=== PATIENT | male | born 1935 | race Caucasian/White ===

== ENCOUNTER 2020-01-28 17:50 | Inpatient (IN) | payer MEDICARE ==
[2020-01-28] MEDS ORDERED: ACETAMINOPHEN TAB 500 MG TAB PO STA (18:35)
[2020-01-28] MEDS ORDERED: DEXAMETHASONE SOD PHOSPHATE 10 MG/ML 1 ML VIAL IV STA (18:37)
[2020-01-28 18:44] LABS: Basophils % (A) 0 %; Eosinophils % (A) 0 %; HCT 48.5 % (39.0-53.0); HGB 16.2 gm/dL (13.0-17.5); Lymphocytes # (A) 0.5 k/uL (1.0-4.8); Lymphocytes % (A) 11 %; MCH 27.4 pg (25.0-35.0); MCHC 33.5 g/dL (31.0-37.0); Mean Platelet Volume 7.7; Monocytes # (A) 0.5 k/uL (0-1.0); Monocytes % (A) 10 %; Neutrophils # (A) 3.4 k/uL (1.3-7.7); Neutrophils % (A) 76 %; Platelet Count 214 k/uL (150-450); RBC 5.91 m/uL (4.30-5.90); RDW 13.5 % (11.5-15.5); WBC 4.5 k/uL (3.8-10.6)
--- NOTE | 2020-01-28 18:45 | ED ---
General Adult HPI - General Chief complaint: Shortness of Breath Stated complaint: covid symptoms Time Seen by Provider: 01/28/20 18:00 Source: patient, EMS Mode of arrival: EMS Limitations: no limitations - History of Present Illness Initial comments: Dictation was produced using [employer] dictation software. please excuse any grammatical, word or spelling errors. This patient was cared for during a federal and state declared state of emergency secondary to Covid 19 Chief Complaint: 84-year-old male with positive Covid 19 tests and increased shortness of breath History of Present Illness: 84-year-old male he is a poor historian. He has past medical history of COPD, dyslipidemia and hypertension. Patient is brought in by EMS. According to the nurse received report patient had tested positive or coronavirus 4 days ago. Him and his were both positive. What seems to be recovering well however patient has been having worsening dyspnea. Patient states he does feel short of breath especially worse with exertion. He denies any fevers however states that he does feel hot. He has no pain complaints. The ROS documented in this emergency department record has been reviewed and confirmed by me. Those systems with pertinent positive or negative responses have been documented in the HPI. All other systems are other negative and/or noncontributory. PHYSICAL EXAM: General Impression: Alert and oriented x3, not in acute distress HEENT: Normocephalic atraumatic, extra-ocular movements intact, pupils equal and reactive to light bilaterally, mucous membranes moist. Cardiovascular: Heart regular rate and rhythm Chest: Able to complete full sentences, no retractions, no tachypnea Abdomen: abdomen soft, non-tender, non-distended, no organomegaly Musculoskeletal: Pulses present and equal in all extremities, no peripheral edema Motor: no focal deficits noted Neurological: CN II-XII grossly intact, no focal motor or sensory deficits noted Skin: Intact with no visualized rashes Psych: Normal affect and mood ED course: 84-year-old male presents with Covid 19. vital signs upon arrival shows temperature 11.3, heart rate 104, 82% on room air. Patient placed on supplemental oxygen. CT angios does not show any PEs. There is extensive pulmonary infiltrates with concern of superimposed pneumonia. Patient started on azithromycin. The patient is hypoxic he is stable with supplemental oxygen. Laboratory evaluation obtained. CBC shows lymphocytopenia. Coag panel is negative. D-dimer is 2.06. Arterial blood gas shows pH is 7.46 with a previous CO2 of 32 and a pO2 54. Metabolic panel is unremarkable. LDH is a 45, CRP is 42.0. Patient be admitted. At this point patient appears to be relatively stable. No indication for ICU admission at this time. Case was discussed with Dr. Mcfadden is willing to accept patients care. Pulmonology will be on consult. EKG interpretation: Ventricular rate 103, sinus tachycardia,. Interval 154, QRS 140, QTc 482. No VA prolongation, no QTC prolongation, no ST or T-wave changes noted. No EKG for comparison. Right bundle branch block - Related Data Allergies Allergy/AdvReac Type Severity Reaction Status Date / Time No Known Allergies Allergy Verified 01/28/20 18:15 Review of Systems ROS Statement: Those systems with pertinent positive or pertinent negative responses have been documented in the HPI. ROS Other: All systems not noted in ROS Statement are negative. Past Medical History Past Medical History: COPD, Diabetes Mellitus Additional Past Medical History / Comment(s): Shingles. History of Any Multi-Drug Resistant Organisms: None Reported Past Surgical History: Hernia Repair Past Psychological History: No Psychological Hx Reported Smoking Status: Former smoker Past Alcohol Use History: Occasional Past Drug Use History: None Reported General Exam Limitations: no limitations Course Vital Signs 01/28/20 01/28/20 18:07 19:21 Temperature 101.3 F H 99.4 F Pulse Rate 104 H Respiratory 22 Rate Blood Pressure 124/68 O2 Sat by Pulse 82 L Oximetry Medical Decision Making - Lab Data Result diagrams: 01/28/20 18:40 01/28/20 18:40 Lab Results 01/28/20 01/28/20 01/28/20 Range/Units 18:40 18:40 18:40 WBC 4.5 (3.8-10.6) k/uL RBC 5.91 H (4.30-5.90) m/uL Hgb 16.2 (13.0-17.5) gm/dL Hct 48.5 (39.0-53.0) % MCV 82.0 (80.0-100.0) fL MCH 27.4 (25.0-35.0) pg MCHC 33.5 (31.0-37.0) g/dL RDW 13.5 (11.5-15.5) % Plt Count 214 (150-450) k/uL MPV 7.7 Neutrophils % 76 % Lymphocytes % 11 % Monocytes % 10 % Eosinophils % 0 % Basophils % 0 % Neutrophils # 3.4 (1.3-7.7) k/uL Lymphocytes # 0.5 L (1.0-4.8) k/uL Monocytes # 0.5 (0-1.0) k/uL Eosinophils # 0.0 (0-0.7) k/uL Basophils # 0.0 (0-0.2) k/uL PT 10.3 (9.0-12.0) sec INR 1.0 (<1.2) APTT 26.1 (22.0-30.0) sec D-Dimer 2.06 H (<0.60) mg/L FEU Sample Site ABG pH (7.35-7.45) ABG pCO2 (35-45) mmHg ABG pO2 (83-108) mmHg ABG HCO3 (21-25) mmol/L ABG Total CO2 (19-24) mmol/L ABG O2 Saturation (94-97) % ABG Base Excess mmol/L Sal Test FiO2 % Sodium 131 L (137-145) mmol/L Potassium 4.4 (3.5-5.1) mmol/L Chloride 101 (98-107) mmol/L Carbon Dioxide 22 (22-30) mmol/L Anion Gap 8 mmol/L BUN 34 H (9-20) mg/dL Creatinine 1.14 (0.66-1.25) mg/dL Est GFR (CKD-EPI)AfAm 69 (>60 ml/min/1.73 sqM) Est GFR (CKD-EPI)NonAf 60 (>60 ml/min/1.73 sqM) Glucose 111 H (74-99) mg/dL Plasma Lactic Acid Cedric (0.7-2.0) mmol/L Calcium 8.9 (8.4-10.2) mg/dL Magnesium 1.9 (1.6-2.3) mg/dL Total Bilirubin 0.8 (0.2-1.3) mg/dL AST 58 (17-59) U/L ALT 30 (4-49) U/L Alkaline Phosphatase 79 (38-126) U/L Lactate Dehydrogenase 849 H (313-618) U/L C-Reactive Protein 42.0 H (<10.0) mg/L Total Protein 6.6 (6.3-8.2) g/dL Albumin 3.4 L (3.5-5.0) g/dL 01/28/20 01/28/20 Range/Units 18:40 19:31 WBC (3.8-10.6) k/uL RBC (4.30-5.90) m/uL Hgb (13.0-17.5) gm/dL Hct (39.0-53.0) % MCV (80.0-100.0) fL MCH (25.0-35.0) pg MCHC (31.0-37.0) g/dL RDW (11.5-15.5) % Plt Count (150-450) k/uL MPV Neutrophils % % Lymphocytes % % Monocytes % % Eosinophils % % Basophils % % Neutrophils # (1.3-7.7) k/uL Lymphocytes # (1.0-4.8) k/uL Monocytes # (0-1.0) k/uL Eosinophils # (0-0.7) k/uL Basophils # (0-0.2) k/uL PT (9.0-12.0) sec INR (<1.2) APTT (22.0-30.0) sec D-Dimer (<0.60) mg/L FEU Sample Site L radial ABG pH 7.46 H (7.35-7.45) ABG pCO2 32 L (35-45) mmHg ABG pO2 54 L* (83-108) mmHg ABG HCO3 22 (21-25) mmol/L ABG Total CO2 23 (19-24) mmol/L ABG O2 Saturation 89.2 L (94-97) % ABG Base Excess -1.5 mmol/L Sal Test Yes FiO2 45 % Sodium (137-145) mmol/L Potassium (3.5-5.1) mmol/L Chloride (98-107) mmol/L Carbon Dioxide (22-30) mmol/L Anion Gap mmol/L BUN (9-20) mg/dL Creatinine (0.66-1.25) mg/dL Est GFR (CKD-EPI)AfAm (>60 ml/min/1.73 sqM) Est GFR (CKD-EPI)NonAf (>60 ml/min/1.73 sqM) Glucose (74-99) mg/dL Plasma Lactic Acid Cedric 1.6 (0.7-2.0) mmol/L Calcium (8.4-10.2) mg/dL Magnesium (1.6-2.3) mg/dL Total Bilirubin (0.2-1.3) mg/dL AST (17-59) U/L ALT (4-49) U/L Alkaline Phosphatase (38-126) U/L Lactate Dehydrogenase (313-618) U/L C-Reactive Protein (<10.0) mg/L Total Protein (6.3-8.2) g/dL Albumin (3.5-5.0) g/dL Critical Care Time Critical Care Time: Yes Total Critical Care Time: 33 Disposition Clinical Impression: COVID-19 Disposition: ADMITTED IP TO THIS [facility] Condition: Critical Referrals: Nonstaff,Physician [Primary Care Provider] - 1-2 days Decision Time: 20:23
[2020-01-28 18:56] LABS: Albumin 3.4 g/dL (3.5-5.0); Calcium 8.9 mg/dL (8.4-10.2); Magnesium 1.9 mg/dL (1.6-2.3); Potassium 4.4 mmol/L (3.5-5.1); Total Bilirubin 0.8 mg/dL (0.2-1.3); Total Protein 6.6 g/dL (6.3-8.2)
[2020-01-28 19:10] LABS: Partial Thromboplastin Time 26.1 sec (22.0-30.0); Prothrombin Time 10.3 sec (9.0-12.0)
[2020-01-28 19:28] LABS: D-Dimer 2.06 mg/L FEU (<0.60)
[2020-01-28 19:34] LABS: ABG Base Excess -1.5 mmol/L; ABG HCO3 22 mmol/L (21-25); ABG Oxygen Saturation 89.2 % (94-97); ABG PCO2 32 mmHg (35-45); ABG PH 7.46 (7.35-7.45); ABG TCO2 23 mmol/L (19-24); Allen Test Performed? Yes
--- NOTE | 2020-01-28 19:44 | XR ---
EXAMINATION TYPE: XR chest 1V portable DATE OF EXAM: 01/28/2020 COMPARISON: NONE HISTORY: Short of breath TECHNIQUE: Single view FINDINGS: There is coarse interstitial infiltrate throughout the lungs. There is some mild coalescent density at the lung bases. There is no definite heart failure. Heart size is normal. There are no hi lar masses. Thoracic aorta is atheromatous. IMPRESSION: Pulmonary interstitial fibrosis. Bilateral pulmonary interstitial infiltrates could relat e to some degree of acute pneumonia. Comparison with an old exam would be helpful. There is no eviden ce of any significant pleural fluid and no cardiomegaly to suggest heart failure.
[2020-01-28 19:48] LABS: ABG PO2 54 mmHg (83-108)
--- NOTE | 2020-01-28 20:17 | CT ---
EXAMINATION TYPE: CT angio chest DATE OF EXAM: 01/28/2020 COMPARISON: None HISTORY: Increased SOB, elevated d-dimer, + covid CT DLP: 701 mGycm Automated exposure control for dose reduction was used. CONTRAST: Performed with IV Contrast, patient injected with 100 mL of Isovue 370. There are 3-D post processed images. There is bullous emphysema. There is coarse groundglass patchy interstitial and airspace infiltrates in the mid and lower lung simon. Heart is borderline enlarged. There is no pericardial effusion. The re is no mediastinal adenopathy. There are no hilar masses. 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 There is no dissection. There is normal contrast opacification of the pulmonary arteries. There are no filling defects. There is no pleural effusion. The thoracic spine is intact. There is no compression fracture. Sternum is intact. I see no bony destructive process. IMPRESSION: No evidence of pulmonary embolism. Extensive pulmonary infiltrates consistent with pulmonary fibrosis and some superimposed mild pneumon ia and atelectasis at the posterior lung bases. There is pulmonary emphysema. Thoracic aortic aneurys m.
[2020-01-28] MEDS ORDERED: AZITHROMYCIN 500 MG in SODIUM CHLORIDE 0.9% 250 ML IVPB STA (20:22)
[2020-01-28] MEDS ORDERED: NALOXONE 0.4 MG/ML 1 ML VIAL IV PRN (20:23)
[2020-01-28] MEDS: SODIUM CHLORIDE 0.9% 1,000 ML IV SCH (21:36)
--- NOTE | 2020-01-28 22:40 | P.HPIM ---
History of Present Illness H&P Date: 01/28/20 Chief Complaint: hypoxemia 84-year-old male with COPD, not on home oxygen, hyperlipidemia, hypertension, diabetes He comes in today for hypoxemia. He reports being diagnosed with converted about 5 days ago, he's been having upper respiratory infection symptoms for about 10 days now he has seen his doctor about it for which she was given azithromycin and Medrol Dosepak. Patient reports that his has been improving however today the bottom a pulse oximeter and when he checked his oxygen level was very low down in the 80s and his was normal for which she decided to come to the hospital He reports coughing productive of yellowish sputum no hemoptysis he denies any recent traveling or hospitalization he denies any history of blood clots he denies any sore throat or body aches he denies any loss of smell or taste sensation. He admits to very mild dyspnea however he feels that overall he's been improving except for the hypoxemia that he discovered today which is making him very concerned He otherwise denies any GI bleeding he denies any nausea vomiting or diarrhea In the ED he was found to have oxygen level in the 80s improved with high flow oxygen he was febrile heartrate is elevated blood pressure was within normal limits Lactic acid was normal He had elevated LDH and CRP elevated d-dimer, CTA of the chest showed no evidence of acute PE however did show omitted fibrosis and superimposed infiltrates Review of Systems Pertinent positives as noted in HPI. All other systems were reviewed and are negative Past Medical History Past Medical History: COPD, Diabetes Mellitus Additional Past Medical History / Comment(s): Shingles. History of Any Multi-Drug Resistant Organisms: None Reported Past Surgical History: Hernia Repair Past Psychological History: No Psychological Hx Reported Smoking Status: Former smoker Past Alcohol Use History: Occasional Past Drug Use History: None Reported - Past Family History Family Family Medical History: No Reported History Medications and Allergies Allergies Allergy/AdvReac Type Severity Reaction Status Date / Time No Known Allergies Allergy Verified 01/28/20 18:15 Physical Exam Vitals: Vital Signs Temp Pulse Resp BP Pulse Ox 01/28/20 19:21 99.4 F 01/28/20 18:07 101.3 F H 104 H 22 124/68 82 L Intake and Output 01/28/20 01/28/20 01/28/20 06:59 14:59 22:59 Other: Weight 104.326 kg Constitutional: No acute distress, conversant, pleasant Eyes: Anicteric sclerae, moist conjunctiva, Pupils equal round reactive to light ENMT: NC/AT Oropharynx clear, no erythema, no exudates Neck: Supple, FROM, no masses, or JVD No carotid bruits No thyromegaly Lungs: Clear to auscultation Clear to percussion Normal respiratory effort, no accessory muscle use Cardiovascular: Heart regular in rate and rhythm, No murmurs, gallops, or rubs No peripheral edema Abdominal: Soft Nontender, no guarding, rebound or rigidity Abdomen moving with respiration Normoactive bowel sounds No hepatomegaly, No splenomegaly No palpable mass No abdominal wall hernia noted Skin: Normal temperature, tone, texture, turgor No induration No subcutaneous nodules No rash, lesions No ulcers Extremities: No digital cyanosis No clubbing Pedal pulses intact and symmetrical Radial pulses intact and symmetrical No calf tenderness Psychiatric: Alert and oriented to person, place and time Appropriate affect fair judgement Neuro Muscles Strength 5/5 in all 4 extremities Sensation to light touch grossly present throughout Cranial nerves II-XII grossly intact No focal sensory deficits Lymphatics: no palpable cervical or supraclavicular , or inguinal lymph nodes Results CBC & Chem 7: 01/28/20 18:40 01/28/20 18:40 Labs: Abnormal Lab Results - Last 24 Hours (Table) 01/28/20 01/28/20 01/28/20 Range/Units 18:40 18:40 18:40 RBC 5.91 H (4.30-5.90) m/uL Lymphocytes # 0.5 L (1.0-4.8) k/uL D-Dimer 2.06 H (<0.60) mg/L FEU Sodium 131 L (137-145) mmol/L BUN 34 H (9-20) mg/dL Glucose 111 H (74-99) mg/dL Lactate Dehydrogenase 849 H (313-618) U/L C-Reactive Protein 42.0 H (<10.0) mg/L Albumin 3.4 L (3.5-5.0) g/dL Assessment and Plan Assessment: Acute hypoxic respiratory failure with underlying Covid 19 Acute viral pneumonitis with positive Covid Plan Supportive care Supplemental oxygen Tylenol for fever Dexamethasone 6 mg by mouth daily for 10 days Ferritin, LDH, CRP, d-dimer for prognostic evaluation EKG showed sinus tachycardia with right bundle branch block Check influenza Contact and droplet precautions Chronic conditions COPD currently compensated resume home inhalers Hyperlipidemia Hypertension resume home meds Diabetes insulin sliding scale CODE STATUS: No code DVT prophylaxis: Heparin subcu 3 times a day Discussed with: Patient, ER, RN Anticipated length of stay more than [address]: Home A total of 75 minutes was spent on the care of this complex patient more than 50% of the time was spent in counseling and care coordination.
--- NOTE | 2020-01-28 22:48 | P.HPADDEND ---
H&P Addendum H&P Addendum Date: 01/28/20 Advanced Care Planning Active diagnoses: Acute hypoxic respiratory failure with cold with pneumonitis Background: The patient was admitted for treatment of Acute hypoxic respiratory failure with cold with pneumonitis Discussion: Person(s) present and participating in discussion: The patient, and myself Summary: Patient is expressing a lot of concerns regarding his low oxygen level with the COVID pneumonitis, patient is requesting that everything medically possible to be done for him he would like to pursue CPR and resuscitation if he experiences cardiopulmonary arrest he's also asking to pursue intubation and vent support if needed he understands that these complications with carry very poor outcomes but he wants everything medically possible to be trialed. He is hoping that he will recover he sees that his is doing well and he hopes that his oxygen problem will improve with the medical treatment. Patient asked questions regarding advancement in the management of Covid and he was willing to try anything available in our hospital to help him improve Time spent: Total time spent face to face in education and discussion directly related to advanced care plannin minutes
[2020-01-28] MEDS ORDERED: DOCUSATE 100 MG CAP PO PRN (22:49)
[2020-01-28] MEDS ORDERED: IPRATROPIUM-ALBUTEROL 3 ML NEB INHALATION PRN (22:50)
[2020-01-29] MEDS: HEPARIN SODIUM,PORCINE 5,000 UNIT/ML 1 ML VIAL SQ SCH ×4 (00:11→20:47)
[2020-01-29] MEDS: ATORVASTATIN 40 MG TAB PO SCH ×2 (00:11→20:46)
[2020-01-29] MEDS: carBAMazepine 200 MG TAB PO SCH ×3 (00:11→20:47)
[2020-01-29 01:15] LABS: Ferritin 1128.7 ng/mL (22.0-322.0)
[2020-01-29 06:26] LABS: Glucose,Whole Blood 113 mg/dL (75-99)
[2020-01-29] MEDS: INSULIN ASPART (NovoLOG) 100 UNIT/ML VIAL SQ SCH ×4 (06:28→23:35)
[2020-01-29 08:34] LABS: Calcium 8.6 mg/dL (8.4-10.2); Potassium 4.3 mmol/L (3.5-5.1)
[2020-01-29] MEDS: TIOTROPIUM 18 MCG/PUFF INHALER INHALATION SCH (08:46)
[2020-01-29] MEDS: SYMBICORT 160-4.5 MCG INHALER INHALATION SCH ×2 (08:46→20:10)
[2020-01-29] MEDS: ALBUTEROL HFA INHALER INHALATION PRN ×3 (08:47→20:10)
[2020-01-29] MEDS: dexAMETHasone 2 MG TAB PO SCH (09:17)
[2020-01-29] MEDS: FLUTICASONE 50MCG/SPRAY NASAL 16GM EA NOSTRIL SCH (09:17)
[2020-01-29] MEDS: ASPIRIN 81 MG PO SCH (09:18)
[2020-01-29] MEDS: ENOXAPARIN 40 MG/0.4 ML SYRINGE SQ SCH (09:18)
[2020-01-29] MEDS: LOSARTAN 50 MG TAB PO SCH (09:18)
[2020-01-29 12:08] LABS: ABG Base Excess -0.2 mmol/L; ABG HCO3 24 mmol/L (21-25); ABG Oxygen Saturation 98.2 % (94-97); ABG PCO2 38 mmHg (35-45); ABG PH 7.42 (7.35-7.45); ABG PO2 104 mmHg (83-108); ABG TCO2 26 mmol/L (19-24); Allen Test Performed? Yes
[2020-01-29 12:15] LABS: Glucose,Whole Blood 120 mg/dL (75-99)
[2020-01-29] MEDS: ZINC SULFATE 220 MG CAP PO SCH (12:53)
[2020-01-29] MEDS: ASCORBIC ACID 500 MG TAB PO SCH (12:53)
[2020-01-29] MEDS: CHOLECALCIFEROL 1,000 UNIT TAB PO SCH (12:53)
[2020-01-29] MEDS: FAMOTIDINE 20 MG TAB PO SCH (12:53)
[2020-01-29] MEDS ORDERED: REMDESIVIR 200 MG in SODIUM CHLORIDE 0.9% 250 ML IVPB ONE (17:00)
[2020-01-29 17:01] LABS: Glucose,Whole Blood 126 mg/dL (75-99)
--- NOTE | 2020-01-29 17:23 | CONS ---
CONSULTATION PULMONARY/CRITICAL CARE CONSULTATION: DATE OF SERVICE: January 29, 2020 REASON FOR CONSULTATION: Shortness of breath. HISTORY OF PRESENT ILLNESS: This is an 84-year-old male who I am asked to see. The patient comes into the emergency room via EMS. He came with complaints of shortness of breath. He is a very poor historian. Apparently, him and his recently tested positive for COVID-19. The patient states that he tested positive some 7 days ago. The ER erin mentioned 4 days ago. The patient apparently does have a history of underlying COPD, hypertension and hyperlipidemia. The patient states that he was doing okay initially at home, but over the last couple days it has just been getting worse. He complains of being fatigued and tired. He is also much more short of breath. He has chest congestion, cough and slight fever. Coughing up a bit of phlegm. Apparently his is doing better than he. Anyway, the patient was admitted with a diagnosis of possible COVID 19 pneumonia. He was seen by Dr. Bridges in the emergency department. Currently, the patient is on AIRVO. His he is using at 60 L/minutes and 80% FiO2. His saturations are 95%. ALLERGIES: Denied. HOME MEDICATIONS: Include metformin, Lipitor, Spiriva, Flonase Allergy relief, Symbicort, losartan, lisinopril/hydrochlorothiazide, Tegretol, aspirin, Colace, Medrol Dosepak, and Zithromax. Those were recently prescribed to him. He is also on albuterol inhaler and/or albuterol updrafts. PAST MEDICAL HISTORY: Includes COPD, diabetes, and shingles. He also has a history of underlying COPD, and hyperlipidemia as well as hypertension. SURGICAL HISTORY: Includes hernia repair. SOCIAL HISTORY: Positive for previous heavy tobacco use. Does not smoke currently. He does drink alcohol occasionally. Denies any illicit drug use. FAMILY HISTORY: Noncontributory. REVIEW OF SYSTEMS: CONSTITUTIONAL: Weakness, fatigue, muscle aches. NEUROLOGIC negative. HEENT negative. CARDIOVASCULAR is negative. PULMONARY: Shortness of breath, chest congestion, cough, chest tightness and phlegm production. GI negative. negative. RHEUMATOLOGIC negative. IMMUNOLOGIC negative. ENDOCRINOLOGIC negative. DERMATOLOGIC: Negative. PHYSICAL EXAMINATION: VITAL SIGNS: Current vital signs are reviewed. Temperature is 98.7, heart rate 104, respiratory rate 20, blood pressure 99/67 mean 77 and saturations are 95%, but that is on AIRVO at 60 L/minute and FiO2 of 80%. GENERAL: Appears mildly tachypneic. No wheezes. No conversational dyspnea, no use of accessory muscles. HEENT: Examination is grossly unremarkable. AIRVO cannula noted. NECK: Supple. Full range of motion. No adenopathy. Neck veins are flat. CARDIOVASCULAR: Examination reveals regular rhythm and rate. Heart rate 100 beats per minute. It is regular. Heart sounds are distant. LUNGS: Reveal a number of different things including diffuse bibasilar crackles. There is also some expiratory rhonchi and some wheezes. Breath sounds equal bilaterally but diminished throughout. ABDOMEN: Soft. Bowel sounds are heard. EXTREMITIES are intact. No edema. SKIN: Without rash. NEUROLOGIC: Examination is brief but nonfocal. LABS: Reviewed. White count 4.5, hemoglobin 16.2, hematocrit 48.5, platelet count 214,000. PT 10.3, INR 1, PTT 26.1. D-dimer 2.06. Blood gases show pO2 of 104, pCO2 of 38, and pH is 7.42. That was on 80%. On 45%, his PO2 is 54, pCO2 of 32, and pH of 7.46. Sodium 139, potassium 4.3 chloride 102, CO2 26, anion gap is 7, BUN and creatinine were 32 and 1.15. Ferritin of 1128.7, LDH 849. C-reactive protein 42. Procalcitonin 0.11. Microbiology is currently pending or negative. Chest CT reveals no evidence of pulmonary embolism. There is some interstitial fibrosis noted. In addition, there is some ground-glass opacities as well. Also, there is some changes that suggest emphysema/COPD. Current medications are reviewed. He is currently on Tylenol, albuterol inhaler, vitamin C, aspirin, Lipitor, Symbicort, Tegretol, vitamin D3, Decadron, Colace, Lovenox, Pepcid, fluticasone nasal spray, subcu heparin, losartan, melatonin, Narcan, Remdesivir which we started today, saline IV, Spiriva and zinc. ASSESSMENT: 1. Shortness of breath, likely multifactorial, in part related to underlying chronic obstructive pulmonary disease exacerbation, chronic interstitial fibrosis, and Covid 19 pneumonitis/pneumonia. 2. Previous history of heavy tobacco use. 3. History of diabetes mellitus. 4. History of shingles. 5. History of hyperlipidemia. 6. Hypertension by history. PLAN: The patient's medications are reviewed. Everything appears to be appropriate. We will continue on Symbicort, 2 puffs twice a day. Additional recommendations and suggestions are forthcoming. The patient is on vitamin C, vitamin D, and zinc. The patient is also on Decadron. The patient was started on Remdesivir today. The patient will be maintained on albuterol inhaler, Spiriva and Symbicort. Prognosis is guarded. No additional recommendations are made. MMODL / IJN: [id number] / MTDD
[2020-01-29] MEDS ORDERED: TAMSULOSIN 0.4 MG CAP.ER.24H PO STA (19:38)
--- NOTE | 2020-01-29 19:38 | P.PN ---
Subjective Progress Note Date: 01/29/20 (delayed charting seen at 1130) Principal diagnosis: shortness of breath Patient is an 84-year-old male for history of COPD not requiring oxygen therapy, diabetes, and shingles who presented to the emergency department with complaints of worsening dyspnea. He was diagnosed with coated 5 days prior to admission. He has been taking Zithromax and a Medrol Dosepak. On arrival to the ER he was febrile with a temperature of 101.3, pulse 104, O2 saturation 82% on room air. Laboratory analysis demonstrated lymphopenia, d-dimer of 2, sodium 131 on a BUN 34, creatinine 1.14, ferritin 1128, LDH 849, CRP 42, pro- calcitonin 0.11. Chest x-ray demonstrated pulmonary interstitial fibrosis with bilateral interstitial infiltrates. CT of the chest showed extensive pulmonary infiltrates consistent with pulmonary fibrosis and some superimposed pneumonia and atelectasis, no evidence of pulmonary embolism. Arrangements were made for admission for coated 19 pneumonitis. He was started on IV fluids, Lovenox, and dexamethasone. He was admitted to the selective care unit. He was requiring AirVo. Pulmonary was consulted. He was started on zinc, vitamin C, vitamin D, and melatonin. After being seen by pulmonary who was started on Remdesivir. Patient seen and examined at bedside. he is clearly confused. He states his breathing is better than yesterday, he is coughing less, no nausea, no vomiting, not feeling very hungry. General: Ill appearing, mild distress, appears at stated age Derm: warm, dry Head: atraumatic, normocephalic, symmetric Eyes: EOMI, no lid lag, anicteric sclera Mouth: no lip lesion, mucus membranes moist Cardiovascular: S1 and S2 tachycardic, no murmur, positive posterior tibial pulse bilateral, Lungs: Coarse breath sounds bilateral, 3 word conversational dyspnea, sternal retractions Abdominal: soft, nontender to palpation, no guarding, no appreciable organomegaly Ext: no gross muscle atrophy, no edema, no contractures Neuro: CN II-XI grossly intact, no focal neuro deficits Psych: Alert to being in the hospital but easily confused, appropriate affect COVID 19 pneumonitis with acute hypoxic respiratory failure -Dexamethasone, zinc, vitamin C, vitamin D, Pepcid, melatonin -Pulmonary recommendations:Remedesivir -IV fluids -Follow inflammatory markers -Follow chest x-ray -Wean O2 as able COPD without acute exacerbation -Continue with albuterol, Spiriva, and Symbicort -Pulmonary recommendations -Pulmonary hygiene Metabolic encephalopathy -Supportive care -Frequent reorientation -To check an ABG which did not reveal any signs of hypoxia or hyper A.m., glucose within normal range Diabetes mellitus type 2 -Metformin on hold -Sliding-scale insulin -Follow blood sugars -Check hemoglobin A1c Urinary retention with penile implant - consult urology Dyslipidemia -Statin therapy Hypertension -Continue with Cozaar, hold hydrochlorothiazide -Follow blood pressures Prognosis Guarded DVT prophylaxis: lovenox Discussed with: Patient, nursing Anticipated discharge: 7-[address]: A total of 35 minutes was spent on the care of this complex patient more than 50% of the time was spent in counseling and care coordination. Objective - Vital Signs Vital signs: Vital Signs Temp 98.7 F 01/29/20 16:50 Pulse 94 01/29/20 16:50 Resp 20 01/29/20 16:50 BP 102/64 01/29/20 16:50 Pulse Ox 97 01/29/20 16:50 Intake & Output 01/29/20 01/29/20 01/30/20 06:59 18:59 06:59 Intake Total 870 360 Output Total 3 350 Balance 867 10 Weight 102.5 kg Intake: Intake, IV Titration 390 Amount Azithromycin 500 mg In 250 Sodium Chloride 0.9% 250 ml @ 250 mls/hr IVPB ONCE STA Rx#:[id number] Sodium Chloride 0.9% 1, 140 000 ml @ 75 mls/hr IV . [id number] [facility] Rx#:[id number] Oral 480 360 Output: Urine 3 350 Other: Voiding Method Urinal # Voids 450 - Labs CBC & Chem 7: 01/28/20 18:40 01/29/20 06:47 Labs: Abnormal Lab Results - Last 24 Hours (Table) 01/28/20 01/28/20 01/28/20 Range/Units 18:40 18:40 18:40 D-Dimer 2.06 H (<0.60) mg/L FEU ABG pH (7.35-7.45) ABG pCO2 (35-45) mmHg ABG pO2 (83-108) mmHg ABG Total CO2 (19-24) mmol/L ABG O2 Saturation (94-97) % Sodium (137-145) mmol/L BUN (9-20) mg/dL Glucose (74-99) mg/dL POC Glucose (mg/dL) (75-99) mg/dL Ferritin 1128.7 H (22.0-322.0) ng/mL Procalcitonin 0.11 H (0.02-0.09) ng/mL 01/28/20 01/29/20 01/29/20 Range/Units 19:31 06:25 06:47 D-Dimer (<0.60) mg/L FEU ABG pH 7.46 H (7.35-7.45) ABG pCO2 32 L (35-45) mmHg ABG pO2 54 L* (83-108) mmHg ABG Total CO2 (19-24) mmol/L ABG O2 Saturation 89.2 L (94-97) % Sodium 135 L (137-145) mmol/L BUN 32 H (9-20) mg/dL Glucose 112 H (74-99) mg/dL POC Glucose (mg/dL) 113 H (75-99) mg/dL Ferritin (22.0-322.0) ng/mL Procalcitonin (0.02-0.09) ng/mL 01/29/20 01/29/20 01/29/20 Range/Units 11:53 11:55 16:54 D-Dimer (<0.60) mg/L FEU ABG pH (7.35-7.45) ABG pCO2 (35-45) mmHg ABG pO2 (83-108) mmHg ABG Total CO2 26 H (19-24) mmol/L ABG O2 Saturation 98.2 H (94-97) % Sodium (137-145) mmol/L BUN (9-20) mg/dL Glucose (74-99) mg/dL POC Glucose (mg/dL) 120 H 126 H (75-99) mg/dL Ferritin (22.0-322.0) ng/mL Procalcitonin (0.02-0.09) ng/mL
[2020-01-29] MEDS: MELATONIN 5 MG TABLET PO SCH (20:46)
[2020-01-29 21:25] LABS: Glucose,Whole Blood 107 mg/dL (75-99)
[2020-01-29] MEDS: SODIUM CHLORIDE 0.9% 1,000 ML IV SCH (23:35)
[2020-01-30 06:38] LABS: Glucose,Whole Blood 110 mg/dL (75-99)
[2020-01-30] MEDS: INSULIN ASPART (NovoLOG) 100 UNIT/ML VIAL SQ SCH ×4 (06:43→20:40)
[2020-01-30 08:01] LABS: Basophils % (A) 0 %; Eosinophils % (A) 0 %; HGB 14.9 gm/dL (13.0-17.5); Lymphocytes # (A) 0.6 k/uL (1.0-4.8); Lymphocytes % (A) 13 %; MCH 27.6 pg (25.0-35.0); MCHC 33.1 g/dL (31.0-37.0); MCV 83.3 fL (80.0-100.0); Mean Platelet Volume 7.7; Monocytes # (A) 0.4 k/uL (0-1.0); Monocytes % (A) 9 %; Neutrophils # (A) 3.5 k/uL (1.3-7.7); Neutrophils % (A) 76 %; Platelet Count 260 k/uL (150-450); RDW 13.6 % (11.5-15.5); WBC 4.6 k/uL (3.8-10.6)
[2020-01-30] MEDS: ALBUTEROL HFA INHALER INHALATION PRN ×4 (08:17→19:18)
[2020-01-30] MEDS: SYMBICORT 160-4.5 MCG INHALER INHALATION SCH ×2 (08:17→19:18)
[2020-01-30] MEDS: TIOTROPIUM 18 MCG/PUFF INHALER INHALATION SCH (08:17)
[2020-01-30 08:26] LABS: Albumin 2.8 g/dL (3.5-5.0); C Reactive Protein 34.2 mg/L (<10.0); Calcium 8.6 mg/dL (8.4-10.2); Magnesium 1.8 mg/dL (1.6-2.3); Potassium 4.4 mmol/L (3.5-5.1); Total Bilirubin 0.5 mg/dL (0.2-1.3); Total Protein 5.7 g/dL (6.3-8.2)
[2020-01-30] MEDS: ENOXAPARIN 40 MG/0.4 ML SYRINGE SQ SCH (10:16)
[2020-01-30] MEDS: HEPARIN SODIUM,PORCINE 5,000 UNIT/ML 1 ML VIAL SQ SCH ×2 (10:16→17:12)
[2020-01-30] MEDS: ZINC SULFATE 220 MG CAP PO SCH (10:17)
[2020-01-30] MEDS: TAMSULOSIN 0.4 MG CAP.ER.24H PO SCH (10:17)
[2020-01-30] MEDS: FAMOTIDINE 20 MG TAB PO SCH (10:17)
[2020-01-30] MEDS: ASPIRIN 81 MG PO SCH (10:17)
[2020-01-30] MEDS: ASCORBIC ACID 500 MG TAB PO SCH (10:17)
[2020-01-30] MEDS: CHOLECALCIFEROL 1,000 UNIT TAB PO SCH (10:18)
[2020-01-30] MEDS: FLUTICASONE 50MCG/SPRAY NASAL 16GM EA NOSTRIL SCH (10:18)
[2020-01-30] MEDS: LOSARTAN 50 MG TAB PO SCH (10:18)
[2020-01-30] MEDS: dexAMETHasone 2 MG TAB PO SCH (10:18)
--- NOTE | 2020-01-30 10:23 | P.GSCN ---
History of Present Illness Consult date: 01/30/20 Reason for Consult: Urinary Retention Requesting physician: Shelbie Meehan History of present illness: The patient is an 84-year-old white male with a history of COPD, admitted with dyspnea due to COVID-19. He has had 3 penile implants, the most recent being placed in October 2018 in [place], [place]. He takes tamsulosin for BPH. He experienced difficulty voiding yesterday, and bladder scan showed a postvoid residual of 400 mL. A subsequent bladder scan showed a postvoid residual of 200 mL, and the patient currently denies voiding difficulty. Review of Systems - Respiratory Reports dyspnea - Genitourinary Reports as per HPI Past Medical History Past Medical History: COPD, Diabetes Mellitus Additional Past Medical History / Comment(s): Shingles. History of Any Multi-Drug Resistant Organisms: None Reported Past Surgical History: Hernia Repair Past Psychological History: No Psychological Hx Reported Smoking Status: Former smoker Past Alcohol Use History: Occasional Past Drug Use History: None Reported - Past Family History Family Family Medical History: No Reported History Medications and Allergies Home Medications Medication Instructions Recorded Confirmed Type Aspirin [Adult Low Dose Aspirin EC] 81 mg PO DAILY 01/28/20 01/28/20 History Atorvastatin Calcium [Lipitor] 40 mg PO HS 01/28/20 01/28/20 History Azithromycin [Zithromax] See Taper PO DAILY 01/28/20 01/28/20 History Budesonide-Formot 160-4.5 Mcg 2 puff INHALATION RT-BID 01/28/20 01/28/20 History [Symbicort 160-4.5 Mcg Inhaler] Docusate [Colace] 100 mg PO BID PRN 01/28/20 01/28/20 History Fluticasone Propionate [Flonase 1 spray EA NOSTRIL DAILY 01/28/20 01/28/20 History Allergy Relief] Hydrochlorothiazide 12.5 mg PO DAILY 01/28/20 01/28/20 History [hydroCHLOROthiazide] Losartan Potassium [Cozaar] 50 mg PO DAILY 01/28/20 01/28/20 History Tiotropium [place] [Spiriva] 1 cap INHALATION RT-DAILY 01/28/20 01/28/20 History carBAMazepine 200 mg PO Q12H 01/28/20 01/28/20 History metFORMIN HCL 500 mg PO HS 01/28/20 01/28/20 History methylPREDNISolone Dose Pack See Taper PO DAILY 01/28/20 01/28/20 History [Medrol Dose Pack] Allergies Allergy/AdvReac Type Severity Reaction Status Date / Time No Known Allergies Allergy Verified 01/28/20 22:40 Surgical - Exam Vital Signs Temp Pulse Resp BP Pulse Ox 101.3 F H 104 H 22 124/68 82 L 01/28/20 18:07 01/28/20 18:07 01/28/20 18:07 01/28/20 18:07 01/28/20 18:07 - General well developed, well nourished, moderate distress - Psychiatric oriented to time, oriented to person, oriented to place, speech is normal, memory intact Results - Labs 01/30/20 07:27 01/30/20 07:27 Abnormal Lab Results - Last 24 Hours (Table) 01/29/20 01/29/20 01/29/20 Range/Units 06:47 11:53 11:55 ABG Total CO2 26 H (19-24) mmol/L ABG O2 Saturation 98.2 H (94-97) % Sodium 135 L (137-145) mmol/L BUN 32 H (9-20) mg/dL Glucose 112 H (74-99) mg/dL POC Glucose (mg/dL) 120 H (75-99) mg/dL 01/29/20 01/29/20 01/30/20 Range/Units 16:54 21:24 06:35 ABG Total CO2 (19-24) mmol/L ABG O2 Saturation (94-97) % Sodium (137-145) mmol/L BUN (9-20) mg/dL Glucose (74-99) mg/dL POC Glucose (mg/dL) 126 H 107 H 110 H (75-99) mg/dL Microbiology - Last 24 Hours (Table) 01/28/20 18:40 Blood Culture - Preliminary Blood No Growth after 24 hours Diabetes panel 01/29/20 Range/Units 06:47 Sodium 135 L (137-145) mmol/L Potassium 4.3 (3.5-5.1) mmol/L Chloride 102 (98-107) mmol/L Carbon Dioxide 26 (22-30) mmol/L BUN 32 H (9-20) mg/dL Creatinine 1.15 (0.66-1.25) mg/dL Glucose 112 H (74-99) mg/dL Calcium 8.6 (8.4-10.2) mg/dL Calcium panel 01/29/20 Range/Units 06:47 Calcium 8.6 (8.4-10.2) mg/dL Pituitary panel 01/29/20 Range/Units 06:47 Sodium 135 L (137-145) mmol/L Potassium 4.3 (3.5-5.1) mmol/L Chloride 102 (98-107) mmol/L Carbon Dioxide 26 (22-30) mmol/L BUN 32 H (9-20) mg/dL Creatinine 1.15 (0.66-1.25) mg/dL Glucose 112 H (74-99) mg/dL Calcium 8.6 (8.4-10.2) mg/dL Adrenal panel 01/29/20 Range/Units 06:47 Sodium 135 L (137-145) mmol/L Potassium 4.3 (3.5-5.1) mmol/L Chloride 102 (98-107) mmol/L Carbon Dioxide 26 (22-30) mmol/L BUN 32 H (9-20) mg/dL Creatinine 1.15 (0.66-1.25) mg/dL Glucose 112 H (74-99) mg/dL Calcium 8.6 (8.4-10.2) mg/dL Assessment and Plan (1) Benign prostatic hyperplasia with lower urinary tract symptoms Current Visit: Yes Status: Acute Code(s): N40.1 - BENIGN PROSTATIC HYPERPLASIA WITH LOWER URINARY TRACT SYMP SNOMED Code(s): 516403024 Plan: Continue tamsulosin. Straight cath when necessary. Please notify us if we can be of any further assistance. Time with Patient: Less than 30
[2020-01-30 11:55] LABS: Ferritin 849.5 ng/mL (22.0-322.0)
[2020-01-30 12:32] LABS: Glucose,Whole Blood 187 mg/dL (75-99)
--- NOTE | 2020-01-30 12:53 | P.PN ---
Subjective Progress Note Date: 01/30/20 Principal diagnosis: shortness of breath Patient is an 84-year-old male for history of COPD not requiring oxygen therapy, diabetes, and shingles who presented to the emergency department with complaints of worsening dyspnea. He was diagnosed with coated 5 days prior to admission. He has been taking Zithromax and a Medrol Dosepak. On arrival to the ER he was febrile with a temperature of 101.3, pulse 104, O2 saturation 82% on room air. Laboratory analysis demonstrated lymphopenia, d-dimer of 2, sodium 131 on a BUN 34, creatinine 1.14, ferritin 1128, LDH 849, CRP 42, pro- calcitonin 0.11. Chest x-ray demonstrated pulmonary interstitial fibrosis with bilateral interstitial infiltrates. CT of the chest showed extensive pulmonary infiltrates consistent with pulmonary fibrosis and some superimposed pneumonia and atelectasis, no evidence of pulmonary embolism. Arrangements were made for admission for coated 19 pneumonitis. He was started on IV fluids, Lovenox, and dexamethasone. He was admitted to the selective care unit. He was requiring AirVo. Pulmonary was consulted. He was started on zinc, vitamin C, vitamin D, and melatonin. After being seen by pulmonary who was started on Remdesivir. He continued to require AirVo through the morning of 01/29. Patient seen and examined at bedside. He is still feeling short of breath. He continues to have coughing. He has no chest pain, no nausea, still with loss of appetite. General: ill appearing, mild distress, appears at stated age Derm: warm, dry Head: atraumatic, normocephalic, symmetric Eyes: EOMI, no lid lag, anicteric sclera Mouth: no lip lesion, mucus membranes moist Cardiovascular: S1 and S2 tachycardic, no murmur, positive posterior tibial pulse bilateral, Lungs: ronchi bilateral, 3 word conversational dyspnea, no accessory muscles use Abdominal: soft, nontender to palpation, no guarding, no appreciable organomegaly Ext: no gross muscle atrophy, no edema, no contractures Neuro: CN II-XI grossly intact, no focal neuro deficits Psych: Alert and oriented X 3, still the delayed thinking. Appropriate affect COVID 19 pneumonitis with acute hypoxic respiratory failure -Dexamethasone, zinc, vitamin C, vitamin D, Pepcid, melatonin -Pulmonary recommendations:Remedesivir -IV fluids -Follow inflammatory markers -Follow chest x-ray -Wean O2 as able COPD without acute exacerbation -Continue with albuterol, Spiriva, and Symbicort -Pulmonary recommendations -Pulmonary hygiene Metabolic encephalopathy -Supportive care -Frequent reorientation Diabetes mellitus type 2 -Metformin on hold -Sliding-scale insulin -Follow blood sugars -Await hemoglobin A1c Urinary retention with penile implant - flomax - improved on repeat bladder scan - Urology recs appreciated Dyslipidemia -Statin therapy Hypertension -Continue with Cozaar, hold hydrochlorothiazide -Follow blood pressures Prognosis Guarded. updated over phone. She confirmed full code status. She states that she is only 72 years old and will be able to take care of him at home at time of discharge. DVT prophylaxis: lovenox Discussed with: Patient, nursing Anticipated discharge: 6-[address]: A total of 35 minutes was spent on the care of this complex patient more than 50% of the time was spent in counseling and care coordination. Objective - Vital Signs Vital signs: Vital Signs Temp 98.9 F 01/30/20 04:00 Pulse 90 01/30/20 04:00 Resp 20 01/30/20 04:00 BP 118/76 01/30/20 04:00 Pulse Ox 93 L 01/30/20 04:00 Intake & Output 01/29/20 01/30/20 01/30/20 18:59 06:59 18:59 Intake Total 360 375 120 Output Total 350 550 325 Balance 10 -175 -205 Weight 104 kg Intake: Intake, IV Titration 375 Amount Sodium Chloride 0.9% 1, 375 000 ml @ 75 mls/hr IV . [id number] [facility] Rx#:[id number] Oral 360 120 Output: Urine 350 550 325 Other: Voiding Method Urinal - Labs CBC & Chem 7: 01/30/20 07:27 01/30/20 07:27 Labs: Abnormal Lab Results - Last 24 Hours (Table) 01/29/20 01/29/20 01/30/20 Range/Units 16:54 21:24 06:35 Lymphocytes # (1.0-4.8) k/uL D-Dimer (<0.60) mg/L FEU Chloride (98-107) mmol/L BUN (9-20) mg/dL Glucose (74-99) mg/dL POC Glucose (mg/dL) 126 H 107 H 110 H (75-99) mg/dL Ferritin (22.0-322.0) ng/mL Lactate Dehydrogenase (313-618) U/L C-Reactive Protein (<10.0) mg/L Total Protein (6.3-8.2) g/dL Albumin (3.5-5.0) g/dL 01/30/20 01/30/20 01/30/20 Range/Units 07:27 07:27 07:27 Lymphocytes # 0.6 L (1.0-4.8) k/uL D-Dimer 1.71 H (<0.60) mg/L FEU Chloride 109 H (98-107) mmol/L BUN 24 H (9-20) mg/dL Glucose 114 H (74-99) mg/dL POC Glucose (mg/dL) (75-99) mg/dL Ferritin 849.5 H (22.0-322.0) ng/mL Lactate Dehydrogenase 732 H (313-618) U/L C-Reactive Protein 34.2 H (<10.0) mg/L Total Protein 5.7 L (6.3-8.2) g/dL Albumin 2.8 L (3.5-5.0) g/dL 01/30/20 Range/Units 12:15 Lymphocytes # (1.0-4.8) k/uL D-Dimer (<0.60) mg/L FEU Chloride (98-107) mmol/L BUN (9-20) mg/dL Glucose (74-99) mg/dL POC Glucose (mg/dL) 187 H (75-99) mg/dL Ferritin (22.0-322.0) ng/mL Lactate Dehydrogenase (313-618) U/L C-Reactive Protein (<10.0) mg/L Total Protein (6.3-8.2) g/dL Albumin (3.5-5.0) g/dL Microbiology - Last 24 Hours (Table) 01/28/20 18:40 Blood Culture - Preliminary Blood No Growth after 24 hours
[2020-01-30 13:12] LABS: Hemoglobin A1C 6.6 % (4.0-6.0)
[2020-01-30] MEDS: SODIUM CHLORIDE 0.9% 1,000 ML IV SCH (14:57)
[2020-01-30] MEDS: carBAMazepine 200 MG TAB PO SCH ×2 (14:58→20:39)
[2020-01-30 17:42] LABS: Glucose,Whole Blood 146 mg/dL (75-99)
[2020-01-30] MEDS: REMDESIVIR 100 MG in SODIUM CHLORIDE 0.9% 250 ML IVPB SCH (17:53)
--- NOTE | 2020-01-30 17:54 | P.PN ---
Subjective Progress Note Date: 01/30/20 Principal diagnosis: The patient is seen today 01/30/2020 in follow-up on the selective care unit. He was brought into the emergency room yesterday via EMS with platelets of short ness of breath cough and congestion. He is a poor historian. His states they were both recently tested positive for cocaine 19. His test was at least 7 days prior to his arrival. He does have a history of underlying COPD, hypertension, hyperlipidemia. He was quite hypoxemic on arrival. He is currently on AirVo at 60 L and 80% FiO2 to maintain O2 saturations in the 90s. CT angiogram ruled out pulmonary embolism. There is noted extensive pulmonary infiltrates consistent with pulmonary fibrosis and some superimposed mild pneumonia and atelectasis of the posterior lung bases. Pulmonary emphysema. He was initiated on Remdesivir yesterday. He is currently afebrile. White count 4.6. Hemoglobin 14.9. D-dimer 1.71. Sodium 138. Potassium 4.4. Creatinine 1.04. Ferritin 849. LDH 732. C-reactive protein 34. He remains on vitamin C, vitamin D, dexamethasone, melatonin, zinc, Lovenox. He is on bronchodilators. Objective - Vital Signs Vital signs: Vital Signs Temp 98.9 F 01/30/20 11:20 Pulse 97 01/30/20 11:20 Resp 18 01/30/20 11:20 BP 104/70 01/30/20 11:20 Pulse Ox 98 01/30/20 11:20 Intake & Output 01/29/20 01/30/20 01/30/20 18:59 06:59 18:59 Intake Total 360 375 360 Output Total 350 550 325 Balance 10 -175 35 Weight 104 kg Intake: Intake, IV Titration 375 Amount Sodium Chloride 0.9% 1, 375 000 ml @ 75 mls/hr IV . [id number] [facility] Rx#:[id number] Oral 360 360 Output: Urine 350 550 325 Other: Voiding Method Urinal - Exam GENERAL EXAM: Alert, frail 84-year-old gentleman, on AirVo at 60 L and 80% FiO2, comfortable in no apparent distress. HEAD: Normocephalic. EYES: Normal reaction of pupils, equal size. NOSE: Clear with pink turbinates. THROAT: No erythema or exudates. NECK: No masses, no JVD. CHEST: No chest wall deformity. LUNGS: Equal air entry with bilateral scattered rhonchi CVS: S1 and S2 normal with no audible murmur, regular rhythm. ABDOMEN: No hepatosplenomegaly, normal bowel sounds, no guarding or rigidity. SPINE: No scoliosis or deformity SKIN: No rashes CENTRAL NERVOUS SYSTEM: No focal deficits, tone is normal in all 4 extremities. EXTREMITIES: There is no peripheral edema. No clubbing, no cyanosis. Peripheral pulses are intact. - Labs CBC & Chem 7: 01/30/20 07:27 01/30/20 07:27 Labs: Abnormal Lab Results - Last 24 Hours (Table) 01/29/20 01/30/20 01/30/20 Range/Units 21:24 06:35 07:27 Lymphocytes # (1.0-4.8) k/uL D-Dimer (<0.60) mg/L FEU Chloride (98-107) mmol/L BUN (9-20) mg/dL Glucose (74-99) mg/dL POC Glucose (mg/dL) 107 H 110 H (75-99) mg/dL Hemoglobin A1c 6.6 H (4.0-6.0) % Ferritin (22.0-322.0) ng/mL Lactate Dehydrogenase (313-618) U/L C-Reactive Protein (<10.0) mg/L Total Protein (6.3-8.2) g/dL Albumin (3.5-5.0) g/dL 01/30/20 01/30/20 01/30/20 Range/Units 07:27 07:27 07:27 Lymphocytes # 0.6 L (1.0-4.8) k/uL D-Dimer 1.71 H (<0.60) mg/L FEU Chloride 109 H (98-107) mmol/L BUN 24 H (9-20) mg/dL Glucose 114 H (74-99) mg/dL POC Glucose (mg/dL) (75-99) mg/dL Hemoglobin A1c (4.0-6.0) % Ferritin 849.5 H (22.0-322.0) ng/mL Lactate Dehydrogenase 732 H (313-618) U/L C-Reactive Protein 34.2 H (<10.0) mg/L Total Protein 5.7 L (6.3-8.2) g/dL Albumin 2.8 L (3.5-5.0) g/dL 01/30/20 01/30/20 Range/Units 12:15 17:28 Lymphocytes # (1.0-4.8) k/uL D-Dimer (<0.60) mg/L FEU Chloride (98-107) mmol/L BUN (9-20) mg/dL Glucose (74-99) mg/dL POC Glucose (mg/dL) 187 H 146 H (75-99) mg/dL Hemoglobin A1c (4.0-6.0) % Ferritin (22.0-322.0) ng/mL Lactate Dehydrogenase (313-618) U/L C-Reactive Protein (<10.0) mg/L Total Protein (6.3-8.2) g/dL Albumin (3.5-5.0) g/dL Microbiology - Last 24 Hours (Table) 01/28/20 18:40 Blood Culture - Preliminary Blood No Growth after 24 hours Assessment and Plan Assessment: 1 Acute hypoxemic respiratory failure secondary to Coumadin 19 pneumonitis with underlying chronic interstitial fibrosis and COPD 2 Prior history of heavy tobacco dependence 3 Diabetes mellitus 4 History of shingles 5 Hyperlipidemia 6 Hypertension Plan: The patient was seen and evaluated by Dr. Hancock Continued on Remdesivir Continue the current treatment plan Titrate the FiO2 as tolerated Repeat chest x-ray in the a.m. We will continue to follow I, the cosigning physician, performed a history & physical examination of the patient. Lungs sounds scattered rhonchi Maintaining good O2 saturations in the 90s on AirVo at 60L and 80% FiO2. I discussed the assessment and plan of care with my nurse practitioner, Eliz Millan. I attest to the above note as dictated by her.
[2020-01-30 20:28] LABS: Glucose,Whole Blood 137 mg/dL (75-99)
[2020-01-30] MEDS: ATORVASTATIN 40 MG TAB PO SCH (20:38)
[2020-01-30] MEDS: MELATONIN 5 MG TABLET PO SCH (20:39)
[2020-01-31] MEDS: HEPARIN SODIUM,PORCINE 5,000 UNIT/ML 1 ML VIAL SQ SCH ×2 (03:26→08:58)
[2020-01-31] MEDS: SODIUM CHLORIDE 0.9% 1,000 ML IV SCH ×3 (03:54→14:14)
[2020-01-31 06:27] LABS: Glucose,Whole Blood 119 mg/dL (75-99)
[2020-01-31] MEDS: INSULIN ASPART (NovoLOG) 100 UNIT/ML VIAL SQ SCH ×4 (07:06→20:55)
[2020-01-31] MEDS: ALBUTEROL HFA INHALER INHALATION PRN ×3 (08:00→19:38)
[2020-01-31] MEDS: SYMBICORT 160-4.5 MCG INHALER INHALATION SCH ×2 (08:00→19:38)
[2020-01-31] MEDS: TIOTROPIUM 18 MCG/PUFF INHALER INHALATION SCH (08:00)
[2020-01-31 08:21] LABS: Basophils % (A) 0 %; Eosinophils % (A) 0 %; HCT 41.5 % (39.0-53.0); HGB 13.7 gm/dL (13.0-17.5); Lymphocytes # (A) 0.4 k/uL (1.0-4.8); Lymphocytes % (A) 8 %; MCHC 33.1 g/dL (31.0-37.0); MCV 84.5 fL (80.0-100.0); Mean Platelet Volume 7.6; Monocytes # (A) 0.4 k/uL (0-1.0); Monocytes % (A) 9 %; Neutrophils # (A) 3.4 k/uL (1.3-7.7); Neutrophils % (A) 81 %; Platelet Count 233 k/uL (150-450); RDW 13.4 % (11.5-15.5); WBC 4.2 k/uL (3.8-10.6)
[2020-01-31 08:31] LABS: ALT 26 U/L (4-49); AST 53 U/L (17-59); African American GFR (CKD) >90 (>60 ml/min/1.73 sqM); Albumin 2.4 g/dL (3.5-5.0); Alkaline Phosphatase 60 U/L (38-126); Anion Gap 3 mmol/L; Blood Urea Nitrogen 21 mg/dL (9-20); C Reactive Protein 43.5 mg/L (<10.0); Carbon Dioxide 23 mmol/L (22-30); Chloride 112 mmol/L (98-107); Glucose 115 mg/dL (74-99); LDH 697 U/L (313-618); Magnesium 1.7 mg/dL (1.6-2.3); Non-African American GFR(CKD) 85 (>60 ml/min/1.73 sqM); Sodium 138 mmol/L (137-145); Total Bilirubin 0.6 mg/dL (0.2-1.3)
[2020-01-31] MEDS: FAMOTIDINE 20 MG TAB PO SCH (08:53)
[2020-01-31] MEDS: ASCORBIC ACID 500 MG TAB PO SCH (08:54)
[2020-01-31] MEDS: TAMSULOSIN 0.4 MG CAP.ER.24H PO SCH (08:54)
[2020-01-31] MEDS: dexAMETHasone 2 MG TAB PO SCH (08:54)
[2020-01-31] MEDS: CHOLECALCIFEROL 1,000 UNIT TAB PO SCH (08:54)
[2020-01-31] MEDS: ASPIRIN 81 MG PO SCH (08:54)
[2020-01-31] MEDS: LOSARTAN 50 MG TAB PO SCH (08:54)
[2020-01-31] MEDS: ZINC SULFATE 220 MG CAP PO SCH (08:57)
[2020-01-31] MEDS: ENOXAPARIN 40 MG/0.4 ML SYRINGE SQ SCH (08:58)
[2020-01-31] MEDS: FLUTICASONE 50MCG/SPRAY NASAL 16GM EA NOSTRIL SCH (10:25)
--- NOTE | 2020-01-31 11:22 | XR ---
EXAMINATION TYPE: XR chest 1V DATE OF EXAM: 01/31/2020 COMPARISON: Prior chest x-ray and CT 01/28/2020 HISTORY: Covid pneumonia TECHNIQUE: Single frontal view of the chest is obtained. FINDINGS: Bilateral airspace disease persists. No evident pneumothorax or pleural effusion. Cardiac mediastinal silhouette is stable. Aorta is dense. Patient is rotated. IMPRESSION: Findings consistent with patient's history of pneumonia. There is underlying emphysema.
[2020-01-31] MEDS: carBAMazepine 200 MG TAB PO SCH ×2 (12:08→20:59)
[2020-01-31 12:27] LABS: Glucose,Whole Blood 201 mg/dL (75-99)
--- NOTE | 2020-01-31 14:06 | P.PN ---
Subjective Progress Note Date: 01/31/20 Patient is an 84-year-old male for history of COPD not requiring oxygen therapy, diabetes, and shingles who presented to the emergency department with complaints of worsening dyspnea. He was diagnosed with coated 5 days prior to admission. He has been taking Zithromax and a Medrol Dosepak. On arrival to the ER he was febrile with a temperature of 101.3, pulse 104, O2 saturation 82% on room air. Laboratory analysis demonstrated lymphopenia, d-dimer of 2, sodium 131 on a BUN 34, creatinine 1.14, ferritin 1128, LDH 849, CRP 42, pro- calcitonin 0.11. Chest x-ray demonstrated pulmonary interstitial fibrosis with bilateral interstitial infiltrates. CT of the chest showed extensive pulmonary infiltrates consistent with pulmonary fibrosis and some superimposed pneumonia and atelectasis, no evidence of pulmonary embolism. Arrangements were made for admission for coated 19 pneumonitis. He was started on IV fluids, Lovenox, and dexamethasone. He was admitted to the selective care unit. He was requiring AirVo. Pulmonary was consulted. He was started on zinc, vitamin C, vitamin D, a nd melatonin. After being seen by pulmonary, he was started on Remdesivir. He continued to require AirVo through the morning of 01/29. Patient was seen and evaluated at the bedside on 01/30. The patient continues to be Airvo dependent. She reports continued shortness of breath and coughing though denied any additional complaints. Denied chest pain, nausea, vomiting. General: Ill-appearing male, in no acute distress, appears stated age HEENT: NC/AT, anicteric sclerae, moist conjunctiva, no lid-lag, PERRLA Cardiovascular: S1/S2 wnl, no murmurs, rubs, or gallops Lungs: Bilateral rhonchi, with no wheezing or rales appreciated, normal respiratory effort, no accessory muscle use Abdominal: Soft, non-tender, non-distended, no guarding, rebound, or rigidity Skin: Warm, dry Extremities: No edema or contractures Psychiatric: Alert and oriented to person and place only, not oriented to time, appropriate affect Neuro: CN II-XII grossly intact, Strength 3/5 in all 4 extremities, Speech intact, Sensation to light touch grossly intact throughout COVID 19 pneumonitis with acute hypoxic respiratory failure -Dexamethasone, zinc, vitamin C, vitamin D, Pepcid, melatonin -Pulmonary recommendations appreciated:Remedesivir -IV fluids -Follow inflammatory markers -Follow chest x-ray -Wean O2 as able COPD without acute exacerbation -Continue with albuterol, Spiriva, and Symbicort -Pulmonary recommendations -Pulmonary hygiene Metabolic encephalopathy -Supportive care -Frequent reorientation Diabetes mellitus type 2 -Metformin on hold -Sliding-scale insulin -Follow blood sugars -A1C 6.6 Urinary retention with penile implant - flomax - improved on repeat bladder scan - Urology recs appreciated Dyslipidemia -Statin therapy Hypertension -Continue with Cozaar, hold hydrochlorothiazide -Follow blood pressures Prognosis Guarded. updated over phone. She confirmed full code status. She states that she is only 72 years old and will be able to take care of him at home at time of discharge. DVT prophylaxis: lovenox Discussed with: Patient, nursing Anticipated discharge: 7+ days Anticipated discharge place: Home A total of 35 minutes was spent on the care of this complex patient more than 50% of the time was spent in counseling and care coordination. Objective - Vital Signs Vital signs: Vital Signs Temp 99.1 F 01/31/20 12:00 Pulse 100 01/31/20 12:00 Resp 20 01/31/20 12:00 BP 121/61 01/31/20 12:00 Pulse Ox 92 L 01/31/20 12:00 Intake & Output 01/30/20 01/31/20 01/31/20 18:59 06:59 18:59 Intake Total 1810 240 Output Total 325 600 Balance 1485 -360 Weight 107.5 kg Intake: Intake, IV Titration 850 Amount Remdesivir (Eua) 100 mg 250 In Sodium Chloride 0.9% 250 ml @ 250 mls/hr IVPB DAILY@1700 [facility] Rx#: [id number] Sodium Chloride 0.9% 1, 600 000 ml @ 75 mls/hr IV . [id number] [facility] Rx#:[id number] Oral 960 240 Output: Urine 325 600 Other: Voiding Method Urinal # Voids 2 1 - Labs CBC & Chem 7: 01/31/20 07:37 01/31/20 07:37 Labs: Abnormal Lab Results - Last 24 Hours (Table) 01/30/20 01/30/20 01/31/20 Range/Units 17:28 20:26 06:26 Lymphocytes # (1.0-4.8) k/uL D-Dimer (<0.60) mg/L FEU Chloride (98-107) mmol/L BUN (9-20) mg/dL Glucose (74-99) mg/dL POC Glucose (mg/dL) 146 H 137 H 119 H (75-99) mg/dL Calcium (8.4-10.2) mg/dL Lactate Dehydrogenase (313-618) U/L C-Reactive Protein (<10.0) mg/L Total Protein (6.3-8.2) g/dL Albumin (3.5-5.0) g/dL 01/31/20 01/31/20 01/31/20 Range/Units 07:37 07:37 07:37 Lymphocytes # 0.4 L (1.0-4.8) k/uL D-Dimer 1.40 H (<0.60) mg/L FEU Chloride 112 H (98-107) mmol/L BUN 21 H (9-20) mg/dL Glucose 115 H (74-99) mg/dL POC Glucose (mg/dL) (75-99) mg/dL Calcium 8.0 L (8.4-10.2) mg/dL Lactate Dehydrogenase 697 H (313-618) U/L C-Reactive Protein 43.5 H (<10.0) mg/L Total Protein 5.0 L (6.3-8.2) g/dL Albumin 2.4 L (3.5-5.0) g/dL 01/31/20 Range/Units 12:25 Lymphocytes # (1.0-4.8) k/uL D-Dimer (<0.60) mg/L FEU Chloride (98-107) mmol/L BUN (9-20) mg/dL Glucose (74-99) mg/dL POC Glucose (mg/dL) 201 H (75-99) mg/dL Calcium (8.4-10.2) mg/dL Lactate Dehydrogenase (313-618) U/L C-Reactive Protein (<10.0) mg/L Total Protein (6.3-8.2) g/dL Albumin (3.5-5.0) g/dL Microbiology - Last 24 Hours (Table) 01/28/20 18:40 Blood Culture - Preliminary Blood No Growth after 48 hours
[2020-01-31 17:03] LABS: Ferritin 691.8 ng/mL (22.0-322.0)
[2020-01-31 17:13] LABS: Glucose,Whole Blood 149 mg/dL (75-99)
[2020-01-31] MEDS: REMDESIVIR 100 MG in SODIUM CHLORIDE 0.9% 250 ML IVPB SCH (17:47)
--- NOTE | 2020-01-31 18:28 | P.PN ---
Subjective Progress Note Date: 01/31/20 Principal diagnosis: Acute hypoxic respiratory failure related to COVID 19, chronic interstitial fibrosis and COPD The patient is seen today 01/30/2020 in follow-up on the selective care unit. He was brought into the emergency room yesterday via EMS with platelets of shortness of breath cough and congestion. He is a poor historian. His states they were both recently tested positive for cocaine 19. His test was at least 7 days prior to his arrival. He does have a history of underlying COPD, hypertension, hyperlipidemia. He was quite hypoxemic on arrival. He is c urrently on AirVo at 60 L and 80% FiO2 to maintain O2 saturations in the 90s. CT angiogram ruled out pulmonary embolism. There is noted extensive pulmonary infiltrates consistent with pulmonary fibrosis and some superimposed mild pneumonia and atelectasis of the posterior lung bases. Pulmonary emphysema. He was initiated on Remdesivir yesterday. He is currently afebrile. White count 4.6. Hemoglobin 14.9. D-dimer 1.71. Sodium 138. Potassium 4.4. Creatinine 1.04. Ferritin 849. LDH 732. C-reactive protein 34. He remains on vitamin C, vitamin D, dexamethasone, melatonin, zinc, Lovenox. He is on bronchodilators. On 01/31/2020 patient seen in follow-up on the selective care unit, patient was found to be positive for COVID 19, this is a day two of Remdesivir, remains on high flow oxygen,via Airvo at 60 l/min, Fio2 81%, and pulse ox is 97-98%, he is confused, but appears to be in no acute respiratory distress, at times he has a congested cough, not bringing up much sputum, blood and was seen and is infusing at 75 ML per hour. T-max is 99.3F, hemodynamically stable, denies any chest pain, today's chest x-ray showing bilateral airspace disease, with a background of emphysematous changes. CRP is relatively stable, currently at 43.5, LDH is trending down, down to 697, calcitonin 0.11, damage decreasing, at 1.4. Blood culture is negative at the 48 hour jelani. Lymphopenia continues, with the lymphocyte count is 0.4, white count is 4.2, hemoglobin is 13.7. Denies any fever or chills, no chest pain. No nausea or vomiting. Objective - Vital Signs Vital signs: Vital Signs Temp 99.3 F 01/31/20 16:00 Pulse 75 01/31/20 16:00 Resp 22 01/31/20 16:00 BP 119/64 01/31/20 16:00 Pulse Ox 92 L 01/31/20 16:00 Intake & Output 01/30/20 01/31/20 01/31/20 18:59 06:59 18:59 Intake Total 2222 649 8719 Output Total 325 600 Balance 1485 -360 1070 Weight 107.5 kg Intake: IV 600 Sodium Chloride 0.9% 1, 600 000 ml @ 75 mls/hr IV . [id number] [facility] Rx#:[id number] Intake, IV Titration 850 250 Amount Remdesivir (Eua) 100 mg 250 250 In Sodium Chloride 0.9% 250 ml @ 250 mls/hr IVPB DAILY@1700 [facility] Rx#: [id number] Sodium Chloride 0.9% 1, 600 000 ml @ 75 mls/hr IV . [id number] [facility] Rx#:[id number] Oral 960 240 220 Output: Urine 325 600 Other: Voiding Method Urinal # Voids 2 1 - Exam GENERAL EXAM: Alert, very pleasant, 84-year-old white male, on high flow oxygen per Airvo at 60 l/min, Fio2 81% of the pulse ox between 90-97% comfortable in no apparent distress. HEAD: Normocephalic/atraumatic. EYES: Normal reaction of pupils, equal size. Conjunctiva pink, sclera white. NOSE: Clear with pink turbinates. THROAT: No erythema or exudates. NECK: No masses, no JVD, no thyroid enlargement, no adenopathy. CHEST: No chest wall deformity. Symmetrical expansion. LUNGS: Equal air entry with no crackles, wheeze, rhonchi or dullness. CVS: Regular rate and rhythm, normal S1 and S2, no gallops, no murmurs, no rubs ABDOMEN: Soft, nontender. No hepatosplenomegaly, normal bowel sounds, no guarding or rigidity. EXTREMITIES: No clubbing, no edema, no cyanosis, 2+ pulses and upper and lower extremities. MUSCULOSKELETAL: Muscle strength and tone normal. SPINE: No scoliosis or deformity SKIN: No rashes CENTRAL NERVOUS SYSTEM: Alert and oriented -3. No focal deficits, tone is normal in all 4 extremities. PSYCHIATRIC: Alert and oriented -3. Appropriate affect. Intact judgment and insight. - Labs CBC & Chem 7: 01/31/20 07:37 01/31/20 07:37 Labs: Abnormal Lab Results - Last 24 Hours (Table) 01/30/20 01/31/20 01/31/20 Range/Units 20:26 06:26 07:37 Lymphocytes # 0.4 L (1.0-4.8) k/uL D-Dimer (<0.60) mg/L FEU Chloride (98-107) mmol/L BUN (9-20) mg/dL Glucose (74-99) mg/dL POC Glucose (mg/dL) 137 H 119 H (75-99) mg/dL Calcium (8.4-10.2) mg/dL Ferritin (22.0-322.0) ng/mL Lactate Dehydrogenase (313-618) U/L C-Reactive Protein (<10.0) mg/L Total Protein (6.3-8.2) g/dL Albumin (3.5-5.0) g/dL 01/31/20 01/31/20 01/31/20 Range/Units 07:37 07:37 12:25 Lymphocytes # (1.0-4.8) k/uL D-Dimer 1.40 H (<0.60) mg/L FEU Chloride 112 H (98-107) mmol/L BUN 21 H (9-20) mg/dL Glucose 115 H (74-99) mg/dL POC Glucose (mg/dL) 201 H (75-99) mg/dL Calcium 8.0 L (8.4-10.2) mg/dL Ferritin 691.8 H (22.0-322.0) ng/mL Lactate Dehydrogenase 697 H (313-618) U/L C-Reactive Protein 43.5 H (<10.0) mg/L Total Protein 5.0 L (6.3-8.2) g/dL Albumin 2.4 L (3.5-5.0) g/dL 01/31/20 Range/Units 17:11 Lymphocytes # (1.0-4.8) k/uL D-Dimer (<0.60) mg/L FEU Chloride (98-107) mmol/L BUN (9-20) mg/dL Glucose (74-99) mg/dL POC Glucose (mg/dL) 149 H (75-99) mg/dL Calcium (8.4-10.2) mg/dL Ferritin (22.0-322.0) ng/mL Lactate Dehydrogenase (313-618) U/L C-Reactive Protein (<10.0) mg/L Total Protein (6.3-8.2) g/dL Albumin (3.5-5.0) g/dL Microbiology - Last 24 Hours (Table) 01/28/20 18:40 Blood Culture - Preliminary Blood No Growth after 48 hours Assessment and Plan Plan: Assessment: 1 Acute hypoxemic respiratory failure secondary to COVID 19 pneumonitis with underlying chronic interstitial fibrosis and COPD, started on Remdesivir on 01/30/2020 2 Prior history of heavy tobacco dependence 3 Diabetes mellitus 4 History of shingles 5 Hyperlipidemia 6 Hypertension Plan: Continue weaning FiO2, continue Remdesivir, continue decadron, Pepcid, bronchodilators, vitamin C, vitamin C and zinc, we'll continue to follow inflammatory markers, his chest x-ray has been reviewed, still showing bilateral airspace disease, patient has been afebrile, still requiring high amount of oxygen, continue close monitoring. I performed a history & physical examination of the patient and discussed their management with my nurse practitioner, Dorys Palm. I reviewed the nurse practitioner's note and agree with the documented findings and plan of care. Lung sounds are positive for diminished breath sounds. The findings and the impression was discussed with the patient. I attest to the documentation by the nurse practitioner. Time with Patient: Less than 30
[2020-01-31 20:23] LABS: Glucose,Whole Blood 114 mg/dL (75-99)
[2020-01-31] MEDS: ATORVASTATIN 40 MG TAB PO SCH (20:59)
[2020-01-31] MEDS: MELATONIN 5 MG TABLET PO SCH (20:59)
[2020-02-01 06:20] LABS: Glucose,Whole Blood 111 mg/dL (75-99)
[2020-02-01] MEDS: INSULIN ASPART (NovoLOG) 100 UNIT/ML VIAL SQ SCH ×4 (06:22→22:22)
[2020-02-01] MEDS: TAMSULOSIN 0.4 MG CAP.ER.24H PO SCH (08:37)
[2020-02-01] MEDS: CHOLECALCIFEROL 1,000 UNIT TAB PO SCH (08:37)
[2020-02-01] MEDS: LOSARTAN 50 MG TAB PO SCH (08:37)
[2020-02-01] MEDS: FAMOTIDINE 20 MG TAB PO SCH (08:37)
[2020-02-01] MEDS: dexAMETHasone 2 MG TAB PO SCH (08:37)
[2020-02-01] MEDS: ASCORBIC ACID 500 MG TAB PO SCH (08:37)
[2020-02-01] MEDS: ASPIRIN 81 MG PO SCH (08:38)
[2020-02-01] MEDS: ZINC SULFATE 220 MG CAP PO SCH (08:38)
[2020-02-01] MEDS: FLUTICASONE 50MCG/SPRAY NASAL 16GM EA NOSTRIL SCH (08:38)
[2020-02-01] MEDS: ALBUTEROL HFA INHALER INHALATION PRN (08:59)
[2020-02-01] MEDS: TIOTROPIUM 18 MCG/PUFF INHALER INHALATION SCH (08:59)
[2020-02-01] MEDS: SYMBICORT 160-4.5 MCG INHALER INHALATION SCH ×2 (08:59→22:00)
[2020-02-01] MEDS ORDERED: ENOXAPARIN 40 MG/0.4 ML SYRINGE SQ SCH (09:00)
[2020-02-01 09:12] LABS: Basophils % (A) 0 %; Eosinophils % (A) 0 %; HGB 12.5 gm/dL (13.0-17.5); Lymphocytes # (A) 0.4 k/uL (1.0-4.8); Lymphocytes % (A) 7 %; MCV 84.8 fL (80.0-100.0); Mean Platelet Volume 7.8; Monocytes # (A) 0.4 k/uL (0-1.0); Monocytes % (A) 7 %; Neutrophils # (A) 4.5 k/uL (1.3-7.7); Neutrophils % (A) 84 %; Platelet Count 245 k/uL (150-450); RBC 4.48 m/uL (4.30-5.90); RDW 13.5 % (11.5-15.5); WBC 5.3 k/uL (3.8-10.6)
[2020-02-01 09:27] LABS: ALT 27 U/L (4-49); AST 54 U/L (17-59); African American GFR (CKD) >90 (>60 ml/min/1.73 sqM); Alkaline Phosphatase 47 U/L (38-126); Anion Gap 3 mmol/L; Blood Urea Nitrogen 18 mg/dL (9-20); C Reactive Protein 65.8 mg/L (<10.0); Calcium 6.8 mg/dL (8.4-10.2); Carbon Dioxide 19 mmol/L (22-30); Chloride 117 mmol/L (98-107); Glucose 92 mg/dL (74-99); LDH 746 U/L (313-618); Magnesium 1.5 mg/dL (1.6-2.3); Non-African American GFR(CKD) >90 (>60 ml/min/1.73 sqM); Potassium 3.7 mmol/L (3.5-5.1); Sodium 139 mmol/L (137-145); Total Bilirubin 0.6 mg/dL (0.2-1.3); Total Protein 4.3 g/dL (6.3-8.2)
[2020-02-01] MEDS ORDERED: ACETAMINOPHEN SUPPOSITORY 650 MG SUPP RECTAL PRN (11:42)
[2020-02-01 12:03] LABS: Glucose,Whole Blood 112 mg/dL (75-99)
[2020-02-01] MEDS: carBAMazepine 200 MG TAB PO SCH ×2 (13:09→22:31)
--- NOTE | 2020-02-01 14:31 | P.PN ---
Subjective Progress Note Date: 02/01/20 Patient is an 84-year-old male for history of COPD not requiring oxygen therapy, diabetes, and shingles who presented to the emergency department with complaints of worsening dyspnea. He was diagnosed with coated 5 days prior to admission. He has been taking Zithromax and a Medrol Dosepak. On arrival to the ER he was febrile with a temperature of 101.3, pulse 104, O2 saturation 82% on room air. Laboratory analysis demonstrated lymphopenia, d-dimer of 2, sodium 131 on a BUN 34, creatinine 1.14, ferritin 1128, LDH 849, CRP 42, pro- calcitonin 0.11. Chest x-ray demonstrated pulmonary interstitial fibrosis with bilateral interstitial infiltrates. CT of the chest showed extensive pulmonary infiltrates consistent with pulmonary fibrosis and some superimposed pneumonia and atelectasis, no evidence of pulmonary embolism. Arrangements were made for admission for coated 19 pneumonitis. He was started on IV fluids, Lovenox, and dexamethasone. He was admitted to the selective care unit. He was requiring AirVo. Pulmonary was consulted. He was started on zinc, vitamin C, vitamin D, and melatonin. After being seen by pulmonary, he was started on Remdesivir. Patient was seen and evaluated at the bedside on 01/31. The patient continues to be Airvo dependent. The patient was lethargic during the interview today. He followed basic commands but did not wish to answer many questions as he said "i am tired". General: Ill-appearing male, in no acute distress, appears stated age HEENT: NC/AT, anicteric sclerae, moist conjunctiva, no lid-lag, PERRLA Cardiovascular: S1/S2 wnl, no murmurs, rubs, or gallops Lungs: Bilateral rhonchi, with no wheezing or rales appreciated, normal r espiratory effort, no accessory muscle use Abdominal: Soft, non-tender, non-distended, no guarding, rebound, or rigidity Skin: Warm, dry Extremities: No edema or contractures Psychiatric: Lethargic male, following commands but falls asleep during the interview Neuro: CN II-XII grossly intact, no focal neuro deficits noted COVID 19 pneumonitis with acute hypoxic respiratory failure -Dexamethasone, zinc, vitamin C, vitamin D, Pepcid, melatonin -Pulmonary recommendations appreciated: Remedesivir day 3 -IV fluids -Follow inflammatory markers -Follow chest x-ray -Wean O2 as able -Attempt proning Hypomagnasemia -Replace and monitor COPD without acute exacerbation -Continue with albuterol, Spiriva, and Symbicort -Pulmonary recommendations -Pulmonary hygiene Metabolic encephalopathy -Supportive care -Frequent reorientation Diabetes mellitus type 2 -Metformin on hold -Sliding-scale insulin -Follow blood sugars -A1C 6.6 Urinary retention with penile implant - flomax - improved on repeat bladder scan - Urology recs appreciated Dyslipidemia -Statin therapy Hypertension -Continue with Cozaar, hold hydrochlorothiazide -Follow blood pressures Prognosis Guarded. Discussed the case in detail with patient's (Meri Tucker) who notes that she would like for him to be intubated if need be. She notes that this is what he would have wanted as well as he is "a fighter". DVT prophylaxis: lovenox Discussed with: Patient, nursing Anticipated discharge: 7+ days Anticipated discharge place: Home A total of 35 minutes was spent on the care of this complex patient more than 50% of the time was spent in counseling and care coordination. Objective - Vital Signs Vital signs: Vital Signs Temp 100.2 F H 02/01/20 11:21 Pulse 99 02/01/20 11:21 Resp 24 02/01/20 12:00 BP 124/76 02/01/20 11:21 Pulse Ox 93 L 02/01/20 11:21 Intake & Output 01/31/20 02/01/20 02/01/20 18:59 06:59 18:59 Intake Total 1070 Output Total 360 Balance 1070 -360 Weight 101 kg Intake: IV 600 Sodium Chloride 0.9% 1, 600 000 ml @ 75 mls/hr IV . [id number] [facility] Rx#:[id number] Intake, IV Titration 250 Amount Remdesivir (Eua) 100 mg 250 In Sodium Chloride 0.9% 250 ml @ 250 mls/hr IVPB DAILY@1700 [facility] Rx#: [id number] Oral 220 Output: Urine 360 Other: Voiding Method Urinal Urinal # Voids 1 1 # Bowel Movements 1 0 - Labs CBC & Chem 7: 02/01/20 09:00 02/01/20 07:49 Labs: Abnormal Lab Results - Last 24 Hours (Table) 01/31/20 01/31/20 01/31/20 Range/Units 07:37 17:11 20:22 Hgb (13.0-17.5) gm/dL Hct (39.0-53.0) % Lymphocytes # (1.0-4.8) k/uL D-Dimer (<0.60) mg/L FEU Chloride (98-107) mmol/L Carbon Dioxide (22-30) mmol/L POC Glucose (mg/dL) 149 H 114 H (75-99) mg/dL Calcium (8.4-10.2) mg/dL Magnesium (1.6-2.3) mg/dL Ferritin 691.8 H (22.0-322.0) ng/mL Lactate Dehydrogenase (313-618) U/L C-Reactive Protein (<10.0) mg/L Total Protein (6.3-8.2) g/dL Albumin (3.5-5.0) g/dL 02/01/20 02/01/20 02/01/20 Range/Units 06:19 07:49 07:49 Hgb (13.0-17.5) gm/dL Hct (39.0-53.0) % Lymphocytes # (1.0-4.8) k/uL D-Dimer 3.20 H (<0.60) mg/L FEU Chloride 117 H (98-107) mmol/L Carbon Dioxide 19 L (22-30) mmol/L POC Glucose (mg/dL) 111 H (75-99) mg/dL Calcium 6.8 L (8.4-10.2) mg/dL Magnesium 1.5 L (1.6-2.3) mg/dL Ferritin (22.0-322.0) ng/mL Lactate Dehydrogenase 746 H (313-618) U/L C-Reactive Protein 65.8 H (<10.0) mg/L Total Protein 4.3 L (6.3-8.2) g/dL Albumin 2.0 L (3.5-5.0) g/dL 02/01/20 02/01/20 Range/Units 09:00 11:46 Hgb 12.5 L (13.0-17.5) gm/dL Hct 38.0 L (39.0-53.0) % Lymphocytes # 0.4 L (1.0-4.8) k/uL D-Dimer (<0.60) mg/L FEU Chloride (98-107) mmol/L Carbon Dioxide (22-30) mmol/L POC Glucose (mg/dL) 112 H (75-99) mg/dL Calcium (8.4-10.2) mg/dL Magnesium (1.6-2.3) mg/dL Ferritin (22.0-322.0) ng/mL Lactate Dehydrogenase (313-618) U/L C-Reactive Protein (<10.0) mg/L Total Protein (6.3-8.2) g/dL Albumin (3.5-5.0) g/dL Microbiology - Last 24 Hours (Table) 01/28/20 18:40 Blood Culture - Preliminary Blood No Growth after 72 hours
[2020-02-01] MEDS: MAGNESIUM SULFATE-D5W PMX 1 GM in DEXTROSE/WATER 1 100ML.BAG IVPB SCH ×2 (15:21→16:52)
[2020-02-01 15:45] LABS: Ferritin 644.5 ng/mL (22.0-322.0)
--- NOTE | 2020-02-01 16:17 | P.PN ---
Subjective Progress Note Date: 02/01/20 Principal diagnosis: Acute hypoxic respiratory failure related to COVID 19, chronic interstitial fibrosis and COPD The patient is seen today 01/30/2020 in follow-up on the selective care unit. He was brought into the emergency room yesterday via EMS with platelets of shortness of breath cough and congestion. He is a poor historian. His states they were both recently tested positive for COVID 19. His test was at least 7 days prior to his arrival. He does have a history of underlying COPD, hypertension, hyperlipidemia. He was quite hypoxemic on arrival. He is cur rently on AirVo at 60 L and 80% FiO2 to maintain O2 saturations in the 90s. CT angiogram ruled out pulmonary embolism. There is noted extensive pulmonary infiltrates consistent with pulmonary fibrosis and some superimposed mild pneumonia and atelectasis of the posterior lung bases. Pulmonary emphysema. He was initiated on Remdesivir yesterday. He is currently afebrile. White count 4.6. Hemoglobin 14.9. D-dimer 1.71. Sodium 138. Potassium 4.4. Creatinine 1.04. Ferritin 849. LDH 732. C-reactive protein 34. He remains on vitamin C, vitamin D, dexamethasone, melatonin, zinc, Lovenox. He is on bronchodilators. On 01/31/2020 patient seen in follow-up on the selective care unit, patient was found to be positive for COVID 19, this is a day two of Remdesivir, remains on high flow oxygen,via Airvo at 60 l/min, Fio2 81%, and pulse ox is 97-98%, he is confused, but appears to be in no acute respiratory distress, at times he has a congested cough, not bringing up much sputum, blood and was seen and is infusing at 75 ML per hour. T-max is 99.3F, hemodynamically stable, denies any chest pain, today's chest x-ray showing bilateral airspace disease, with a background of emphysematous changes. CRP is relatively stable, currently at 43.5, LDH is trending down, down to 697, calcitonin 0.11, damage decreasing, at 1.4. Blood culture is negative at the 48 hour jelani. Lymphopenia continues, with the lymphocyte count is 0.4, white count is 4.2, hemoglobin is 13.7. Denies any fe stacia or chills, no chest pain. No nausea or vomiting. On 02/01/2020 patient seen in follow-up on the selective care unit, patient was admitted with Covid 19 related to pneumonia, he continues on Remdesivir, today is day three. Still requiring high flow oxygen at 60 l/min, Fio2 84%, pulse ox of 91-93%. Continues to be febrile, low-grade fevers, with a T-max of 100.2F. Continues on bronchodilators, he is on Lovenox prophylactically, gentle IV hydration continues with 0.9 normal saline at a rate is 75 ML per hour. he continues on oral Decadron. Today d-dimer is 3.20, is increased from 1.2. Objective - Vital Signs Vital signs: Vital Signs Temp 100.0 F H 02/01/20 15:14 Pulse 106 H 02/01/20 15:14 Resp 22 02/01/20 15:14 BP 114/65 02/01/20 15:14 Pulse Ox 91 L 02/01/20 15:14 Intake & Output 01/31/20 02/01/20 02/01/20 18:59 06:59 18:59 Intake Total 1070 Output Total 360 Balance 1070 -360 Weight 101 kg Intake: IV 600 Sodium Chloride 0.9% 1, 600 000 ml @ 75 mls/hr IV . [id number] EMI Rx#:[id number] Intake, IV Titration 250 Amount Remdesivir (Eua) 100 mg 250 In Sodium Chloride 0.9% 250 ml @ 250 mls/hr IVPB DAILY@1700 EMI Rx#: [id number] Oral 220 Output: Urine 360 Other: Voiding Method Urinal Urinal # Voids 1 1 # Bowel Movements 1 0 - Exam GENERAL EXAM: Alert, very pleasant, 84-year-old white male, on high flow oxygen per Airvo at 60 l/min, Fio2 81% of the pulse ox between 91% comfortable in no apparent distress. HEAD: Normocephalic/atraumatic. EYES: Normal reaction of pupils, equal size. Conjunctiva pink, sclera white. NOSE: Clear with pink turbinates. THROAT: No erythema or exudates. NECK: No masses, no JVD, no thyroid enlargement, no adenopathy. CHEST: No chest wall deformity. Symmetrical expansion. LUNGS: Equal air entry with no crackles, wheeze, rhonchi or dullness. CVS: Regular rate and rhythm, normal S1 and S2, no gallops, no murmurs, no rubs ABDOMEN: Soft, nontender. No hepatosplenomegaly, normal bowel sounds, no guarding or rigidity. EXTREMITIES: No clubbing, no edema, no cyanosis, 2+ pulses and upper and lower extremities. MUSCULOSKELETAL: Muscle strength and tone normal. SPINE: No scoliosis or deformity SKIN: No rashes CENTRAL NERVOUS SYSTEM: Alert and oriented -3. No focal deficits, tone is normal in all 4 extremities. PSYCHIATRIC: Alert and oriented -3. Appropriate affect. Intact judgment and insight. - Labs CBC & Chem 7: 02/01/20 09:00 02/01/20 07:49 Labs: Abnormal Lab Results - Last 24 Hours (Table) 01/31/20 01/31/20 01/31/20 Range/Units 07:37 17:11 20:22 Hgb (13.0-17.5) gm/dL Hct (39.0-53.0) % Lymphocytes # (1.0-4.8) k/uL D-Dimer (<0.60) mg/L FEU Chloride (98-107) mmol/L Carbon Dioxide (22-30) mmol/L POC Glucose (mg/dL) 149 H 114 H (75-99) mg/dL Calcium (8.4-10.2) mg/dL Magnesium (1.6-2.3) mg/dL Ferritin 691.8 H (22.0-322.0) ng/mL Lactate Dehydrogenase (313-618) U/L C-Reactive Protein (<10.0) mg/L Total Protein (6.3-8.2) g/dL Albumin (3.5-5.0) g/dL 02/01/20 02/01/20 02/01/20 Range/Units 06:19 07:49 07:49 Hgb (13.0-17.5) gm/dL Hct (39.0-53.0) % Lymphocytes # (1.0-4.8) k/uL D-Dimer 3.20 H (<0.60) mg/L FEU Chloride 117 H (98-107) mmol/L Carbon Dioxide 19 L (22-30) mmol/L POC Glucose (mg/dL) 111 H (75-99) mg/dL Calcium 6.8 L (8.4-10.2) mg/dL Magnesium 1.5 L (1.6-2.3) mg/dL Ferritin 644.5 H (22.0-322.0) ng/mL Lactate Dehydrogenase 746 H (313-618) U/L C-Reactive Protein 65.8 H (<10.0) mg/L Total Protein 4.3 L (6.3-8.2) g/dL Albumin 2.0 L (3.5-5.0) g/dL 02/01/20 02/01/20 Range/Units 09:00 11:46 Hgb 12.5 L (13.0-17.5) gm/dL Hct 38.0 L (39.0-53.0) % Lymphocytes # 0.4 L (1.0-4.8) k/uL D-Dimer (<0.60) mg/L FEU Chloride (98-107) mmol/L Carbon Dioxide (22-30) mmol/L POC Glucose (mg/dL) 112 H (75-99) mg/dL Calcium (8.4-10.2) mg/dL Magnesium (1.6-2.3) mg/dL Ferritin (22.0-322.0) ng/mL Lactate Dehydrogenase (313-618) U/L C-Reactive Protein (<10.0) mg/L Total Protein (6.3-8.2) g/dL Albumin (3.5-5.0) g/dL Microbiology - Last 24 Hours (Table) 01/28/20 18:40 Blood Culture - Preliminary Blood No Growth after 72 hours Assessment and Plan Plan: Assessment: 1 Acute hypoxemic respiratory failure secondary to COVID 19 pneumonitis with underlying chronic interstitial fibrosis and COPD, started on Remdesivir on 01/30/2020 2 Prior history of heavy tobacco dependence 3 Diabetes mellitus 4 History of shingles 5 Hyperlipidemia 6 Hypertension Plan: Patient continues to require high flow oxygen, continue current medical treatment, Remdesivir, given 1 unit of convalescent plasma, his a d-dimer has increased, we will increase his Lovenox to 50 milligrams twice daily. Overall prognosis is guarded, will continue to follow. Follow inflammatory markers. I performed a history & physical examination of the patient and discussed their management with my nurse practitioner, Dorys Palm. I reviewed the nurse practitioner's note and agree with the documented findings and plan of care. Lung sounds are positive for diminished breath sounds. The findings and the impression was discussed with the patient. I attest to the documentation by the nurse practitioner. Time with Patient: Less than 30
[2020-02-01 16:35] LABS: Glucose,Whole Blood 125 mg/dL (75-99)
[2020-02-01 16:37] LABS: ABG PCO2 33 mmHg (35-45); ABG PH 7.44 (7.35-7.45); Allen Test Performed? Yes
[2020-02-01 16:38] LABS: ABG Base Excess -1.8 mmol/L; ABG HCO3 22 mmol/L (21-25); ABG PO2 49 mmHg (83-108); ABG TCO2 23 mmol/L (19-24)
[2020-02-01] MEDS: SODIUM CHLORIDE 0.9% 1,000 ML IV SCH (16:54)
--- NOTE | 2020-02-01 17:01 | XR ---
EXAMINATION TYPE: XR chest 1V portable DATE OF EXAM: 02/01/2020 COMPARISON: 01/31/2020. HISTORY: Follow-up shortness of breath. TECHNIQUE: Single frontal view of the chest is obtained. FINDINGS: There is increased bilateral diffuse marked patchy airspace opacities, most pronounced in the mid to lower lungs. No significant pleural effusion or pneumothorax. The cardiac silhouette size is stable. The osseous structures are intact. IMPRESSION: Worsening bilateral diffuse airspace disease.
[2020-02-01] MEDS: REMDESIVIR 100 MG in SODIUM CHLORIDE 0.9% 250 ML IVPB SCH (17:57)
[2020-02-01 20:25] LABS: Glucose,Whole Blood 136 mg/dL (75-99)
[2020-02-01] MEDS: ENOXAPARIN 60 MG/0.6 ML SYRINGE SQ SCH (22:31)
[2020-02-01] MEDS: MELATONIN 5 MG TABLET PO SCH (22:31)
[2020-02-01] MEDS: ATORVASTATIN 40 MG TAB PO SCH (22:31)
[2020-02-02] MEDS: ACETAMINOPHEN TAB 325 MG TAB PO PRN ×2 (01:07→13:31)
[2020-02-02 06:24] LABS: Glucose,Whole Blood 107 mg/dL (75-99)
[2020-02-02] MEDS: SODIUM CHLORIDE 0.9% 1,000 ML IV SCH ×2 (06:51→19:11)
[2020-02-02] MEDS: SYMBICORT 160-4.5 MCG INHALER INHALATION SCH ×2 (07:04→21:37)
[2020-02-02] MEDS: TIOTROPIUM 18 MCG/PUFF INHALER INHALATION SCH (07:05)
[2020-02-02] MEDS: ALBUTEROL HFA INHALER INHALATION PRN ×2 (07:05→15:51)
[2020-02-02] MEDS: INSULIN ASPART (NovoLOG) 100 UNIT/ML VIAL SQ SCH ×3 (07:43→18:34)
[2020-02-02] MEDS: ASPIRIN 81 MG PO SCH (08:40)
[2020-02-02] MEDS: FAMOTIDINE 20 MG TAB PO SCH (08:40)
[2020-02-02] MEDS: CHOLECALCIFEROL 1,000 UNIT TAB PO SCH (08:40)
[2020-02-02] MEDS: TAMSULOSIN 0.4 MG CAP.ER.24H PO SCH (08:40)
[2020-02-02] MEDS: ZINC SULFATE 220 MG CAP PO SCH (08:40)
[2020-02-02] MEDS: LOSARTAN 50 MG TAB PO SCH (08:40)
[2020-02-02] MEDS: dexAMETHasone 2 MG TAB PO SCH (08:40)
[2020-02-02] MEDS: ASCORBIC ACID 500 MG TAB PO SCH (08:40)
[2020-02-02] MEDS: FLUTICASONE 50MCG/SPRAY NASAL 16GM EA NOSTRIL SCH (08:41)
[2020-02-02] MEDS: ENOXAPARIN 60 MG/0.6 ML SYRINGE SQ SCH (08:41)
[2020-02-02 10:27] LABS: C Reactive Protein 134.5 mg/L (<10.0)
[2020-02-02 11:14] LABS: Glucose,Whole Blood 120 mg/dL (75-99)
[2020-02-02] MEDS: carBAMazepine 200 MG TAB PO SCH (12:21)
[2020-02-02 15:32] LABS: ABG Base Excess -1.6 mmol/L; ABG HCO3 23 mmol/L (21-25); ABG PCO2 34 mmHg (35-45); ABG PH 7.43 (7.35-7.45); ABG PO2 198 mmHg (83-108); ABG TCO2 24 mmol/L (19-24); Allen Test Performed? Yes
[2020-02-02 15:43] LABS: Basophils % (A) 1 %; Eosinophils % (A) 0 %; HCT 40.4 % (39.0-53.0); HGB 13.5 gm/dL (13.0-17.5); Lymphocytes # (A) 0.1 k/uL (1.0-4.8); Lymphocytes % (A) 2 %; MCH 28.5 pg (25.0-35.0); MCHC 33.4 g/dL (31.0-37.0); MCV 85.3 fL (80.0-100.0); Mean Platelet Volume 8.1; Monocytes # (A) 0.5 k/uL (0-1.0); Monocytes % (A) 8 %; Neutrophils % (A) 87 %; Platelet Count 264 k/uL (150-450); RBC 4.74 m/uL (4.30-5.90); RDW 13.4 % (11.5-15.5); WBC 5.8 k/uL (3.8-10.6)
[2020-02-02 15:54] LABS: ALT 31 U/L (4-49); AST 47 U/L (17-59); African American GFR (CKD) >90 (>60 ml/min/1.73 sqM); Albumin 2.2 g/dL (3.5-5.0); Alkaline Phosphatase 66 U/L (38-126); Anion Gap 2 mmol/L; Blood Urea Nitrogen 23 mg/dL (9-20); Calcium 8.2 mg/dL (8.4-10.2); Carbon Dioxide 23 mmol/L (22-30); Chloride 114 mmol/L (98-107); Glucose 121 mg/dL (74-99); Non-African American GFR(CKD) 88 (>60 ml/min/1.73 sqM); Potassium 4.2 mmol/L (3.5-5.1); Sodium 139 mmol/L (137-145); Total Bilirubin 0.7 mg/dL (0.2-1.3); Total Protein 4.9 g/dL (6.3-8.2)
[2020-02-02] MEDS: REMDESIVIR 100 MG in SODIUM CHLORIDE 0.9% 250 ML IVPB SCH (16:35)
[2020-02-02 17:00] LABS: Glucose,Whole Blood 108 mg/dL (75-99)
--- NOTE | 2020-02-02 17:14 | P.PN ---
Subjective Progress Note Date: 02/02/20 Principal diagnosis: Acute hypoxic respiratory failure related to COVID 19, chronic interstitial fibrosis and COPD The patient is seen today 01/30/2020 in follow-up on the selective care unit. He was brought into the emergency room yesterday via EMS with platelets of shortness of breath cough and congestion. He is a poor historian. His states they were both recently tested positive for COVID 19. His test was at least 7 days prior to his arrival. He does have a history of underlying COPD, hypertension, hyperlipidemia. He was quite hypoxemic on arrival. He is cur rently on AirVo at 60 L and 80% FiO2 to maintain O2 saturations in the 90s. CT angiogram ruled out pulmonary embolism. There is noted extensive pulmonary infiltrates consistent with pulmonary fibrosis and some superimposed mild pneumonia and atelectasis of the posterior lung bases. Pulmonary emphysema. He was initiated on Remdesivir yesterday. He is currently afebrile. White count 4.6. Hemoglobin 14.9. D-dimer 1.71. Sodium 138. Potassium 4.4. Creatinine 1.04. Ferritin 849. LDH 732. C-reactive protein 34. He remains on vitamin C, vitamin D, dexamethasone, melatonin, zinc, Lovenox. He is on bronchodilators. On 01/31/2020 patient seen in follow-up on the selective care unit, patient was found to be positive for COVID 19, this is a day two of Remdesivir, remains on high flow oxygen,via Airvo at 60 l/min, Fio2 81%, and pulse ox is 97-98%, he is confused, but appears to be in no acute respiratory distress, at times he has a congested cough, not bringing up much sputum, blood and was seen and is infusing at 75 ML per hour. T-max is 99.3F, hemodynamically stable, denies any chest pain, today's chest x-ray showing bilateral airspace disease, with a background of emphysematous changes. CRP is relatively stable, currently at 43.5, LDH is trending down, down to 697, calcitonin 0.11, damage decreasing, at 1.4. Blood culture is negative at the 48 hour jelani. Lymphopenia continues, with the lymphocyte count is 0.4, white count is 4.2, hemoglobin is 13.7. Denies any fe stacia or chills, no chest pain. No nausea or vomiting. On 02/01/2020 patient seen in follow-up on the selective care unit, patient was admitted with Covid 19 related to pneumonia, he continues on Remdesivir, today is day three. Still requiring high flow oxygen at 60 l/min, Fio2 84%, pulse ox of 91-93%. Continues to be febrile, low-grade fevers, with a T-max of 100.2F. Continues on bronchodilators, he is on Lovenox prophylactically, gentle IV hydration continues with 0.9 normal saline at a rate is 75 ML per hour. he continues on oral Decadron. Today d-dimer is 3.20, is increased from 1.2. On 02/02/2020 patient seen in follow-up on selective care unit, patient is Covid positive pneumonia, remains on high flow oxygen per Airvo at 81%, 60 L/m, in addition to 100% nonrebreather, with a pulse ox of 96%, patient has been febrile. Patient is very confused, his lethargic, he does arouse and respond, no unilateral weakness, patient is moving all 4 extremities, no facial asymmetry, no unilateral weakness. Patient has been self proning, he is very weak, continues on Remdesivir, he status post 1 unit of convalescent plasma, he is on oral Decadron, which we will switch to IV as the patient's mental status is more altered today. He is on Lovenox at 50 mg twice daily, his last d-dimer was yesterday with a value of 3.84. Remains lymphopenic, his lymphocyte count is down to 0.1, his CRP has actually went up to 134.5, LDH of 833. Patient is febrile, blood pressure is 114/65, status post labs were sent, blood cultures, urinalysis, urine culture, lactic acid, in view of patient's worsening status we will transfer the patient to the intensive care unit Objective - Vital Signs Vital signs: Vital Signs Temp 99.7 F H 02/02/20 15:21 Pulse 102 H 02/02/20 16:00 Resp 22 02/02/20 16:00 BP 114/65 02/02/20 15:21 Pulse Ox 93 L 02/02/20 15:53 Intake & Output 02/01/20 02/02/20 02/02/20 18:59 06:59 18:59 Intake Total 0 227 50 Output Total 1 Balance 0 227 49 Weight 105.5 kg Intake: Oral 0 50 Blood Product 227 Ffp Pher Conval Covid19 227 Acda 2 Unit [id number] Output: Urine 1 Other: Voiding Method Urinal Urinal Urinal Diaper Diaper # Voids 0 1 1 # Bowel Movements 0 0 - Exam GENERAL EXAM: Drowsy, confused, febrile 84-year-old white male, on high flow oxygen per Airvo at 60 l/min, in addition to 100% nonrebreather Fio2 81% of the pulse ox between 91%, does not appear to be in respiratory distress, however mentation is altered, patient is more drowsy and more confused on today's exam then yesterday HEAD: Normocephalic/atraumatic. EYES: Normal reaction of pupils, equal size. Conjunctiva pink, sclera white. NOSE: Clear with pink turbinates. THROAT: No erythema or exudates. NECK: No masses, no JVD, no thyroid enlargement, no adenopathy. CHEST: No chest wall deformity. Symmetrical expansion. LUNGS: Equal air entry with no crackles, wheeze, rhonchi or dullness. CVS: Regular rate and rhythm, normal S1 and S2, no gallops, no murmurs, no rubs ABDOMEN: Soft, nontender. No hepatosplenomegaly, normal bowel sounds, no guarding or rigidity. EXTREMITIES: No clubbing, no edema, no cyanosis, 2+ pulses and upper and lower extremities. MUSCULOSKELETAL: Muscle strength and tone normal. SPINE: No scoliosis or deformity SKIN: No rashes CENTRAL NERVOUS SYSTEM: Drowsy, confused No focal deficits, tone is normal in all 4 extremities. - Labs CBC & Chem 7: 02/02/20 15:21 02/02/20 15:21 Labs: Abnormal Lab Results - Last 24 Hours (Table) 02/01/20 02/01/20 02/02/20 Range/Units 16:32 20:24 06:22 Lymphocytes # (1.0-4.8) k/uL D-Dimer 3.84 H (<0.60) mg/L FEU ABG pCO2 (35-45) mmHg ABG pO2 (83-108) mmHg ABG O2 Saturation (94-97) % Chloride (98-107) mmol/L BUN (9-20) mg/dL Glucose (74-99) mg/dL POC Glucose (mg/dL) 136 H 107 H (75-99) mg/dL Calcium (8.4-10.2) mg/dL Lactate Dehydrogenase (313-618) U/L C-Reactive Protein (<10.0) mg/L Total Protein (6.3-8.2) g/dL Albumin (3.5-5.0) g/dL 02/02/20 02/02/20 02/02/20 Range/Units 07:41 11:09 15:17 Lymphocytes # (1.0-4.8) k/uL D-Dimer (<0.60) mg/L FEU ABG pCO2 34 L (35-45) mmHg ABG pO2 198 H (83-108) mmHg ABG O2 Saturation 100.0 H (94-97) % Chloride (98-107) mmol/L BUN (9-20) mg/dL Glucose (74-99) mg/dL POC Glucose (mg/dL) 120 H (75-99) mg/dL Calcium (8.4-10.2) mg/dL Lactate Dehydrogenase 833 H (313-618) U/L C-Reactive Protein 134.5 H (<10.0) mg/L Total Protein (6.3-8.2) g/dL Albumin (3.5-5.0) g/dL 02/02/20 02/02/20 Range/Units 15:21 15:21 Lymphocytes # 0.1 L (1.0-4.8) k/uL D-Dimer (<0.60) mg/L FEU ABG pCO2 (35-45) mmHg ABG pO2 (83-108) mmHg ABG O2 Saturation (94-97) % Chloride 114 H (98-107) mmol/L BUN 23 H (9-20) mg/dL Glucose 121 H (74-99) mg/dL POC Glucose (mg/dL) (75-99) mg/dL Calcium 8.2 L (8.4-10.2) mg/dL Lactate Dehydrogenase (313-618) U/L C-Reactive Protein (<10.0) mg/L Total Protein 4.9 L (6.3-8.2) g/dL Albumin 2.2 L (3.5-5.0) g/dL Microbiology - Last 24 Hours (Table) 01/28/20 18:40 Blood Culture - Preliminary Blood No Growth after 96 hours Assessment and Plan Plan: Assessment: #1. Acute hypoxemic respiratory failure secondary to COVID 19 pneumonitis with underlying chronic interstitial fibrosis and COPD, started on Remdesivir on 01/30/2020, status post transfusion with 1 unit of convalescent plasma on 02/01/2020 #2. Altered mental status, likely related to metabolic encephalopathy, related to severe hypoxemia, fever, related to acute Covid 19 pneumonia #3. Elevated inflammatory markers, increased d-dimer related to acute Covid 19 related infection, that have actually trended up during his admission #4. Prior history of heavy tobacco dependence #5. Diabetes mellitus #6. History of shingles #7. Hyperlipidemia #8. Hypertension Plan: Blood gases have been reviewed, oxygenation seems to have improved according to the blood gas, but this was done on 100% FiO2, overall clinically he seems to be doing worse, his mentation is worse, he is very confused, drowsy, he is afebrile, his inflammatory markers have actually increased. Continue with Remdesivir, he status post transfusion with 1 unit of convalescent plasma, we'll switch his Decadron from oral to IV. Continue IV fluids, procalcitonin, blood cultures, urinalysis, urine culture was sent have been sent. Transfer to the ICU is pending, prognosis is very guarded. I performed a history & physical examination of the patient and discussed their management with my nurse practitioner, Dorys Palm. I reviewed the nurse practitioner's note and agree with the documented findings and plan of care. Lung sounds are positive for diminished breath sounds. The findings and the impression was discussed with the patient. I attest to the documentation by the nurse practitioner. Time with Patient: Less than 30
[2020-02-02 17:24] LABS: Glucose,Whole Blood 111 mg/dL (75-99)
[2020-02-02 18:42] LABS: Appearance,Urine Clear (Clear); Bilirubin,Urine Negative (Negative); Blood,Urine Small (Negative); Color,Urine Yellow; Glucose,Urine (UA) Negative (Negative); Ketones,Urine Trace (Negative); Leukocyte Esterase,Urine Negative (Negative); Mucus,Urine Occasional /hpf; Nitrite,Urine Negative (Negative); Protein,Urine 1+ (Negative); RBC,Urine 31 /hpf (0-5); Specific Gravity,Urine 1.029 (1.001-1.035); Urobilinogen,Urine <2.0 mg/dL (<2.0); WBC,Urine 1 /hpf (0-5)
--- NOTE | 2020-02-02 18:55 | P.PN ---
Subjective Progress Note Date: 02/02/20 (delayed charting seen at 0945) Principal diagnosis: shortness of breath Patient is an 84-year-old male for history of COPD not requiring oxygen therapy, diabetes, and shingles who presented to the emergency department with complaints of worsening dyspnea. He was diagnosed with coated 5 days prior to admission. He has been taking Zithromax and a Medrol Dosepak. On arrival to the ER he was febrile with a temperature of 101.3, pulse 104, O2 saturation 82% on room air. Laboratory analysis demonstrated lymphopenia, d-dimer of 2, sodium 131 on a BUN 34, creatinine 1.14, ferritin 1128, LDH 849, CRP 42, pro- calcitonin 0.11. Chest x-ray demonstrated pulmonary interstitial fibrosis with bilateral interstitial infiltrates. CT of the chest showed extensive pulmonary infiltrates consistent with pulmonary fibrosis and some superimposed pneumonia and atelectasis, no evidence of pulmonary embolism. Arrangements were made for admission for coated 19 pneumonitis. He was started on IV fluids, Lovenox, and dexamethasone. He was admitted to the selective care unit. He was requiring AirVo. Pulmonary was consulted. He was started on zinc, vitamin C, vitamin D, and melatonin. After being seen by pulmonary who was started on Remdesivir. He continued to require AirVo through the morning of 01/29. His breathing worsened and he required a non -rebreather on top of a AirVO. He was seen by pulmonary and transferred to ICU on 02/01. He became very rigid. Patient seen and examined at bedside. Very confused. Denying shortness of breath. General: ill appearing, moderate distress, appears at stated age Derm: warm, dry Head: atraumatic, normocephalic, symmetric Eyes: EOMI, no lid lag, anicteric sclera Mouth: no lip lesion, mucus membranes moist Cardiovascular: S1 and S2 tachycardic, no murmur, positive posterior tibial pulse bilateral, Lungs: ronchi bilateral, 3 word conversational dyspnea, + sternal retractions Abdominal: soft, nontender to palpation, no guarding, no appreciable organomegaly Ext: no gross muscle atrophy, no edema, no contractures Neuro: CN II-XI grossly intact, no focal neuro deficits Psych: Alert to self, still the delayed thinking. Appropriate affect COVID 19 pneumonitis with acute hypoxic respiratory failure -Dexamethasone, zinc, vitamin C, vitamin D, Pepcid, melatonin -Pulmonary recommendations:Remedesivir, s/p convalesent plasma 01/31 -IV fluids -Follow COVID markers -Follow chest x-ray -Wean O2 as able Rigidity - Check CPK - Hold tegretol (on for bipolar depression per ). - neuro consult - Hold off on imaging at this time with COVID. COPD without acute exacerbation -Continue with albuterol, Spiriva, and Symbicort -Pulmonary recommendations -Pulmonary hygiene Metabolic encephalopathy -Supportive care -Frequent reorientation Diabetes mellitus type 2 -Metformin on hold -Sliding-scale insulin -Follow blood sugars -Hemoglobin A1c 6.6 Urinary retention with penile implant - flomax - improved on repeat bladder scan - Urology recs appreciated Dyslipidemia -Statin therapy Hypertension -Continue with Cozaar, hold hydrochlorothiazide -Follow blood pressures Not awake enough to eat. No meds per now Prognosis Guarded. Worsening. Updated Meri over the phone. DVT prophylaxis: lovenox Discussed with: Patient, nursing Anticipated discharge: 6-[address]: A total of 35 minutes was spent on the care of this complex patient more than 50% of the time was spent in counseling and care coordination. Objective - Vital Signs Vital signs: Vital Signs Temp 99.7 F H 02/02/20 15:21 Pulse 102 H 02/02/20 16:00 Resp 22 02/02/20 16:00 BP 114/65 02/02/20 15:21 Pulse Ox 93 L 02/02/20 15:53 Intake & Output 02/01/20 02/02/20 02/02/20 18:59 06:59 18:59 Intake Total 0 227 50 Output Total 1 Balance 0 227 49 Weight 105.5 kg Intake: Oral 0 50 Blood Product 227 Ffp Pher Conval Covid19 227 Acda 2 Unit [id number] Output: Urine 1 Other: Voiding Method Urinal Urinal Urinal Diaper Diaper # Voids 0 1 1 # Bowel Movements 0 0 - Labs CBC & Chem 7: 02/02/20 15:21 02/02/20 15:21 Labs: Abnormal Lab Results - Last 24 Hours (Table) 02/01/20 02/02/20 02/02/20 Range/Units 20:24 06:22 07:41 Lymphocytes # (1.0-4.8) k/uL ABG pCO2 (35-45) mmHg ABG pO2 (83-108) mmHg ABG O2 Saturation (94-97) % Chloride (98-107) mmol/L BUN (9-20) mg/dL Glucose (74-99) mg/dL POC Glucose (mg/dL) 136 H 107 H (75-99) mg/dL Calcium (8.4-10.2) mg/dL Lactate Dehydrogenase 833 H (313-618) U/L C-Reactive Protein 134.5 H (<10.0) mg/L Total Protein (6.3-8.2) g/dL Albumin (3.5-5.0) g/dL 02/02/20 02/02/20 02/02/20 Range/Units 11:09 15:17 15:21 Lymphocytes # (1.0-4.8) k/uL ABG pCO2 34 L (35-45) mmHg ABG pO2 198 H (83-108) mmHg ABG O2 Saturation 100.0 H (94-97) % Chloride 114 H (98-107) mmol/L BUN 23 H (9-20) mg/dL Glucose 121 H (74-99) mg/dL POC Glucose (mg/dL) 120 H (75-99) mg/dL Calcium 8.2 L (8.4-10.2) mg/dL Lactate Dehydrogenase (313-618) U/L C-Reactive Protein (<10.0) mg/L Total Protein 4.9 L (6.3-8.2) g/dL Albumin 2.2 L (3.5-5.0) g/dL 02/02/20 02/02/20 02/02/20 Range/Units 15:21 16:54 17:22 Lymphocytes # 0.1 L (1.0-4.8) k/uL ABG pCO2 (35-45) mmHg ABG pO2 (83-108) mmHg ABG O2 Saturation (94-97) % Chloride (98-107) mmol/L BUN (9-20) mg/dL Glucose (74-99) mg/dL POC Glucose (mg/dL) 108 H 111 H (75-99) mg/dL Calcium (8.4-10.2) mg/dL Lactate Dehydrogenase (313-618) U/L C-Reactive Protein (<10.0) mg/L Total Protein (6.3-8.2) g/dL Albumin (3.5-5.0) g/dL Microbiology - Last 24 Hours (Table) 01/28/20 18:40 Blood Culture - Preliminary Blood No Growth after 96 hours
--- NOTE | 2020-02-02 19:01 | P.PN ---
Progress Note - Text Progress Note Date: 02/02/20 Advance Care Planning: DX: COVID 19 Discussed with: Meri over the phone Discussion: Lived a good and long life. If he has no hope of meaningful recovery she would not want him to keep going. She would like to give him the chance to recover on the Vent. However, if his heart were to stop we will let him go in peace and respect his amazing life. We will do everything up to the point. Should things worsen she will reconsider intubation. A total of 20 minutes was spent discussing with his Meri over the phone.
[2020-02-02 20:10] LABS: Carbamazepine (Tegretol) 4.5 ug/mL
[2020-02-02] MEDS: DILTIAZEM 125 MG in SODIUM CHLORIDE 0.9% 100 ML IV SCH (21:52)
[2020-02-02] MEDS: ATORVASTATIN 40 MG TAB PO SCH (22:10)
[2020-02-02] MEDS: MELATONIN 5 MG TABLET PO SCH (22:10)
[2020-02-02] MEDS: FAMOTIDINE 20 MG/2 ML VIAL IV SCH (22:11)
[2020-02-02] MEDS: DEXAMETHASONE SOD PHOSPHATE 10 MG/ML 1 ML VIAL IV SCH (22:11)
[2020-02-02 22:30] LABS: Glucose,Whole Blood 86 mg/dL (75-99)
[2020-02-02 23:53] LABS: Glucose,Whole Blood 102 mg/dL (75-99)
[2020-02-03] MEDS: ENOXAPARIN 60 MG/0.6 ML SYRINGE SQ SCH ×2 (00:15→13:29)
[2020-02-03 00:26] LABS: Glucose,Whole Blood 104 mg/dL (75-99)
[2020-02-03] MEDS: INSULIN ASPART (NovoLOG) 100 UNIT/ML VIAL SQ SCH ×4 (01:36→18:32)
[2020-02-03 04:52] LABS: Basophils % (A) 0 %; Eosinophils % (A) 0 %; HCT 42.2 % (39.0-53.0); HGB 14.1 gm/dL (13.0-17.5); Lymphocytes # (A) 0.2 k/uL (1.0-4.8); Lymphocytes % (A) 3 %; MCH 28.5 pg (25.0-35.0); MCHC 33.4 g/dL (31.0-37.0); MCV 85.4 fL (80.0-100.0); Mean Platelet Volume 7.6; Monocytes # (A) 0.5 k/uL (0-1.0); Monocytes % (A) 6 %; Neutrophils # (A) 6.4 k/uL (1.3-7.7); Neutrophils % (A) 90 %; Platelet Count 297 k/uL (150-450); RBC 4.94 m/uL (4.30-5.90); RDW 13.4 % (11.5-15.5); WBC 7.1 k/uL (3.8-10.6)
[2020-02-03 05:13] LABS: ALT 31 U/L (4-49); AST 43 U/L (17-59); African American GFR (CKD) >90 (>60 ml/min/1.73 sqM); Albumin 2.3 g/dL (3.5-5.0); Alkaline Phosphatase 75 U/L (38-126); Anion Gap 5 mmol/L; Blood Urea Nitrogen 22 mg/dL (9-20); Calcium 8.5 mg/dL (8.4-10.2); Carbon Dioxide 21 mmol/L (22-30); Chloride 114 mmol/L (98-107); Glucose 113 mg/dL (74-99); Non-African American GFR(CKD) 87 (>60 ml/min/1.73 sqM); Potassium 4.5 mmol/L (3.5-5.1); Sodium 140 mmol/L (137-145); Total Bilirubin 0.8 mg/dL (0.2-1.3); Total Protein 5.2 g/dL (6.3-8.2)
[2020-02-03 05:32] LABS: C Reactive Protein 161.8 mg/L (<10.0)
[2020-02-03 06:08] LABS: Glucose,Whole Blood 99 mg/dL (75-99)
--- NOTE | 2020-02-03 07:21 | XR ---
EXAMINATION TYPE: XR chest 1V portable DATE OF EXAM: 02/03/2020 COMPARISON: Prior chest x-ray 02/01/2020 HISTORY: Pneumonia TECHNIQUE: Single frontal view of the chest is obtained. FINDINGS: Bilateral airspace disease is present. No evident pneumothorax. Heart is likely stable. No sizable effusion evident. The aorta is dense. IMPRESSION: Findings consistent with bilateral pneumonia.
[2020-02-03] MEDS: TIOTROPIUM 18 MCG/PUFF INHALER INHALATION SCH (08:04)
[2020-02-03] MEDS: SYMBICORT 160-4.5 MCG INHALER INHALATION SCH ×2 (08:04→19:28)
[2020-02-03] MEDS: TAMSULOSIN 0.4 MG CAP.ER.24H PO SCH (08:32)
[2020-02-03] MEDS: ASPIRIN 81 MG PO SCH (08:32)
[2020-02-03] MEDS: ASCORBIC ACID 500 MG TAB PO SCH (08:32)
[2020-02-03] MEDS: CHOLECALCIFEROL 1,000 UNIT TAB PO SCH (08:32)
[2020-02-03] MEDS: LOSARTAN 50 MG TAB PO SCH (08:33)
[2020-02-03] MEDS: ZINC SULFATE 220 MG CAP PO SCH (08:33)
[2020-02-03] MEDS ORDERED: SODIUM CHLORIDE 0.9% 1,000 ML IV ONE (08:49)
[2020-02-03] MEDS: DEXAMETHASONE SOD PHOSPHATE 10 MG/ML 1 ML VIAL IV SCH (09:28)
[2020-02-03] MEDS: FAMOTIDINE 20 MG/2 ML VIAL IV SCH ×2 (09:28→19:47)
[2020-02-03] MEDS: FLUTICASONE 50MCG/SPRAY NASAL 16GM EA NOSTRIL SCH (09:28)
[2020-02-03] MEDS: SODIUM CHLORIDE 0.9% 1,000 ML IV SCH (09:28)
[2020-02-03] MEDS: DILTIAZEM 125 MG in SODIUM CHLORIDE 0.9% 100 ML IV SCH ×2 (09:29→20:18)
[2020-02-03 09:38] LABS: Ferritin 703.5 ng/mL (22.0-322.0)
[2020-02-03] MEDS ORDERED: HALOPERIDOL LACTATE 5 MG/ML 1 ML VIAL ONE (10:33)
--- NOTE | 2020-02-03 11:10 | XR ---
EXAMINATION TYPE: XR chest 1V confirm line [facility] DATE OF EXAM: 02/03/2020 COMPARISON: Chest x-ray 02/03/2020 at earlier time HISTORY: Status post central venous catheter placement TECHNIQUE: Single frontal view of the chest is obtained. FINDINGS: There is been interval placement of a left jugular central venous catheter, distal tip is overlying the superior vena cava. No evident pneumothorax, no other interval change. IMPRESSION: No evident complication status post central venous catheter placement
[2020-02-03 11:12] VITALS: BMI 29.2
[2020-02-03 11:13] LABS: Glucose,Whole Blood 102 mg/dL (75-99)
--- NOTE | 2020-02-03 13:08 | P.PN ---
Subjective Progress Note Date: 02/03/20 Principal diagnosis: SOB Patient is an 84-year-old male for history of COPD not requiring oxygen therapy, diabetes, and shingles who presented to the emergency department with complaints of worsening dyspnea. He was diagnosed with coated 5 days prior to admission. He has been taking Zithromax and a Medrol Dosepak. On arrival to the ER he was febrile with a temperature of 101.3, pulse 104, O2 saturation 82% on room air. Laboratory analysis demonstrated lymphopenia, d-dimer of 2, sodium 131 on a BUN 34, creatinine 1.14, ferritin 1128, LDH 849, CRP 42, pro-jessee citonin 0.11. Chest x-ray demonstrated pulmonary interstitial fibrosis with bilateral interstitial infiltrates. CT of the chest showed extensive pulmonary infiltrates consistent with pulmonary fibrosis and some superimposed pneumonia and atelectasis, no evidence of pulmonary embolism. Arrangements were made for admission for coated 19 pneumonitis. He was started on IV fluids, Lovenox, and dexamethasone. He was admitted to the selective care unit. He was requiring AirVo. Pulmonary was consulted. He was started on zinc, vitamin C, vitamin D, and melatonin. After being seen by pulmonary who was started on Remdesivir. His breathing worsened and he required a non -rebreather on top of a AirVO. He was seen by pulmonary and transferred to ICU on 02/01. Nursing reported stiffness and some shaking movements prior to the transfer. Also on the day of the transfer he was found in a-fib with RVR with HR in the 130s-140s. He was started on cardizem gtt. 02/02: Still confused, unable to answer questions coherently. On Airvo @60L and 81% Fi02, satting 93%. HR improved. Objective - Vital Signs Vital signs: Vital Signs Temp 98.5 F 02/03/20 04:00 Pulse 73 02/03/20 07:00 Resp 15 02/03/20 07:00 BP 103/63 02/03/20 07:00 Pulse Ox 90 L 02/03/20 11:22 Intake & Output 02/02/20 02/03/20 02/03/20 18:59 06:59 18:59 Intake Total 200 825 191.167 Output Total 251 795 60 Balance -51 30 131.167 Weight 109.1 kg 109.1 kg Intake: IV 150 825 75 Sodium Chloride 0.9% 1, 150 825 75 000 ml @ 75 mls/hr IV . [id number] [facility] Rx#:[id number] Intake, IV Titration 116.167 Amount Diltiazem 125 mg In 116.167 Sodium Chloride 0.9% 100 ml @ 10 MG/HR 10 mls/hr IV .[id number] [facility] Rx#: [id number] Oral 50 Output: Urine 251 795 60 Other: Voiding Method Urinal Indwelling Catheter Diaper # Voids 1 # Bowel Movements 0 - Exam General: ill appearing, moderate distress, appears at stated age Derm: warm, dry Head: atraumatic, normocephalic, symmetric Eyes: EOMI, no lid lag, anicteric sclera Mouth: no lip lesion, mucus membranes moist Cardiovascular: S1 and S2 tachycardic, no murmur, positive posterior tibial pulse bilateral, Lungs: ronchi bilateral Abdominal: soft, nontender to palpation, no guarding, no appreciable organomegaly Ext: no gross muscle atrophy, no edema, no contractures Neuro: CN II-XI grossly intact, no focal neuro deficits Psych: Alert to self, confused. - Labs CBC & Chem 7: 02/03/20 04:12 02/03/20 04:12 Labs: Abnormal Lab Results - Last 24 Hours (Table) 02/02/20 02/02/20 02/02/20 Range/Units 15:17 15:21 15:21 Lymphocytes # 0.1 L (1.0-4.8) k/uL D-Dimer (<0.60) mg/L FEU ABG pCO2 34 L (35-45) mmHg ABG pO2 198 H (83-108) mmHg ABG O2 Saturation 100.0 H (94-97) % Chloride 114 H (98-107) mmol/L Carbon Dioxide (22-30) mmol/L BUN 23 H (9-20) mg/dL Glucose 121 H (74-99) mg/dL POC Glucose (mg/dL) (75-99) mg/dL Calcium 8.2 L (8.4-10.2) mg/dL Ferritin (22.0-322.0) ng/mL C-Reactive Protein (<10.0) mg/L Total Protein 4.9 L (6.3-8.2) g/dL Albumin 2.2 L (3.5-5.0) g/dL Procalcitonin (0.02-0.09) ng/mL Urine Protein (Negative) Urine Ketones (Negative) Urine Blood (Negative) Urine RBC (0-5) /hpf Urine Mucus (None) /hpf 02/02/20 02/02/20 02/02/20 Range/Units 15:21 16:54 17:22 Lymphocytes # (1.0-4.8) k/uL D-Dimer (<0.60) mg/L FEU ABG pCO2 (35-45) mmHg ABG pO2 (83-108) mmHg ABG O2 Saturation (94-97) % Chloride (98-107) mmol/L Carbon Dioxide (22-30) mmol/L BUN (9-20) mg/dL Glucose (74-99) mg/dL POC Glucose (mg/dL) 108 H 111 H (75-99) mg/dL Calcium (8.4-10.2) mg/dL Ferritin (22.0-322.0) ng/mL C-Reactive Protein (<10.0) mg/L Total Protein (6.3-8.2) g/dL Albumin (3.5-5.0) g/dL Procalcitonin 0.11 H (0.02-0.09) ng/mL Urine Protein (Negative) Urine Ketones (Negative) Urine Blood (Negative) Urine RBC (0-5) /hpf Urine Mucus (None) /hpf 02/02/20 02/02/20 02/03/20 Range/Units 18:31 23:52 00:24 Lymphocytes # (1.0-4.8) k/uL D-Dimer (<0.60) mg/L FEU ABG pCO2 (35-45) mmHg ABG pO2 (83-108) mmHg ABG O2 Saturation (94-97) % Chloride (98-107) mmol/L Carbon Dioxide (22-30) mmol/L BUN (9-20) mg/dL Glucose (74-99) mg/dL POC Glucose (mg/dL) 102 H 104 H (75-99) mg/dL Calcium (8.4-10.2) mg/dL Ferritin (22.0-322.0) ng/mL C-Reactive Protein (<10.0) mg/L Total Protein (6.3-8.2) g/dL Albumin (3.5-5.0) g/dL Procalcitonin (0.02-0.09) ng/mL Urine Protein 1+ H (Negative) Urine Ketones Trace H (Negative) Urine Blood Small H (Negative) Urine RBC 31 H (0-5) /hpf Urine Mucus Occasional H (None) /hpf 02/03/20 02/03/20 02/03/20 Range/Units 04:12 04:12 04:12 Lymphocytes # 0.2 L (1.0-4.8) k/uL D-Dimer 7.19 H (<0.60) mg/L FEU ABG pCO2 (35-45) mmHg ABG pO2 (83-108) mmHg ABG O2 Saturation (94-97) % Chloride 114 H (98-107) mmol/L Carbon Dioxide 21 L (22-30) mmol/L BUN 22 H (9-20) mg/dL Glucose 113 H (74-99) mg/dL POC Glucose (mg/dL) (75-99) mg/dL Calcium (8.4-10.2) mg/dL Ferritin 703.5 H (22.0-322.0) ng/mL C-Reactive Protein 161.8 H (<10.0) mg/L Total Protein 5.2 L (6.3-8.2) g/dL Albumin 2.3 L (3.5-5.0) g/dL Procalcitonin (0.02-0.09) ng/mL Urine Protein (Negative) Urine Ketones (Negative) Urine Blood (Negative) Urine RBC (0-5) /hpf Urine Mucus (None) /hpf 02/03/20 Range/Units 11:12 Lymphocytes # (1.0-4.8) k/uL D-Dimer (<0.60) mg/L FEU ABG pCO2 (35-45) mmHg ABG pO2 (83-108) mmHg ABG O2 Saturation (94-97) % Chloride (98-107) mmol/L Carbon Dioxide (22-30) mmol/L BUN (9-20) mg/dL Glucose (74-99) mg/dL POC Glucose (mg/dL) 102 H (75-99) mg/dL Calcium (8.4-10.2) mg/dL Ferritin (22.0-322.0) ng/mL C-Reactive Protein (<10.0) mg/L Total Protein (6.3-8.2) g/dL Albumin (3.5-5.0) g/dL Procalcitonin (0.02-0.09) ng/mL Urine Protein (Negative) Urine Ketones (Negative) Urine Blood (Negative) Urine RBC (0-5) /hpf Urine Mucus (None) /hpf Microbiology - Last 24 Hours (Table) 01/28/20 18:40 Blood Culture - Preliminary Blood No Growth after 120 hours Assessment and Plan Plan: COVID 19 pneumonitis with acute hypoxic respiratory failure -Dexamethasone, zinc, vitamin C, vitamin D, Pepcid, melatonin -Pulmonary recommendations: Remedesivir, s/p convalesent plasma 01/31 -IV fluids -Follow COVID markers -Follow chest x-ray -Wean O2 as able Rigidity - Resolved - CPK ok - Hold tegretol (on for bipolar depression per ). - neuro consult COPD without acute exacerbation -Continue with albuterol, Spiriva, and Symbicort -Pulmonary recommendations -Pulmonary hygiene Metabolic encephalopathy -Supportive care -Frequent reorientation Diabetes mellitus type 2 -Metformin on hold -Sliding-scale insulin -Follow blood sugars -Hemoglobin A1c 6.6 Urinary retention with penile implant -Flomax Dyslipidemia -Statin therapy Hypertension -Continue with Cozaar, hold hydrochlorothiazide -Follow blood pressures Prognosis Guarded. DVT prophylaxis: lovenox bid Discussed with: Patient, nursing Anticipated discharge: 6-[address]: Too early to tell A total of 35 minutes was spent on the care of this complex patient more than 50% of the time was spent in counseling and care coordination.
--- NOTE | 2020-02-03 15:30 | P.PN ---
Subjective Progress Note Date: 02/03/20 The patient is seen today 01/30/2020 in follow-up on the selective care unit. He was brought into the emergency room yesterday via EMS with platelets of shortness of breath cough and congestion. He is a poor historian. His states they were both recently tested positive for COVID 19. His test was at least 7 days prior to his arrival. He does have a history of underlying COPD, hypertension, hyperlipidemia. He was quite hypoxemic on arrival. He is currently on AirVo at 60 L and 80% FiO2 to maintain O2 saturations in the 90s. CT angiogram ruled out pulmonary embolism. There is noted extensive pulmonary infiltrates consistent with pulmonary fibrosis and some superimposed mild pneumonia and atelectasis of the posterior lung bases. Pulmonary emphysema. He was initiated on Remdesivir yesterday. He is currently afebrile. White count 4.6. Hemoglobin 14.9. D-dimer 1.71. Sodium 138. Potassium 4.4. Creatinine 1.04. Ferritin 849. LDH 732. C-reactive protein 34. He remains on vitamin C, vitamin D, dexamethasone, melatonin, zinc, Lovenox. He is on bronchodilators. On 01/31/2020 patient seen in follow-up on the selective care unit, patient was found to be positive for COVID 19, this is a day two of Remdesivir, remains on high flow oxygen,via Airvo at 60 l/min, Fio2 81%, and pulse ox is 97-98%, he is confused, but appears to be in no acute respiratory distress, at times he has a congested cough, not bringing up much sputum, blood and was seen and is infusing at 75 ML per hour. T-max is 99.3F, hemodynamically stable, denies any chest pain, today's chest x-ray showing bilateral airspace disease, with a background of emphysematous changes. CRP is relatively stable, currently at 43.5, LDH is trending down, down to 697, calcitonin 0.11, damage decreasing, at 1.4. Blood culture is negative at the 48 hour jelani. Lymphopenia continues, with the lymphocyte count is 0.4, white count is 4.2, hemoglobin is 13.7. Denies any fever or chills, no chest pain. No nausea or vomiting. On 02/01/2020 patient seen in follow-up on the selective care unit, patient was admitted with Covid 19 related to pneumonia, he continues on Remdesivir, today is day three. Still requiring high flow oxygen at 60 l/min, Fio2 84%, pulse ox of 91-93%. Continues to be febrile, low-grade fevers, with a T-max of 100.2F. Continues on bronchodilators, he is on Lovenox prophylactically, gentle IV hydration continues with 0.9 normal saline at a rate is 75 ML per hour. he continues on oral Decadron. Today d-dimer is 3.20, is increased from 1.2. On 02/02/2020 patient seen in follow-up on selective care unit, patient is Covid positive pneumonia, remains on high flow oxygen per Airvo at 81%, 60 L/m, in addition to 100% nonrebreather, with a pulse ox of 96%, patient has been febrile . Patient is very confused, his lethargic, he does arouse and respond, no unilateral weakness, patient is moving all 4 extremities, no facial asymmetry, no unilateral weakness. Patient has been self proning, he is very weak, continues on Remdesivir, he status post 1 unit of convalescent plasma, he is on oral Decadron, which we will switch to IV as the patient's mental status is more altered today. He is on Lovenox at 50 mg twice daily, his last d-dimer was yesterday with a value of 3.84. Remains lymphopenic, his lymphocyte count is down to 0.1, his CRP has actually went up to 134.5, LDH of 833. Patient is febrile, blood pressure is 114/65, status post labs were sent, blood cultures, urinalysis, urine culture, lactic acid, in view of patient's worsening status we will transfer the patient to the intensive care unit On 02/03/2020, the patient is currently in the intensive care unit. The patient is currently struggling from coronavirus Covid 19 related pneumonia. He remains quite confused and lethargic. At times agitated. At times he moans. He is able to sometimes say his name. However, not following any commands and he is unable to hold a conversation at this point in time. The patient is currently on 100% nonrebreather facemask and the patient is also on high flow oxygen 60 L per minute with an FiO2 of 80% with a pulse ox of 92%. Chest x-ray shows dense bilateral pulmonary infiltrates most on the left. The triple-lumen catheter was essentially his left IJ today. IV fluids are running at 75 mL an hour. He remains in atrial fibrillation. Cardizem drip is running at 10 mg an hour. He is afebrile. I was quite concerned about his altered mentation. Exact reason for that is not clear. Could be viral induced. I have consulted neurology in this regard. Unable to do the CAT scan as the patient is quite unstable and restless to be taken to a CAT scan machine for further investigation. Would like to get a neurology input at this point in time. His blood work shows a white cell count 7.1. His d-dimer is at 7.1. His ferritin level is at 7 was 3. CRP is at 161. The rest of the electrodes are all within normal limits. For now, the patient is still being treated with a combination of Decadron and he received a unit of convalescent plasma and he completed his course of Remdesivir yesterday. His Tegretol level is at 4.5. He is also on Lovenox at a dose of 50 mg subcu every 12 hours. I'm going to increase in creatinine therapy dose of Levaquin especially with his underlying atrial fibrillation. Objective - Vital Signs Vital signs: Vital Signs Temp 99.0 F 02/03/20 12:00 Pulse 91 02/03/20 12:00 Resp 28 H 02/03/20 12:00 BP 142/86 02/03/20 12:00 Pulse Ox 92 L 02/03/20 12:00 Intake & Output 02/02/20 02/03/20 02/03/20 18:59 06:59 18:59 Intake Total 632 984 3042.167 Output Total 251 795 340 Balance -51 30 1301.167 Weight 109.1 kg 109.1 kg Intake: IV 237 786 0203 Sodium Chloride 0.9% 1, 150 825 525 000 ml @ 75 mls/hr IV . [id number] [facility] Rx#:[id number] Sodium Chloride 0.9% 1, 1000 000 ml @ 999 mls/hr IV . Q1H1M ONE Rx#:[id number] Intake, IV Titration 116.167 Amount Diltiazem 125 mg In 116.167 Sodium Chloride 0.9% 100 ml @ 10 MG/HR 10 mls/hr IV .[id number] [facility] Rx#: [id number] Oral 50 Output: Urine 251 795 340 Other: Voiding Method Urinal Indwelling Catheter Diaper # Voids 1 # Bowel Movements 0 - Exam GENERAL EXAM: Drowsy, confused, febrile 84-year-old white male, on high flow oxygen per Airvo at 60 l/min, in addition to 100% nonrebreather Fio2 81% of the pulse ox between 91%, does not appear to be in respiratory distress, however mentation is altered, patient is more drowsy and more confused on today's exam then yesterday HEAD: Normocephalic/atraumatic. EYES: Normal reaction of pupils, equal size. Conjunctiva pink, sclera white. NOSE: Clear with pink turbinates. THROAT: No erythema or exudates. NECK: No masses, no JVD, no thyroid enlargement, no adenopathy. CHEST: No chest wall deformity. Symmetrical expansion. LUNGS: Equal air entry with no crackles, wheeze, rhonchi or dullness. CVS: Regular rate and rhythm, normal S1 and S2, no gallops, no murmurs, no rubs ABDOMEN: Soft, nontender. No hepatosplenomegaly, normal bowel sounds, no guarding or rigidity. EXTREMITIES: No clubbing, no edema, no cyanosis, 2+ pulses and upper and lower extremities. MUSCULOSKELETAL: Muscle strength and tone normal. SPINE: No scoliosis or deformity SKIN: No rashes CENTRAL NERVOUS SYSTEM: Drowsy, confused No focal deficits, tone is normal in all 4 extremities. The patient's speech is garbled. Is encephalopathic. He is unable to follow any commands. He senses painful stimulation and he withdraws and he gets agitated quite easily and he moans. No seizure activity has been noted. His neck is not stiff. - Labs CBC & Chem 7: 02/03/20 04:12 02/03/20 04:12 Labs: Abnormal Lab Results - Last 24 Hours (Table) 02/02/20 02/02/20 02/02/20 Range/Units 15:17 15:21 15:21 Lymphocytes # 0.1 L (1.0-4.8) k/uL D-Dimer (<0.60) mg/L FEU ABG pCO2 34 L (35-45) mmHg ABG pO2 198 H (83-108) mmHg ABG O2 Saturation 100.0 H (94-97) % Chloride 114 H (98-107) mmol/L Carbon Dioxide (22-30) mmol/L BUN 23 H (9-20) mg/dL Glucose 121 H (74-99) mg/dL POC Glucose (mg/dL) (75-99) mg/dL Calcium 8.2 L (8.4-10.2) mg/dL Ferritin (22.0-322.0) ng/mL C-Reactive Protein (<10.0) mg/L Total Protein 4.9 L (6.3-8.2) g/dL Albumin 2.2 L (3.5-5.0) g/dL Procalcitonin (0.02-0.09) ng/mL Urine Protein (Negative) Urine Ketones (Negative) Urine Blood (Negative) Urine RBC (0-5) /hpf Urine Mucus (None) /hpf 02/02/20 02/02/20 02/02/20 Range/Units 15:21 16:54 17:22 Lymphocytes # (1.0-4.8) k/uL D-Dimer (<0.60) mg/L FEU ABG pCO2 (35-45) mmHg ABG pO2 (83-108) mmHg ABG O2 Saturation (94-97) % Chloride (98-107) mmol/L Carbon Dioxide (22-30) mmol/L BUN (9-20) mg/dL Glucose (74-99) mg/dL POC Glucose (mg/dL) 108 H 111 H (75-99) mg/dL Calcium (8.4-10.2) mg/dL Ferritin (22.0-322.0) ng/mL C-Reactive Protein (<10.0) mg/L Total Protein (6.3-8.2) g/dL Albumin (3.5-5.0) g/dL Procalcitonin 0.11 H (0.02-0.09) ng/mL Urine Protein (Negative) Urine Ketones (Negative) Urine Blood (Negative) Urine RBC (0-5) /hpf Urine Mucus (None) /hpf 02/02/20 02/02/20 02/03/20 Range/Units 18:31 23:52 00:24 Lymphocytes # (1.0-4.8) k/uL D-Dimer (<0.60) mg/L FEU ABG pCO2 (35-45) mmHg ABG pO2 (83-108) mmHg ABG O2 Saturation (94-97) % Chloride (98-107) mmol/L Carbon Dioxide (22-30) mmol/L BUN (9-20) mg/dL Glucose (74-99) mg/dL POC Glucose (mg/dL) 102 H 104 H (75-99) mg/dL Calcium (8.4-10.2) mg/dL Ferritin (22.0-322.0) ng/mL C-Reactive Protein (<10.0) mg/L Total Protein (6.3-8.2) g/dL Albumin (3.5-5.0) g/dL Procalcitonin (0.02-0.09) ng/mL Urine Protein 1+ H (Negative) Urine Ketones Trace H (Negative) Urine Blood Small H (Negative) Urine RBC 31 H (0-5) /hpf Urine Mucus Occasional H (None) /hpf 02/03/20 02/03/20 02/03/20 Range/Units 04:12 04:12 04:12 Lymphocytes # 0.2 L (1.0-4.8) k/uL D-Dimer 7.19 H (<0.60) mg/L FEU ABG pCO2 (35-45) mmHg ABG pO2 (83-108) mmHg ABG O2 Saturation (94-97) % Chloride 114 H (98-107) mmol/L Carbon Dioxide 21 L (22-30) mmol/L BUN 22 H (9-20) mg/dL Glucose 113 H (74-99) mg/dL POC Glucose (mg/dL) (75-99) mg/dL Calcium (8.4-10.2) mg/dL Ferritin 703.5 H (22.0-322.0) ng/mL C-Reactive Protein 161.8 H (<10.0) mg/L Total Protein 5.2 L (6.3-8.2) g/dL Albumin 2.3 L (3.5-5.0) g/dL Procalcitonin (0.02-0.09) ng/mL Urine Protein (Negative) Urine Ketones (Negative) Urine Blood (Negative) Urine RBC (0-5) /hpf Urine Mucus (None) /hpf 02/03/20 Range/Units 11:12 Lymphocytes # (1.0-4.8) k/uL D-Dimer (<0.60) mg/L FEU ABG pCO2 (35-45) mmHg ABG pO2 (83-108) mmHg ABG O2 Saturation (94-97) % Chloride (98-107) mmol/L Carbon Dioxide (22-30) mmol/L BUN (9-20) mg/dL Glucose (74-99) mg/dL POC Glucose (mg/dL) 102 H (75-99) mg/dL Calcium (8.4-10.2) mg/dL Ferritin (22.0-322.0) ng/mL C-Reactive Protein (<10.0) mg/L Total Protein (6.3-8.2) g/dL Albumin (3.5-5.0) g/dL Procalcitonin (0.02-0.09) ng/mL Urine Protein (Negative) Urine Ketones (Negative) Urine Blood (Negative) Urine RBC (0-5) /hpf Urine Mucus (None) /hpf Microbiology - Last 24 Hours (Table) 01/28/20 18:40 Blood Culture - Preliminary Blood No Growth after 120 hours Assessment and Plan Plan: #1. Acute hypoxemic respiratory failure secondary to COVID 19 pneumonitis with underlying chronic interstitial fibrosis and COPD, started on Remdesivir on 01/30/2020 and completed the course of treatment yesterday., status post transfusion with 1 unit of convalescent plasma on 02/01/2020, the patient is a lso on Decadron 6 mg IV on a daily basis. Chest x-ray still showing a dense bilateral pulmonary infiltrates and the patient continues to be in hypoxic respiratory failure requiring high flow oxygen. He is also on significant degree of respiratory distress. #2. Altered mental status, likely related to metabolic encephalopathy, related to severe hypoxemia, fever, related to acute Covid 19 pneumonia, consider the possibility of an embolic phenomena probably induced by his atrial fibrillation in addition to hypercoagulability induced by Covid 19 infection. A neurologic consultation will be obtained. Unable to do a CAT scan of the brain because of his been extremely borderline pulmonary status. He is also quite restless and he may not tolerate CAT scan imaging at this point in time. #3. Elevated inflammatory markers, increased d-dimer related to acute Covid 19 related infection, that have actually trended up during his admission #4. Prior history of heavy tobacco dependence #5. Diabetes mellitus #6. History of shingles #7. Hyperlipidemia #8. Hypertension #9 atrial fibrillation, rate is controlled at this point in time the patient is on a Cardizem drip at 10 mg an hour. Plan Keep the patient in intensive care unit Continue IV Decadron 6 mg on a daily basis The patient will be kept on high flow oxygen in addition to 100% nonrebreather facemask Continue Cardizem drip at 10 mg an hour Changes a Lovenox dose on the milligrams subcu every 12 hours Obtain neurology consultation Consider a lumbar puncture or even a CAT scan of the brain once the patient is more stable CODE STATUS is no CPR or defibrillation. The family still open for intubation Condition is critical. We'll continue to follow.
--- NOTE | 2020-02-03 15:32 | P.PCN ---
Date of Procedure: 02/03/20 Preoperative Diagnosis: Acute hypoxic respiratory failure/pneumonia Postoperative Diagnosis: Same Procedure(s) Performed: Insertion of a central line Anesthesia: local Surgeon: Kamala Conde Estimated Blood Loss (ml): 0 Pathology: none sent Condition: critical Disposition: ICU Operative Findings: Indication: Hemodynamic monitoring/Intravenous access. A time-out was completed verifying correct patient, procedure, site, positioning, and implant(s) or special equipment if applicable. The patient was placed in a dependent position appropriate for central line placement based on the vein to be cannulated. The patients left neck [or right/left] groin was prepped and draped in sterile fashion. 1% Lidocaine was used to anesthetize the surrounding skin area. A triple lumen 9F Cordis catheter was introduced into the internal jugular vein using [employer] ue. The catheter was threaded smoothly over the guide wire and appropriate blood return was obtained. Each lumen of the catheter was evacuated of air and flushed with sterile saline. The catheter was then sutured in place to the skin and a sterile dressing applied. Perfusion to the extremity distal to the point of catheter insertion was checked and found to be adequate. The patient tolerated the procedure well and there were no complications.
[2020-02-03] MEDS ORDERED: ENOXAPARIN 60 MG/0.6 ML SYRINGE SQ ONE (15:45)
--- NOTE | 2020-02-03 15:45 | P.CNNES ---
History of Present Illness Consult date: 02/03/20 Requesting physician: Shelbie Meehan Reason for Consult: Rigidity, COVID History of Present Illness: Patient is a 84-year-old male came to the hospital on 01/28/2020 for shortness of breath. Patient was recently tested positive for COVID-19 5 days prior to arrival. Patient was only taking Zithromax and Medrol Dosepak prior to arrival. Patient was febrile with temperature 101.3 pulse 104 and oxygen saturation 82% on room air. [place] evaluation revealed lymphopenia d-dimer of 2. Chest x-ray demonstrated pulmonary interstitial fibrosis with bilateral interstitial infiltrates. Patient has been started on Redemesvir. Patient was also found to have new onset atrial fibrillation with rapid ventricular rate with a heart rate in 130s to 140s. He was started on Cardizem drip. Patient has underlying COPD, diabetes, hypertension and hyperlipidemia. Patient has been confused. Sometimes he is more lucid, but still oriented 1, whereas other times he is shaky, very confused, not able to answer questions. P atient's pupils sometimes are small pinpoint and sometimes are normal size, round and reacting. Patient was also noted to be significantly rigid in his arms and legs which prompted this neurology consultation. Per nurse report, it started yesterday at 6:30 PM when he became very rigid in his arms more than the legs. Patient appears to be encephalopathic, very rigid as per examination below. Patient able to answer some questions appropriately as below. No seizure-like activity or focal symptoms have been noted. Chest x-ray from today is consistent with bilateral pneumonia. Patient's CBC is normal, d-dimer is 7.19. Chem-7 is normal, hepatic panel normal. CRP is 161. Carbamazepine level is 4.5, CPK normal 147, hemoglobin A1c 6.6 on 01/30/2020. I spoke to patient's on the phone. She mentions as patient is mentally very sharp, no signs of dementia. Even up to 01/25/2020 he was paying the bills. He was able to drive, get groceries does not use any assistive device. He was seen in urgent care on 01/17/2020 diagnosed with cold. On 01/24/2020 he was diagnosed with Covid, but got worse on 01/28/2020 when he required hospitalization. Patient's further mention that he takes carbamazepine 200 mg twice a day for bipolar disorder, which he has been taking since last 15-20 years since he was diagnosed with bipolar disorder in 1980. Tegretol has been held since yesterday. Patient received 2 doses of Tegretol on 01/31/2020, only one night dose on 02/01/2020, and none yesterday or today. He also takes metformin, Lipitor 40 mg. Patient has smoked 1 pack per day from age [age] when he quit 23 years ago. Review of Systems ROS unobtainable: due to mental status Past Medical History Past Medical History: COPD, Diabetes Mellitus Additional Past Medical History / Comment(s): Shingles. History of Any Multi-Drug Resistant Organisms: None Reported Past Surgical History: Hernia Repair Past Psychological History: No Psychological Hx Reported Smoking Status: Former smoker Past Alcohol Use History: Occasional Past Drug Use History: None Reported - Past Family History Family Family Medical History: No Reported History Medications and Allergies Home Medications Medication Instructions Recorded Confirmed Type Aspirin [Adult Low Dose Aspirin EC] 81 mg PO DAILY 01/28/20 01/28/20 History Atorvastatin Calcium [Lipitor] 40 mg PO HS 01/28/20 01/28/20 History Azithromycin [Zithromax] See Taper PO DAILY 01/28/20 01/28/20 History Budesonide-Formot 160-4.5 Mcg 2 puff INHALATION RT-BID 01/28/20 01/28/20 History [Symbicort 160-4.5 Mcg Inhaler] Docusate [Colace] 100 mg PO BID PRN 01/28/20 01/28/20 History Fluticasone Propionate [Flonase 1 spray EA NOSTRIL DAILY 01/28/20 01/28/20 History Allergy Relief] Hydrochlorothiazide 12.5 mg PO DAILY 01/28/20 01/28/20 History [hydroCHLOROthiazide] Losartan Potassium [Cozaar] 50 mg PO DAILY 01/28/20 01/28/20 History Tiotropium [place] [Spiriva] 1 cap INHALATION RT-DAILY 01/28/20 01/28/20 History carBAMazepine 200 mg PO Q12H 01/28/20 01/28/20 History metFORMIN HCL 500 mg PO HS 01/28/20 01/28/20 History methylPREDNISolone Dose Pack See Taper PO DAILY 01/28/20 01/28/20 History [Medrol Dose Pack] Allergies Allergy/AdvReac Type Severity Reaction Status Date / Time No Known Allergies Allergy Verified 01/28/20 22:40 Physical Examination - Vital Signs Vital Signs: Vital Signs Temp Pulse Pulse Pulse Resp BP BP 02/03/20 07:59 02/03/20 07:00 73 15 103/63 02/03/20 06:00 79 20 122/89 02/03/20 05:00 35 H 135/90 02/03/20 04:30 77 15 02/03/20 04:11 02/03/20 04:00 98.5 F 99 24 136/92 02/03/20 03:30 101 H 25 H 133/79 02/03/20 03:00 113 H 30 H 132/81 02/03/20 02:30 99 20 135/90 02/03/20 02:00 111 H 12 144/87 02/03/20 01:30 111 H 24 143/80 02/03/20 01:00 108 H 15 144/92 02/03/20 00:58 02/03/20 00:30 112 H 14 147/86 02/03/20 00:00 99.1 F 112 H 20 125/83 02/02/20 23:30 110 H 33 H 154/89 02/02/20 23:00 117 H 22 140/80 02/02/20 22:30 111 H 16 139/79 02/02/20 22:00 141 H 14 134/118 02/02/20 21:30 116 H 32 H 112/93 02/02/20 21:00 138 H 7 L 146/110 02/02/20 20:30 156 H 31 H 154/86 02/02/20 20:00 98.4 F 24 140/98 02/02/20 19:30 122 H 35 H 122/89 02/02/20 19:00 133 H 23 150/102 02/02/20 18:30 128 H 40 H 137/124 02/02/20 18:00 133 H 40 H 152/122 02/02/20 17:30 99.5 F 142 H 39 H 132/112 02/02/20 16:00 102 H 22 02/02/20 15:53 02/02/20 15:21 99.7 F H 102 H 22 114/65 02/02/20 12:00 112 H 24 02/02/20 11:27 99.3 F 112 H 24 152/67 02/02/20 11:25 120 H Pulse Ox Pulse Ox 02/03/20 07:59 92 L 02/03/20 07:00 95 02/03/20 06:00 95 02/03/20 05:00 92 L 02/03/20 04:30 94 L 02/03/20 04:11 91 L 02/03/20 04:00 91 L 02/03/20 03:30 91 L 02/03/20 03:00 92 L 02/03/20 02:30 96 02/03/20 02:00 95 02/03/20 01:30 94 L 02/03/20 01:00 95 02/03/20 00:58 95 02/03/20 00:30 94 L 02/03/20 00:00 94 L 02/02/20 23:30 96 02/02/20 23:00 94 L 02/02/20 22:30 93 L 02/02/20 22:00 94 L 02/02/20 21:30 91 L 02/02/20 21:00 94 L 02/02/20 20:30 94 L 02/02/20 20:00 95 02/02/20 19:30 96 02/02/20 19:00 88 L 02/02/20 18:30 91 L 02/02/20 18:00 94 L 02/02/20 17:30 93 L 02/02/20 16:00 02/02/20 15:53 93 L 02/02/20 15:21 95 02/02/20 12:00 02/02/20 11:27 96 02/02/20 11:25 95 Intake and Output 02/02/20 02/03/20 02/03/20 22:59 06:59 14:59 Intake Total 375 600 191.167 Output Total 461 585 60 Balance -86 15 131.167 Intake: IV 375 600 75 Sodium Chloride 0.9% 1, 375 600 75 000 ml @ 75 mls/hr IV . [id number] [facility] Rx#:[id number] Intake, IV Titration 116.167 Amount Diltiazem 125 mg In 116.167 Sodium Chloride 0.9% 100 ml @ 10 MG/HR 10 mls/hr IV .[id number] [facility] Rx#: [id number] Output: Urine 461 585 60 Other: Voiding Method Indwelling Catheter Indwelling Catheter Weight 109.1 kg On examination patient is laying in the bed, appears to be in respiratory distress. Patient keeps his eyes closed forcefully. Patient however did respond to his name, and also said he is 84 years of age. Speech was fairly audible. Patient speaks with nasal tone. Patient has high flow oxygen per Airvo. Patient is frequently coughing. Patient's face is symmetric. Patient is extremely rigid in bilateral upper extremities, with rental coordinator very tight. His legs is also very rigid. Reflexes are symmetric. Plantars are acute local. Patient response to painful stimuli equally. Detailed examination could not be performed. Results - Laboratory Findings CBC and BMP: 02/03/20 04:12 02/03/20 04:12 Abnormal Lab Findings: Abnormal Labs 01/28/20 01/28/20 01/28/20 18:40 18:40 18:40 RBC 5.91 H Hgb Hct Lymphocytes # 0.5 L D-Dimer 2.06 H ABG pH ABG pCO2 ABG pO2 ABG Total CO2 ABG O2 Saturation Sodium 131 L Chloride Carbon Dioxide BUN 34 H Glucose 111 H POC Glucose (mg/dL) Hemoglobin A1c Calcium Magnesium Ferritin 1128.7 H Lactate Dehydrogenase 849 H C-Reactive Protein 42.0 H Total Protein Albumin 3.4 L Procalcitonin Urine Protein Urine Ketones Urine Blood Urine RBC Urine Mucus 01/28/20 01/28/20 01/29/20 18:40 19:31 06:25 RBC Hgb Hct Lymphocytes # D-Dimer ABG pH 7.46 H ABG pCO2 32 L ABG pO2 54 L* ABG Total CO2 ABG O2 Saturation 89.2 L Sodium Chloride Carbon Dioxide BUN Glucose POC Glucose (mg/dL) 113 H Hemoglobin A1c Calcium Magnesium Ferritin Lactate Dehydrogenase C-Reactive Protein Total Protein Albumin Procalcitonin 0.11 H Urine Protein Urine Ketones Urine Blood Urine RBC Urine Mucus 01/29/20 01/29/20 01/29/20 06:47 11:53 11:55 RBC Hgb Hct Lymphocytes # D-Dimer ABG pH ABG pCO2 ABG pO2 ABG Total CO2 26 H ABG O2 Saturation 98.2 H Sodium 135 L Chloride Carbon Dioxide BUN 32 H Glucose 112 H POC Glucose (mg/dL) 120 H Hemoglobin A1c Calcium Magnesium Ferritin Lactate Dehydrogenase C-Reactive Protein Total Protein Albumin Procalcitonin Urine Protein Urine Ketones Urine Blood Urine RBC Urine Mucus 01/29/20 01/29/20 01/30/20 16:54 21:24 06:35 RBC Hgb Hct Lymphocytes # D-Dimer ABG pH ABG pCO2 ABG pO2 ABG Total CO2 ABG O2 Saturation Sodium Chloride Carbon Dioxide BUN Glucose POC Glucose (mg/dL) 126 H 107 H 110 H Hemoglobin A1c Calcium Magnesium Ferritin Lactate Dehydrogenase C-Reactive Protein Total Protein Albumin Procalcitonin Urine Protein Urine Ketones Urine Blood Urine RBC Urine Mucus 01/30/20 01/30/20 01/30/20 07:27 07:27 07:27 RBC Hgb Hct Lymphocytes # 0.6 L D-Dimer 1.71 H ABG pH ABG pCO2 ABG pO2 ABG Total CO2 ABG O2 Saturation Sodium Chloride Carbon Dioxide BUN Glucose POC Glucose (mg/dL) Hemoglobin A1c 6.6 H Calcium Magnesium Ferritin Lactate Dehydrogenase C-Reactive Protein Total Protein Albumin Procalcitonin Urine Protein Urine Ketones Urine Blood Urine RBC Urine Mucus 01/30/20 01/30/20 01/30/20 07:27 12:15 17:28 RBC Hgb Hct Lymphocytes # D-Dimer ABG pH ABG pCO2 ABG pO2 ABG Total CO2 ABG O2 Saturation Sodium Chloride 109 H Carbon Dioxide BUN 24 H Glucose 114 H POC Glucose (mg/dL) 187 H 146 H Hemoglobin A1c Calcium Magnesium Ferritin 849.5 H Lactate Dehydrogenase 732 H C-Reactive Protein 34.2 H Total Protein 5.7 L Albumin 2.8 L Procalcitonin Urine Protein Urine Ketones Urine Blood Urine RBC Urine Mucus 01/30/20 01/31/20 01/31/20 20:26 06:26 07:37 RBC Hgb Hct Lymphocytes # 0.4 L D-Dimer ABG pH ABG pCO2 ABG pO2 ABG Total CO2 ABG O2 Saturation Sodium Chloride Carbon Dioxide BUN Glucose POC Glucose (mg/dL) 137 H 119 H Hemoglobin A1c Calcium Magnesium Ferritin Lactate Dehydrogenase C-Reactive Protein Total Protein Albumin Procalcitonin Urine Protein Urine Ketones Urine Blood Urine RBC Urine Mucus 01/31/20 01/31/20 01/31/20 07:37 07:37 12:25 RBC Hgb Hct Lymphocytes # D-Dimer 1.40 H ABG pH ABG pCO2 ABG pO2 ABG Total CO2 ABG O2 Saturation Sodium Chloride 112 H Carbon Dioxide BUN 21 H Glucose 115 H POC Glucose (mg/dL) 201 H Hemoglobin A1c Calcium 8.0 L Magnesium Ferritin 691.8 H Lactate Dehydrogenase 697 H C-Reactive Protein 43.5 H Total Protein 5.0 L Albumin 2.4 L Procalcitonin Urine Protein Urine Ketones Urine Blood Urine RBC Urine Mucus 01/31/20 01/31/20 02/01/20 17:11 20:22 06:19 RBC Hgb Hct Lymphocytes # D-Dimer ABG pH ABG pCO2 ABG pO2 ABG Total CO2 ABG O2 Saturation Sodium Chloride Carbon Dioxide BUN Glucose POC Glucose (mg/dL) 149 H 114 H 111 H Hemoglobin A1c Calcium Magnesium Ferritin Lactate Dehydrogenase C-Reactive Protein Total Protein Albumin Procalcitonin Urine Protein Urine Ketones Urine Blood Urine RBC Urine Mucus 02/01/20 02/01/20 02/01/20 07:49 07:49 09:00 RBC Hgb 12.5 L Hct 38.0 L Lymphocytes # 0.4 L D-Dimer 3.20 H ABG pH ABG pCO2 ABG pO2 ABG Total CO2 ABG O2 Saturation Sodium Chloride 117 H Carbon Dioxide 19 L BUN Glucose POC Glucose (mg/dL) Hemoglobin A1c Calcium 6.8 L Magnesium 1.5 L Ferritin 644.5 H Lactate Dehydrogenase 746 H C-Reactive Protein 65.8 H Total Protein 4.3 L Albumin 2.0 L Procalcitonin Urine Protein Urine Ketones Urine Blood Urine RBC Urine Mucus 02/01/20 02/01/20 02/01/20 11:46 16:23 16:31 RBC Hgb Hct Lymphocytes # D-Dimer ABG pH ABG pCO2 33 L ABG pO2 49 L* ABG Total CO2 ABG O2 Saturation 87.0 L Sodium Chloride Carbon Dioxide BUN Glucose POC Glucose (mg/dL) 112 H 125 H Hemoglobin A1c Calcium Magnesium Ferritin Lactate Dehydrogenase C-Reactive Protein Total Protein Albumin Procalcitonin Urine Protein Urine Ketones Urine Blood Urine RBC Urine Mucus 02/01/20 02/01/20 02/02/20 16:32 20:24 06:22 RBC Hgb Hct Lymphocytes # D-Dimer 3.84 H ABG pH ABG pCO2 ABG pO2 ABG Total CO2 ABG O2 Saturation Sodium Chloride Carbon Dioxide BUN Glucose POC Glucose (mg/dL) 136 H 107 H Hemoglobin A1c Calcium Magnesium Ferritin Lactate Dehydrogenase C-Reactive Protein Total Protein Albumin Procalcitonin Urine Protein Urine Ketones Urine Blood Urine RBC Urine Mucus 02/02/20 02/02/20 02/02/20 07:41 11:09 15:17 RBC Hgb Hct Lymphocytes # D-Dimer ABG pH ABG pCO2 34 L ABG pO2 198 H ABG Total CO2 ABG O2 Saturation 100.0 H Sodium Chloride Carbon Dioxide BUN Glucose POC Glucose (mg/dL) 120 H Hemoglobin A1c Calcium Magnesium Ferritin Lactate Dehydrogenase 833 H C-Reactive Protein 134.5 H Total Protein Albumin Procalcitonin Urine Protein Urine Ketones Urine Blood Urine RBC Urine Mucus 02/02/20 02/02/20 02/02/20 15:21 15:21 15:21 RBC Hgb Hct Lymphocytes # 0.1 L D-Dimer ABG pH ABG pCO2 ABG pO2 ABG Total CO2 ABG O2 Saturation Sodium Chloride 114 H Carbon Dioxide BUN 23 H Glucose 121 H POC Glucose (mg/dL) Hemoglobin A1c Calcium 8.2 L Magnesium Ferritin Lactate Dehydrogenase C-Reactive Protein Total Protein 4.9 L Albumin 2.2 L Procalcitonin 0.11 H Urine Protein Urine Ketones Urine Blood Urine RBC Urine Mucus 02/02/20 02/02/20 02/02/20 16:54 17:22 18:31 RBC Hgb Hct Lymphocytes # D-Dimer ABG pH ABG pCO2 ABG pO2 ABG Total CO2 ABG O2 Saturation Sodium Chloride Carbon Dioxide BUN Glucose POC Glucose (mg/dL) 108 H 111 H Hemoglobin A1c Calcium Magnesium Ferritin Lactate Dehydrogenase C-Reactive Protein Total Protein Albumin Procalcitonin Urine Protein 1+ H Urine Ketones Trace H Urine Blood Small H Urine RBC 31 H Urine Mucus Occasional H 02/02/20 02/03/20 02/03/20 23:52 00:24 04:12 RBC Hgb Hct Lymphocytes # 0.2 L D-Dimer ABG pH ABG pCO2 ABG pO2 ABG Total CO2 ABG O2 Saturation Sodium Chloride Carbon Dioxide BUN Glucose POC Glucose (mg/dL) 102 H 104 H Hemoglobin A1c Calcium Magnesium Ferritin Lactate Dehydrogenase C-Reactive Protein Total Protein Albumin Procalcitonin Urine Protein Urine Ketones Urine Blood Urine RBC Urine Mucus 02/03/20 02/03/20 04:12 04:12 RBC Hgb Hct Lymphocytes # D-Dimer 7.19 H ABG pH ABG pCO2 ABG pO2 ABG Total CO2 ABG O2 Saturation Sodium Chloride 114 H Carbon Dioxide 21 L BUN 22 H Glucose 113 H POC Glucose (mg/dL) Hemoglobin A1c Calcium Magnesium Ferritin 703.5 H Lactate Dehydrogenase C-Reactive Protein 161.8 H Total Protein 5.2 L Albumin 2.3 L Procalcitonin Urine Protein Urine Ketones Urine Blood Urine RBC Urine Mucus Assessment and Plan Assessment: * Altered mental status, likely due to toxic metabolic encephalopathy. * Extreme rigidity with intermittent tremors of bilateral upper extremities with normal CPK, probably due to delirium. Rule out drug withdrawal. Patient has been on Tegretol 200 mg twice a day for bipolar disorder since 1980. His symptoms started after he was not able to take oral medications, therefore withdrawal from Tegretol is a possibility. Differential diagnosis also includes diencephalic storm, although patient is not profusely sweating that occurs with it. * Bilateral pneumonia due to COVID-19 * Hypertension * Hyperlipidemia * History of shingles * Diabetes * New onset atrial fibrillation, on anticoagulation with Lovenox. * History of bipolar disorder * History of tobacco use Plan: * Patient is extremely rigid in his arms > legs. Patient has not been receiving his Tegretol. Suspect rigidity from withdrawal from Tegretol. Patient cannot take anything by mouth at this time. We will empirically try Keppra 500 mg twice a day. * If no improvement by tomorrow, may consider lumbar puncture to rule out intracranial infection. Consider ID consult as well. * CT head when possible to rule out CVA, given recent history of atrial fibrillation and COVID-19 * Discussed with Dr. Conde in detail.
[2020-02-03 17:30] LABS: Glucose,Whole Blood 123 mg/dL (75-99)
[2020-02-03] MEDS: HALOPERIDOL LACTATE 5 MG/ML 1 ML VIAL IVP PRN ×3 (17:30→23:16)
[2020-02-03] MEDS: ATORVASTATIN 40 MG TAB PO SCH (19:43)
[2020-02-03] MEDS: MELATONIN 5 MG TABLET PO SCH (19:43)
[2020-02-03] MEDS: ENOXAPARIN 100 MG/ML SYRINGE SQ SCH (19:48)
[2020-02-03] MEDS: levETIRAcetam IV 500 MG in SODIUM CHLORIDE 0.9% 100 ML IVPB SCH (20:18)
[2020-02-04] MEDS: INSULIN ASPART (NovoLOG) 100 UNIT/ML VIAL SQ SCH ×4 (02:40→18:05)
[2020-02-04 02:49] LABS: Glucose,Whole Blood 105 mg/dL (75-99)
[2020-02-04 04:28] LABS: Basophils % (A) 0 %; Eosinophils % (A) 0 %; HCT 41.6 % (39.0-53.0); HGB 13.7 gm/dL (13.0-17.5); Lymphocytes # (A) 0.3 k/uL (1.0-4.8); Lymphocytes % (A) 4 %; MCH 28.1 pg (25.0-35.0); MCHC 32.8 g/dL (31.0-37.0); MCV 85.5 fL (80.0-100.0); Mean Platelet Volume 7.4; Monocytes # (A) 0.7 k/uL (0-1.0); Monocytes % (A) 9 %; Neutrophils # (A) 6.5 k/uL (1.3-7.7); Neutrophils % (A) 85 %; Platelet Count 306 k/uL (150-450); RBC 4.87 m/uL (4.30-5.90); RDW 13.5 % (11.5-15.5); WBC 7.7 k/uL (3.8-10.6)
[2020-02-04 04:39] LABS: ALT 29 U/L (4-49); AST 36 U/L (17-59); African American GFR (CKD) >90 (>60 ml/min/1.73 sqM); Albumin 2.4 g/dL (3.5-5.0); Alkaline Phosphatase 71 U/L (38-126); Anion Gap 4 mmol/L; Blood Urea Nitrogen 27 mg/dL (9-20); C Reactive Protein 77.1 mg/L (<10.0); Calcium 8.8 mg/dL (8.4-10.2); Carbon Dioxide 24 mmol/L (22-30); Chloride 115 mmol/L (98-107); Glucose 110 mg/dL (74-99); Non-African American GFR(CKD) 82 (>60 ml/min/1.73 sqM); Potassium 4.5 mmol/L (3.5-5.1); Sodium 143 mmol/L (137-145); Total Bilirubin 0.8 mg/dL (0.2-1.3); Total Protein 5.2 g/dL (6.3-8.2)
[2020-02-04] MEDS: HALOPERIDOL LACTATE 5 MG/ML 1 ML VIAL IVP PRN ×2 (05:15→08:15)
[2020-02-04] MEDS: SODIUM CHLORIDE 0.9% 1,000 ML IV SCH ×2 (05:44→08:15)
[2020-02-04 06:14] LABS: Glucose,Whole Blood 122 mg/dL (75-99)
--- NOTE | 2020-02-04 07:31 | XR ---
EXAMINATION TYPE: XR chest 1V portable DATE OF EXAM: 02/04/2020 COMPARISON: 02/03/2020 INDICATION: Pneumonia TECHNIQUE: Single frontal view of the chest is obtained. FINDINGS: The heart size is normal. The pulmonary vasculature is indistinct. Diffuse patchy consolidations bilaterally. This is worsening from comparison. Left central venous catheter tip is within the superior vena cava region. IMPRESSION: 1. Worsening bilateral lung consolidations.
[2020-02-04] MEDS: SYMBICORT 160-4.5 MCG INHALER INHALATION SCH (07:56)
[2020-02-04] MEDS: ALBUTEROL HFA INHALER INHALATION PRN (07:56)
[2020-02-04] MEDS: TIOTROPIUM 18 MCG/PUFF INHALER INHALATION SCH (07:56)
[2020-02-04] MEDS: DILTIAZEM 125 MG in SODIUM CHLORIDE 0.9% 100 ML IV SCH (08:02)
[2020-02-04] MEDS: TAMSULOSIN 0.4 MG CAP.ER.24H PO SCH (08:08)
[2020-02-04] MEDS: ASCORBIC ACID 500 MG TAB PO SCH (08:08)
[2020-02-04] MEDS: FLUTICASONE 50MCG/SPRAY NASAL 16GM EA NOSTRIL SCH (08:08)
[2020-02-04] MEDS: ASPIRIN 81 MG PO SCH (08:08)
[2020-02-04] MEDS: CHOLECALCIFEROL 1,000 UNIT TAB PO SCH (08:08)
[2020-02-04] MEDS: LOSARTAN 50 MG TAB PO SCH (08:10)
[2020-02-04] MEDS: ZINC SULFATE 220 MG CAP PO SCH (08:10)
[2020-02-04] MEDS: levETIRAcetam IV 500 MG in SODIUM CHLORIDE 0.9% 100 ML IVPB SCH (08:12)
[2020-02-04] MEDS: FAMOTIDINE 20 MG/2 ML VIAL IV SCH ×2 (08:12→20:53)
[2020-02-04] MEDS: DEXAMETHASONE SOD PHOSPHATE 10 MG/ML 1 ML VIAL IV SCH (08:12)
[2020-02-04] MEDS: ENOXAPARIN 100 MG/ML SYRINGE SQ SCH ×2 (08:13→20:52)
[2020-02-04] MEDS: DEXMEDETOMIDINE/0.9% NACL(PMX) 400 MCG in EMPTY BAG 1 BAG IV SCH (09:15)
[2020-02-04 09:45] LABS: Ferritin 752.9 ng/mL (22.0-322.0)
--- NOTE | 2020-02-04 11:26 | P.PN ---
Subjective Progress Note Date: 02/04/20 Principal diagnosis: SOB Patient is not doing well, he is talking in a senseless manner. He continues to be tachypneic and very short of breath. Continues to be hypoxic as well on Airvo at 60 l/min, in addition to 100% nonrebreather Fio2 81%, but his heart rate has improved on Cardizem drip. No fevers reported overnight. Objective - Vital Signs Vital signs: Vital Signs Temp 98.1 F 02/04/20 09:00 Pulse 102 H 02/04/20 10:00 Resp 42 H 02/04/20 10:00 BP 114/61 02/04/20 10:00 Pulse Ox 87 L 02/04/20 10:00 Intake & Output 02/03/20 02/04/20 02/04/20 18:59 06:59 18:59 Intake Total 2016.167 1108.167 473.833 Output Total 610 875 325 Balance 1406.167 233.167 148.833 Weight 109.1 kg 107.3 kg Intake: IV 1900 900 330 Sodium Chloride 0.9% 1, 900 900 300 000 ml @ 75 mls/hr IV . [id number] [facility] Rx#:[id number] Sodium Chloride 0.9% 1, 1000 000 ml @ 999 mls/hr IV . Q1H1M [facility] Rx#:[id number] cardizem 30 Intake, IV Titration 116.167 208.167 143.833 Amount Diltiazem 125 mg In 116.167 108.167 143.833 Sodium Chloride 0.9% 100 ml @ 10 MG/HR 10 mls/hr IV .[id number] [facility] Rx#: [id number] levETIRAcetam IV 500 mg 100 In Sodium Chloride 0.9% 100 ml @ 400 mls/hr IVPB Q12HR [facility] Rx#:[id number] Output: Urine 610 875 325 Other: Voiding Method Indwelling Catheter Indwelling Catheter - Exam General: ill appearing, moderate distress, appears at stated age Derm: warm, dry Head: atraumatic, normocephalic, symmetric Eyes: EOMI, no lid lag, anicteric sclera Mouth: no lip lesion, mucus membranes moist Cardiovascular: S1 and S2 tachycardic, no murmur, positive posterior tibial pulse bilateral, Lungs: ronchi bilateral Abdominal: soft, nontender to palpation, no guarding, no appreciable organomegaly Ext: no gross muscle atrophy, no edema, no contractures Neuro: Gen. weakness, agitated at times. no focal neuro deficits Psych: confused. - Labs CBC & Chem 7: 02/04/20 03:50 02/04/20 03:50 Labs: Abnormal Lab Results - Last 24 Hours (Table) 02/03/20 02/04/20 02/04/20 Range/Units 17:23 02:48 03:50 Lymphocytes # 0.3 L (1.0-4.8) k/uL Chloride (98-107) mmol/L BUN (9-20) mg/dL Glucose (74-99) mg/dL POC Glucose (mg/dL) 123 H 105 H (75-99) mg/dL Ferritin (22.0-322.0) ng/mL CK-MB (CK-2) (0.0-2.4) ng/mL C-Reactive Protein (<10.0) mg/L Total Protein (6.3-8.2) g/dL Albumin (3.5-5.0) g/dL 02/04/20 02/04/20 02/04/20 Range/Units 03:50 03:50 06:12 Lymphocytes # (1.0-4.8) k/uL Chloride 115 H (98-107) mmol/L BUN 27 H (9-20) mg/dL Glucose 110 H (74-99) mg/dL POC Glucose (mg/dL) 122 H (75-99) mg/dL Ferritin 752.9 H (22.0-322.0) ng/mL CK-MB (CK-2) 6.9 H (0.0-2.4) ng/mL C-Reactive Protein 77.1 H (<10.0) mg/L Total Protein 5.2 L (6.3-8.2) g/dL Albumin 2.4 L (3.5-5.0) g/dL Microbiology - Last 24 Hours (Table) 01/28/20 18:40 Blood Culture - Final Blood No Growth after 144 hours 02/02/20 15:21 Blood Culture - Preliminary Blood No Growth after 24 hours Assessment and Plan Plan: COVID 19 pneumonitis with acute hypoxic respiratory failure -Dexamethasone, zinc, vitamin C, vitamin D, Pepcid, melatonin -Pulmonary recommendations: Remedesivir course finished 02/01, s/p convalesent plasma 01/31 -Follow COVID markers -Follow chest x-ray -Wean O2 as able -Might need to be intubated today. Rigidity - Resolved - CPK ok - Hold tegretol (on for bipolar depression per ). - neuro consulted COPD without acute exacerbation -Continue with albuterol, Spiriva, and Symbicort -Pulmonary recommendations -Pulmonary hygiene Metabolic encephalopathy -Supportive care -Frequent reorientation Diabetes mellitus type 2 -Metformin on hold -Sliding-scale insulin -Blood sugars controlled -Hemoglobin A1c 6.6 Urinary retention with penile implant -Flomax Dyslipidemia -Statin therapy Hypertension -Continue with Cozaar, hold hydrochlorothiazide -Follow blood pressures Prognosis Guarded. DVT prophylaxis: lovenox bid Discussed with: Patient, nursing Anticipated discharge: Too early to tell Anticipated discharge place: Too early to tell A total of 35 minutes was spent on the care of this complex patient more than 50% of the time was spent in counseling and care coordination.
[2020-02-04 12:20] LABS: Glucose,Whole Blood 116 mg/dL (75-99)
--- NOTE | 2020-02-04 13:23 | P.PN ---
Subjective Progress Note Date: 02/04/20 Patient was seen for a follow-up. Patient continues to be in severe respiratory distress, on Airvo. Patient coughing. Patient not able to answer any questions, mumbling. Appears very confused. Patient has been started on Precedex, currently on 0.3 mcg/kg/h. Patient has calmed down with it, with less tachycardia. His oxygen saturation is improved as per nurse report. Objective - Vital Signs Vital signs: Vital Signs Temp 98.1 F 02/04/20 09:00 Pulse 96 02/04/20 12:00 Resp 31 H 02/04/20 12:00 BP 121/72 02/04/20 12:00 Pulse Ox 92 L 02/04/20 12:00 Intake & Output 02/03/20 02/04/20 02/04/20 18:59 06:59 18:59 Intake Total 2016.167 1108.167 643.833 Output Total 610 875 650 Balance 1406.167 233.167 -6.167 Weight 109.1 kg 107.3 kg Intake: IV 1900 900 500 Sodium Chloride 0.9% 1, 900 900 450 000 ml @ 75 mls/hr IV . [id number] [facility] Rx#:[id number] Sodium Chloride 0.9% 1, 1000 000 ml @ 999 mls/hr IV . Q1H1M [facility] Rx#:[id number] cardizem 50 Intake, IV Titration 116.167 208.167 143.833 Amount Diltiazem 125 mg In 116.167 108.167 143.833 Sodium Chloride 0.9% 100 ml @ 10 MG/HR 10 mls/hr IV .[id number] [facility] Rx#: [id number] levETIRAcetam IV 500 mg 100 In Sodium Chloride 0.9% 100 ml @ 400 mls/hr IVPB Q12HR [facility] Rx#:[id number] Output: Urine 610 875 650 Other: Voiding Method Indwelling Catheter Indwelling Catheter - Exam Patient is obviously encephalopathic, keeps his eyes closed, moaning, coughing. Patient speaks but not very clear. Sometimes can make out certain words. Unintelligible moaning mumbling. Patient's pupils are round and reacting, visual simon could not be tested. Extraocular muscles appear is intact. No gaze deviation. Face appears symmetric. Tone is equal, improved since started on Precedex. Patient moves upper and lower extremities equally. No seizures reported. Reflexes are symmetric. Plantars are withdrawal. - Labs CBC & Chem 7: 02/04/20 03:50 02/04/20 03:50 Labs: Abnormal Lab Results - Last 24 Hours (Table) 02/03/20 02/04/20 02/04/20 Range/Units 17:23 02:48 03:50 Lymphocytes # 0.3 L (1.0-4.8) k/uL Chloride (98-107) mmol/L BUN (9-20) mg/dL Glucose (74-99) mg/dL POC Glucose (mg/dL) 123 H 105 H (75-99) mg/dL Ferritin (22.0-322.0) ng/mL CK-MB (CK-2) (0.0-2.4) ng/mL C-Reactive Protein (<10.0) mg/L Total Protein (6.3-8.2) g/dL Albumin (3.5-5.0) g/dL 02/04/20 02/04/20 02/04/20 Range/Units 03:50 03:50 06:12 Lymphocytes # (1.0-4.8) k/uL Chloride 115 H (98-107) mmol/L BUN 27 H (9-20) mg/dL Glucose 110 H (74-99) mg/dL POC Glucose (mg/dL) 122 H (75-99) mg/dL Ferritin 752.9 H (22.0-322.0) ng/mL CK-MB (CK-2) 6.9 H (0.0-2.4) ng/mL C-Reactive Protein 77.1 H (<10.0) mg/L Total Protein 5.2 L (6.3-8.2) g/dL Albumin 2.4 L (3.5-5.0) g/dL 02/04/20 Range/Units 12:09 Lymphocytes # (1.0-4.8) k/uL Chloride (98-107) mmol/L BUN (9-20) mg/dL Glucose (74-99) mg/dL POC Glucose (mg/dL) 116 H (75-99) mg/dL Ferritin (22.0-322.0) ng/mL CK-MB (CK-2) (0.0-2.4) ng/mL C-Reactive Protein (<10.0) mg/L Total Protein (6.3-8.2) g/dL Albumin (3.5-5.0) g/dL Microbiology - Last 24 Hours (Table) 01/28/20 18:40 Blood Culture - Final Blood No Growth after 144 hours 02/02/20 15:21 Blood Culture - Preliminary Blood No Growth after 24 hours Assessment and Plan Assessment: * Altered mental status, likely due to toxic metabolic encephalopathy. * Extreme rigidity with intermittent tremors of bilateral upper extremities with normal CPK, probably due to delirium/metabolic encephalopathy. Rule out drug withdrawal. Patient has been on Tegretol 200 mg twice a day for bipolar disorder since 1980. His symptoms started after he was not able to take oral medications, therefore withdrawal from Tegretol is a possibility. Dif ferential diagnosis also includes diencephalic storm (less likely). Rigidity improved since started Precedex. Also started on Keppra. * Bilateral pneumonia due to COVID-19, chest x-ray from today showing worsening bilateral lung consolidation * Hypertension * Hyperlipidemia * History of shingles * Diabetes, hemoglobin A1c 6.6 * New onset atrial fibrillation, on anticoagulation with Lovenox. * History of bipolar disorder * History of tobacco use Plan: * Patient's rigidity has improved since started on Precedex and Keppra. We will decrease dose of Keppra to 500 mg IV PB daily. * Chest x-ray showing worsening bilateral lung consolidation. Patient is on dexamethasone, zinc, vitamin C, vitamin D, completed course of Remedesvir 02/01, status post convalescent plasma 01/31. * CT head when possible to rule out CVA, given recent history of atrial fibrillation and COVID-19. At present limited examination is nonfocal. Patient already on full anticoagulation dose of Lovenox. * Neurology coverage not available on the weekend. Dr. Hancock will resume neurology service from 02/07/2020.
--- NOTE | 2020-02-04 15:44 | P.PN ---
Subjective Progress Note Date: 02/04/20 The patient is seen today 01/30/2020 in follow-up on the selective care unit. He was brought into the emergency room yesterday via EMS with platelets of shortness of breath cough and congestion. He is a poor historian. His states they were both recently tested positive for COVID 19. His test was at least 7 days prior to his arrival. He does have a history of underlying COPD, hypertension, hyperlipidemia. He was quite hypoxemic on arrival. He is currently on AirVo at 60 L and 80% FiO2 to maintain O2 saturations in the 90s. CT angiogram ruled out pulmonary embolism. There is noted extensive pulmonary infiltrates consistent with pulmonary fibrosis and some superimposed mild pneumonia and atelectasis of the posterior lung bases. Pulmonary emphysema. He was initiated on Remdesivir yesterday. He is currently afebrile. White count 4.6. Hemoglobin 14.9. D-dimer 1.71. Sodium 138. Potassium 4.4. Creatinine 1.04. Ferritin 849. LDH 732. C-reactive protein 34. He remains on vitamin C, vitamin D, dexamethasone, melatonin, zinc, Lovenox. He is on bronchodilators. On 01/31/2020 patient seen in follow-up on the selective care unit, patient was found to be positive for COVID 19, this is a day two of Remdesivir, remains on high flow oxygen,via Airvo at 60 l/min, Fio2 81%, and pulse ox is 97-98%, he is confused, but appears to be in no acute respiratory distress, at times he has a congested cough, not bringing up much sputum, blood and was seen and is infusing at 75 ML per hour. T-max is 99.3F, hemodynamically stable, denies any chest pain, today's chest x-ray showing bilateral airspace disease, with a background of emphysematous changes. CRP is relatively stable, currently at 43.5, LDH is trending down, down to 697, calcitonin 0.11, damage decreasing, at 1.4. Blood culture is negative at the 48 hour jelani. Lymphopenia continues, with the lymphocyte count is 0.4, white count is 4.2, hemoglobin is 13.7. Denies any fever or chills, no chest pain. No nausea or vomiting. On 02/01/2020 patient seen in follow-up on the selective care unit, patient was admitted with Covid 19 related to pneumonia, he continues on Remdesivir, today is day three. Still requiring high flow oxygen at 60 l/min, Fio2 84%, pulse ox of 91-93%. Continues to be febrile, low-grade fevers, with a T-max of 100.2F. Continues on bronchodilators, he is on Lovenox prophylactically, gentle IV hydration continues with 0.9 normal saline at a rate is 75 ML per hour. he continues on oral Decadron. Today d-dimer is 3.20, is increased from 1.2. On 02/02/2020 patient seen in follow-up on selective care unit, patient is Covid positive pneumonia, remains on high flow oxygen per Airvo at 81%, 60 L/m, in addition to 100% nonrebreather, with a pulse ox of 96%, patient has been febrile . Patient is very confused, his lethargic, he does arouse and respond, no unilateral weakness, patient is moving all 4 extremities, no facial asymmetry, no unilateral weakness. Patient has been self proning, he is very weak, continues on Remdesivir, he status post 1 unit of convalescent plasma, he is on oral Decadron, which we will switch to IV as the patient's mental status is more altered today. He is on Lovenox at 50 mg twice daily, his last d-dimer was yesterday with a value of 3.84. Remains lymphopenic, his lymphocyte count is down to 0.1, his CRP has actually went up to 134.5, LDH of 833. Patient is febrile, blood pressure is 114/65, status post labs were sent, blood cultures, urinalysis, urine culture, lactic acid, in view of patient's worsening status we will transfer the patient to the intensive care unit On 02/03/2020, the patient is currently in the intensive care unit. The patient is currently struggling from coronavirus Covid 19 related pneumonia. He remains quite confused and lethargic. At times agitated. At times he moans. He is able to sometimes say his name. However, not following any commands and he is unable to hold a conversation at this point in time. The patient is currently on 100% nonrebreather facemask and the patient is also on high flow oxygen 60 L per minute with an FiO2 of 80% with a pulse ox of 92%. Chest x-ray shows dense bilateral pulmonary infiltrates most on the left. The triple-lumen catheter was essentially his left IJ today. IV fluids are running at 75 mL an hour. He remains in atrial fibrillation. Cardizem drip is running at 10 mg an hour. He is afebrile. I was quite concerned about his altered mentation. Exact reason for that is not clear. Could be viral induced. I have consulted neurology in this regard. Unable to do the CAT scan as the patient is quite unstable and restless to be taken to a CAT scan machine for further investigation. Would like to get a neurology input at this point in time. His blood work shows a white cell count 7.1. His d-dimer is at 7.1. His ferritin level is at 7 was 3. CRP is at 161. The rest of the electrodes are all within normal limits. For now, the patient is still being treated with a combination of Decadron and he received a unit of convalescent plasma and he completed his course of Remdesivir yesterday. His Tegretol level is at 4.5. He is also on Lovenox at a dose of 50 mg subcu every 12 hours. I'm going to increase in creatinine therapy dose of Levaquin especially with his underlying atrial fibrillation. On 02/04/2020, the patient is still in the intensive care unit. The patient is being seen for a follow-up today. The patient remains confused and encephalopathic. He has required several doses of Haldol and I made recommendations to start Precedex drip to control the agitation as the patient's agitation becomes an ongoing issue. I think he was started on Precedex at a dose of 0.25 mg/kg/m. The patient is currently suffering from a Covid 19 related pneumonia with acute hypoxic respiratory failure and diffuse but the pulmonary infiltrates secondary to pneumonia. The patient currently is on high flow oxygen at 60 L with an FiO2 of 80% and he is also utilizing 100% nonrebreather facemask. Pulse ox is in the low 90s. IV fluid is running at 75 mL an hour. The patient remains in atrial fibrillation. Cardizem drip is running a timely grams an hour. The patient is on a combination of Decadron Remdesivir and the patient also received a unit of convalescent plasma. The patient remains on Lovenox in lieu of the 100 mg subcu every 12 hours. The patient was seen by neurology. There was a concern of Tegretol withdrawal syndromes and the patient was started on Keppra per neurology recommendations. White cell count of 7.7. In terms of inflammatory markers, CRP is at 77, the patient's LFTs are within normal limits, ferritin is at 752. Renal function is stable. Objective - Vital Signs Vital signs: Vital Signs Temp 98.1 F 02/04/20 09:00 Pulse 62 02/04/20 15:00 Resp 13 02/04/20 15:00 BP 117/69 02/04/20 15:00 Pulse Ox 98 02/04/20 15:00 Intake & Output 02/03/20 02/04/20 02/04/20 18:59 06:59 18:59 Intake Total 2016.167 1108.167 898.833 Output Total 742 617 5649 Balance 1406.167 233.167 -101.167 Weight 109.1 kg 107.3 kg Intake: IV 1900 900 755 Sodium Chloride 0.9% 1, 900 900 675 000 ml @ 75 mls/hr IV . [id number] [facility] Rx#:[id number] Sodium Chloride 0.9% 1, 1000 000 ml @ 999 mls/hr IV . Q1H1M [facility] Rx#:[id number] cardizem 80 Intake, IV Titration 116.167 208.167 143.833 Amount Diltiazem 125 mg In 116.167 108.167 143.833 Sodium Chloride 0.9% 100 ml @ 10 MG/HR 10 mls/hr IV .[id number] [facility] Rx#: [id number] levETIRAcetam IV 500 mg 100 In Sodium Chloride 0.9% 100 ml @ 400 mls/hr IVPB Q12HR [facility] Rx#:[id number] Output: Urine 622 429 2303 Other: Voiding Method Indwelling Catheter Indwelling Catheter - Exam GENERAL EXAM: Drowsy, confused, febrile 84-year-old white male, on high flow oxygen per Airvo at 60 l/min, in addition to 100% nonrebreather Fio2 81% of the pulse ox between 91%, does not appear to be in respiratory distress, however mentation is altered, patient is more drowsy and more confused on today's exam then yesterday HEAD: Normocephalic/atraumatic. EYES: Normal reaction of pupils, equal size. Conjunctiva pink, sclera white. NOSE: Clear with pink turbinates. THROAT: No erythema or exudates. NECK: No masses, no JVD, no thyroid enlargement, no adenopathy. CHEST: No chest wall deformity. Symmetrical expansion. LUNGS: Equal air entry with no crackles, wheeze, rhonchi or dullness. CVS: Regular rate and rhythm, normal S1 and S2, no gallops, no murmurs, no rubs ABDOMEN: Soft, nontender. No hepatosplenomegaly, normal bowel sounds, no guarding or rigidity. EXTREMITIES: No clubbing, no edema, no cyanosis, 2+ pulses and upper and lower extremities. MUSCULOSKELETAL: Muscle strength and tone normal. SPINE: No scoliosis or deformity SKIN: No rashes CENTRAL NERVOUS SYSTEM: Drowsy, confused No focal deficits, tone is normal in all 4 extremities. The patient's speech is garbled. Is encephalopathic. He is unable to follow any commands. He senses painful stimulation and he withdraws and he gets agitated quite easily and he moans. No seizure activity has been noted. His neck is not stiff. The patient's agitation is improved while the patient is on Precedex. Neurologist on the case. - Labs CBC & Chem 7: 02/04/20 03:50 02/04/20 03:50 Labs: Abnormal Lab Results - Last 24 Hours (Table) 02/03/20 02/04/20 02/04/20 Range/Units 17:23 02:48 03:50 Lymphocytes # 0.3 L (1.0-4.8) k/uL Chloride (98-107) mmol/L BUN (9-20) mg/dL Glucose (74-99) mg/dL POC Glucose (mg/dL) 123 H 105 H (75-99) mg/dL Ferritin (22.0-322.0) ng/mL CK-MB (CK-2) (0.0-2.4) ng/mL C-Reactive Protein (<10.0) mg/L Total Protein (6.3-8.2) g/dL Albumin (3.5-5.0) g/dL 02/04/20 02/04/20 02/04/20 Range/Units 03:50 03:50 06:12 Lymphocytes # (1.0-4.8) k/uL Chloride 115 H (98-107) mmol/L BUN 27 H (9-20) mg/dL Glucose 110 H (74-99) mg/dL POC Glucose (mg/dL) 122 H (75-99) mg/dL Ferritin 752.9 H (22.0-322.0) ng/mL CK-MB (CK-2) 6.9 H (0.0-2.4) ng/mL C-Reactive Protein 77.1 H (<10.0) mg/L Total Protein 5.2 L (6.3-8.2) g/dL Albumin 2.4 L (3.5-5.0) g/dL 02/04/20 Range/Units 12:09 Lymphocytes # (1.0-4.8) k/uL Chloride (98-107) mmol/L BUN (9-20) mg/dL Glucose (74-99) mg/dL POC Glucose (mg/dL) 116 H (75-99) mg/dL Ferritin (22.0-322.0) ng/mL CK-MB (CK-2) (0.0-2.4) ng/mL C-Reactive Protein (<10.0) mg/L Total Protein (6.3-8.2) g/dL Albumin (3.5-5.0) g/dL Microbiology - Last 24 Hours (Table) 01/28/20 18:40 Blood Culture - Final Blood No Growth after 144 hours 02/02/20 15:21 Blood Culture - Preliminary Blood No Growth after 24 hours Assessment and Plan Plan: #1. Acute hypoxemic respiratory failure secondary to COVID 19 pneumonitis with underlying chronic interstitial fibrosis and COPD, currently on Decadron and the patient completed the course of Remdesivir and receives transfusion with 1 unit of convalescent plasma on 02/01/2020 #2. Altered mental status, likely related to metabolic encephalopathy, related to severe hypoxemia, fever, related to acute Covid 19 pneumonia, consider the possibility of an embolic phenomena probably induced by his atrial fibrillation in addition to hypercoagulability induced by Covid 19 infection. A neurologic consultation will be obtained. Unable to do a CAT scan of the brain because of his been extremely borderline pulmonary status. The patient was started on Precedex to control her agitation the patient's overall agitation is improved while being on Precedex. No focal neurological deficits. #3. Elevated inflammatory markers, increased d-dimer related to acute Covid 19 related infection, that have actually trended up during his admission #4. Prior history of heavy tobacco dependence #5. Diabetes mellitus #6. History of shingles #7. Hyperlipidemia #8. Hypertension #9 atrial fibrillation, rate is controlled at this point in time the patient is on a Cardizem drip at 10 mg an hour. The patient is also on Lovenox therapeutic doses. Plan Keep the patient in intensive care unit Continue IV Decadron 6 mg on a daily basis and the patient completed the course of Remdesivir and the patient received a unit of convalescent plasma The patient will be kept on high flow oxygen in addition to 100% nonrebreather facemask Continue Cardizem drip at 10 mg an hour Changes a Lovenox dose of 100 milligrams subcu every 12 hours Neurologic consultation was obtained and the patient was started on Keppra CODE STATUS is no CPR or defibrillation. DO NOT INTUBATE CODE STATUS was also requested by family Condition is critical. We'll continue to follow. Condition is critical we'll continue to follow. This evaluation was done and more than 30 minutes. Time with Patient: Greater than 30
[2020-02-04 18:04] LABS: Glucose,Whole Blood 130 mg/dL (75-99)
[2020-02-04] MEDS: MELATONIN 5 MG TABLET PO SCH (20:24)
[2020-02-04] MEDS: ATORVASTATIN 40 MG TAB PO SCH (20:24)
[2020-02-04 23:53] LABS: Glucose,Whole Blood 109 mg/dL (75-99)
[2020-02-05 00:41] LABS: Glucose,Whole Blood 96 mg/dL (75-99)
[2020-02-05] MEDS: INSULIN ASPART (NovoLOG) 100 UNIT/ML VIAL SQ SCH ×5 (02:19→23:50)
[2020-02-05] MEDS: SODIUM CHLORIDE 0.9% 1,000 ML IV SCH ×2 (02:19→14:50)
[2020-02-05] MEDS: DEXMEDETOMIDINE/0.9% NACL(PMX) 400 MCG in EMPTY BAG 1 BAG IV SCH ×5 (02:32→23:28)
[2020-02-05] MEDS: DILTIAZEM 125 MG in SODIUM CHLORIDE 0.9% 100 ML IV SCH ×3 (02:48→22:42)
[2020-02-05 04:49] LABS: Basophils % (A) 0 %; Eosinophils % (A) 0 %; HCT 42.6 % (39.0-53.0); HGB 14.1 gm/dL (13.0-17.5); Lymphocytes # (A) 0.3 k/uL (1.0-4.8); Lymphocytes % (A) 3 %; MCV 84.9 fL (80.0-100.0); Mean Platelet Volume 7.5; Monocytes # (A) 0.8 k/uL (0-1.0); Monocytes % (A) 9 %; Neutrophils # (A) 7.7 k/uL (1.3-7.7); Neutrophils % (A) 86 %; Platelet Count 332 k/uL (150-450); RBC 5.02 m/uL (4.30-5.90); RDW 13.4 % (11.5-15.5)
[2020-02-05 05:11] LABS: ALT 27 U/L (4-49); AST 31 U/L (17-59); African American GFR (CKD) >90 (>60 ml/min/1.73 sqM); Albumin 2.3 g/dL (3.5-5.0); Alkaline Phosphatase 75 U/L (38-126); Anion Gap 4 mmol/L; Blood Urea Nitrogen 27 mg/dL (9-20); C Reactive Protein 45.9 mg/L (<10.0); Calcium 8.7 mg/dL (8.4-10.2); Carbon Dioxide 24 mmol/L (22-30); Chloride 115 mmol/L (98-107); Glucose 103 mg/dL (74-99); Magnesium 2.1 mg/dL (1.6-2.3); Non-African American GFR(CKD) 85 (>60 ml/min/1.73 sqM); Potassium 4.6 mmol/L (3.5-5.1); Sodium 143 mmol/L (137-145); Total Bilirubin 0.8 mg/dL (0.2-1.3); Total Protein 5.2 g/dL (6.3-8.2)
[2020-02-05 07:12] LABS: Glucose,Whole Blood 93 mg/dL (75-99)
--- NOTE | 2020-02-05 07:41 | XR ---
EXAMINATION TYPE: XR chest 1V portable DATE OF EXAM: 02/05/2020 HISTORY: Shortness of breath. COMPARISON: 02/04/2020 TECHNIQUE: Single view of the chest is submitted. FINDINGS: Demonstrated are scattered senescent parenchymal change. Diffuse bilateral infiltrates persist without significant change. The heart is stable. Hilar and mediastinal structures are within normal limits. Degenerative changes are seen of the dorsal spine. IMPRESSION: 1. Diffuse bilateral infiltrates persist without significant change.
[2020-02-05] MEDS: ALBUTEROL HFA INHALER INHALATION PRN (08:17)
[2020-02-05] MEDS: ENOXAPARIN 100 MG/ML SYRINGE SQ SCH ×2 (08:46→20:08)
[2020-02-05] MEDS: levETIRAcetam IV 500 MG in SODIUM CHLORIDE 0.9% 100 ML IVPB SCH (08:46)
[2020-02-05] MEDS: FAMOTIDINE 20 MG/2 ML VIAL IV SCH ×2 (08:46→20:08)
[2020-02-05] MEDS: DEXAMETHASONE SOD PHOSPHATE 10 MG/ML 1 ML VIAL IV SCH (08:46)
[2020-02-05] MEDS: TAMSULOSIN 0.4 MG CAP.ER.24H PO SCH (08:47)
[2020-02-05] MEDS: ASCORBIC ACID 500 MG TAB PO SCH (08:47)
[2020-02-05] MEDS: FLUTICASONE 50MCG/SPRAY NASAL 16GM EA NOSTRIL SCH (08:47)
[2020-02-05] MEDS: LOSARTAN 50 MG TAB PO SCH (08:47)
[2020-02-05] MEDS: ZINC SULFATE 220 MG CAP PO SCH (08:47)
[2020-02-05] MEDS: CHOLECALCIFEROL 1,000 UNIT TAB PO SCH (08:47)
[2020-02-05] MEDS: ASPIRIN 81 MG PO SCH (08:47)
[2020-02-05 09:40] LABS: Ferritin 965.5 ng/mL (22.0-322.0)
--- NOTE | 2020-02-05 11:41 | P.PN ---
Subjective Progress Note Date: 02/05/20 No acute events overnight reported by nursing staff. Patient is very confused and encephalopathic. He is maintained on Precedex. He still requiring nonrebreather with 100% FiO2. Objective - Vital Signs Vital signs: Vital Signs Temp 98.6 F 02/05/20 08:00 Pulse 111 H 02/05/20 11:00 Resp 31 H 02/05/20 11:00 BP 139/79 02/05/20 11:00 Pulse Ox 89 L 02/05/20 11:32 Intake & Output 02/04/20 02/05/20 02/05/20 18:59 06:59 18:59 Intake Total 1283.768 963.565 595.939 Output Total 1200 850 375 Balance 83.768 113.565 220.939 Weight 109.3 kg Intake: IV 1000 905 375 Sodium Chloride 0.9% 1, 900 900 375 000 ml @ 75 mls/hr IV . [id number] [facility] Rx#:[id number] cardizem 100 5 Intake, IV Titration 283.768 58.565 220.939 Amount Dexmedetomidine/0.9% NaCl 78.352 21.648 90.314 (Pmx) 400 mcg In Empty Bag 1 bag @ Titrate IV . Q0M [facility] Rx#:[id number] Diltiazem 125 mg In 205.416 36.917 30.625 Sodium Chloride 0.9% 100 ml @ 10 MG/HR 10 mls/hr IV .[id number] [facility] Rx#: [id number] levETIRAcetam IV 500 mg 100 In Sodium Chloride 0.9% 100 ml @ 400 mls/hr IVPB DAILY [facility] Rx#:[id number] Output: Urine 1200 850 375 Other: Voiding Method Indwelling Catheter Indwelling Catheter Indwelling Catheter # Bowel Movements 0 0 - Exam General: The patient is confused and encephalopathic Eye: there is normal conjunctiva bilaterally. Neck: The neck is supple, there is no JVD. Cardiovascular: Normal S1-S2, no S3-S4, no murmurs. Respiratory: Lungs with diffuse rhonchi to anterior chest auscultation Gastrointestinal: Abdomen is soft, nontender Musculoskeletal: There is no pedal edema. Skin: Skin is warm and dry - Labs CBC & Chem 7: 02/05/20 04:09 02/05/20 04:09 Labs: Abnormal Lab Results - Last 24 Hours (Table) 02/04/20 02/04/20 02/04/20 Range/Units 03:50 12:09 17:56 Lymphocytes # (1.0-4.8) k/uL D-Dimer (<0.60) mg/L FEU Chloride (98-107) mmol/L BUN (9-20) mg/dL Glucose (74-99) mg/dL POC Glucose (mg/dL) 116 H 130 H (75-99) mg/dL Ferritin (22.0-322.0) ng/mL CK-MB (CK-2) (0.0-2.4) ng/mL C-Reactive Protein (<10.0) mg/L Total Protein (6.3-8.2) g/dL Albumin (3.5-5.0) g/dL Procalcitonin 0.10 H (0.02-0.09) ng/mL 02/04/20 02/05/20 02/05/20 Range/Units 23:51 04:09 04:09 Lymphocytes # 0.3 L (1.0-4.8) k/uL D-Dimer (<0.60) mg/L FEU Chloride 115 H (98-107) mmol/L BUN 27 H (9-20) mg/dL Glucose 103 H (74-99) mg/dL POC Glucose (mg/dL) 109 H (75-99) mg/dL Ferritin 965.5 H (22.0-322.0) ng/mL CK-MB (CK-2) (0.0-2.4) ng/mL C-Reactive Protein 45.9 H (<10.0) mg/L Total Protein 5.2 L (6.3-8.2) g/dL Albumin 2.3 L (3.5-5.0) g/dL Procalcitonin (0.02-0.09) ng/mL 02/05/20 02/05/20 Range/Units 04:09 04:09 Lymphocytes # (1.0-4.8) k/uL D-Dimer 5.03 H (<0.60) mg/L FEU Chloride (98-107) mmol/L BUN (9-20) mg/dL Glucose (74-99) mg/dL POC Glucose (mg/dL) (75-99) mg/dL Ferritin (22.0-322.0) ng/mL CK-MB (CK-2) 4.3 H (0.0-2.4) ng/mL C-Reactive Protein (<10.0) mg/L Total Protein (6.3-8.2) g/dL Albumin (3.5-5.0) g/dL Procalcitonin (0.02-0.09) ng/mL Microbiology - Last 24 Hours (Table) 02/02/20 15:21 Blood Culture - Preliminary Blood No Growth after 48 hours Assessment and Plan Assessment: COVID 19 pneumonitis with acute hypoxic respiratory failure -Dexamethasone, zinc, vitamin C, vitamin D, Pepcid, melatonin -Pulmonary recommendations: Remedesivir course finished 02/01, s/p convalesent plasma 01/31 -Follow COVID markers -Follow chest x-ray -Wean O2 as able Rigidity - Resolved - CPK ok - Hold tegretol (on for bipolar depression per ). - neuro consulted, appreciate recommendation COPD without acute exacerbation -Continue with albuterol, Spiriva, and Symbicort -Pulmonary recommendations -Pulmonary hygiene Metabolic encephalopathy -Supportive care -Frequent reorientation Diabetes mellitus type 2 -Metformin on hold -Sliding-scale insulin -Blood sugars controlled -Hemoglobin A1c 6.6 Urinary retention with penile implant -Flomax Dyslipidemia -Statin therapy Hypertension -Continue with Cozaar, hold hydrochlorothiazide -Follow blood pressures Prognosis Guarded. Family considering comfort care. Discussed with [employer] plan to continue supportive care for another day and possibly comfort care tomorrow DVT prophylaxis: lovenox bid Discussed with: nursing Anticipated discharge: Too early to tell Anticipated discharge place: Too early to tell A total of 35 minutes was spent on the care of this complex patient more than 50% of the time was spent in counseling and care coordination.
[2020-02-05 12:45] LABS: Glucose,Whole Blood 105 mg/dL (75-99)
--- NOTE | 2020-02-05 16:17 | P.PN ---
Subjective Progress Note Date: 02/05/20 The patient is seen today 01/30/2020 in follow-up on the selective care unit. He was brought into the emergency room yesterday via EMS with platelets of shortness of breath cough and congestion. He is a poor historian. His states they were both recently tested positive for COVID 19. His test was at least 7 days prior to his arrival. He does have a history of underlying COPD, hypertension, hyperlipidemia. He was quite hypoxemic on arrival. He is currently on AirVo at 60 L and 80% FiO2 to maintain O2 saturations in the 90s. CT angiogram ruled out pulmonary embolism. There is noted extensive pulmonary infiltrates consistent with pulmonary fibrosis and some superimposed mild pneumonia and atelectasis of the posterior lung bases. Pulmonary emphysema. He was initiated on Remdesivir yesterday. He is currently afebrile. White count 4.6. Hemoglobin 14.9. D-dimer 1.71. Sodium 138. Potassium 4.4. Creatinine 1.04. Ferritin 849. LDH 732. C-reactive protein 34. He remains on vitamin C, vitamin D, dexamethasone, melatonin, zinc, Lovenox. He is on bronchodilators. On 01/31/2020 patient seen in follow-up on the selective care unit, patient was found to be positive for COVID 19, this is a day two of Remdesivir, remains on high flow oxygen,via Airvo at 60 l/min, Fio2 81%, and pulse ox is 97-98%, he is confused, but appears to be in no acute respiratory distress, at times he has a congested cough, not bringing up much sputum, blood and was seen and is infusing at 75 ML per hour. T-max is 99.3F, hemodynamically stable, denies any chest pain, today's chest x-ray showing bilateral airspace disease, with a background of emphysematous changes. CRP is relatively stable, currently at 43.5, LDH is trending down, down to 697, calcitonin 0.11, damage decreasing, at 1.4. Blood culture is negative at the 48 hour jelani. Lymphopenia continues, with the lymphocyte count is 0.4, white count is 4.2, hemoglobin is 13.7. Denies any fever or chills, no chest pain. No nausea or vomiting. On 02/01/2020 patient seen in follow-up on the selective care unit, patient was admitted with Covid 19 related to pneumonia, he continues on Remdesivir, today is day three. Still requiring high flow oxygen at 60 l/min, Fio2 84%, pulse ox of 91-93%. Continues to be febrile, low-grade fevers, with a T-max of 100.2F. Continues on bronchodilators, he is on Lovenox prophylactically, gentle IV hydration continues with 0.9 normal saline at a rate is 75 ML per hour. he continues on oral Decadron. Today d-dimer is 3.20, is increased from 1.2. On 02/02/2020 patient seen in follow-up on selective care unit, patient is Covid positive pneumonia, remains on high flow oxygen per Airvo at 81%, 60 L/m, in addition to 100% nonrebreather, with a pulse ox of 96%, patient has been febrile . Patient is very confused, his lethargic, he does arouse and respond, no unilateral weakness, patient is moving all 4 extremities, no facial asymmetry, no unilateral weakness. Patient has been self proning, he is very weak, continues on Remdesivir, he status post 1 unit of convalescent plasma, he is on oral Decadron, which we will switch to IV as the patient's mental status is more altered today. He is on Lovenox at 50 mg twice daily, his last d-dimer was yesterday with a value of 3.84. Remains lymphopenic, his lymphocyte count is down to 0.1, his CRP has actually went up to 134.5, LDH of 833. Patient is febrile, blood pressure is 114/65, status post labs were sent, blood cultures, urinalysis, urine culture, lactic acid, in view of patient's worsening status we will transfer the patient to the intensive care unit On 02/03/2020, the patient is currently in the intensive care unit. The patient is currently struggling from coronavirus Covid 19 related pneumonia. He remains quite confused and lethargic. At times agitated. At times he moans. He is able to sometimes say his name. However, not following any commands and he is unable to hold a conversation at this point in time. The patient is currently on 100% nonrebreather facemask and the patient is also on high flow oxygen 60 L per minute with an FiO2 of 80% with a pulse ox of 92%. Chest x-ray shows dense bilateral pulmonary infiltrates most on the left. The triple-lumen catheter was essentially his left IJ today. IV fluids are running at 75 mL an hour. He remains in atrial fibrillation. Cardizem drip is running at 10 mg an hour. He is afebrile. I was quite concerned about his altered mentation. Exact reason for that is not clear. Could be viral induced. I have consulted neurology in this regard. Unable to do the CAT scan as the patient is quite unstable and restless to be taken to a CAT scan machine for further investigation. Would like to get a neurology input at this point in time. His blood work shows a white cell count 7.1. His d-dimer is at 7.1. His ferritin level is at 7 was 3. CRP is at 161. The rest of the electrodes are all within normal limits. For now, the patient is still being treated with a combination of Decadron and he received a unit of convalescent plasma and he completed his course of Remdesivir yesterday. His Tegretol level is at 4.5. He is also on Lovenox at a dose of 50 mg subcu every 12 hours. I'm going to increase in creatinine therapy dose of Levaquin especially with his underlying atrial fibrillation. On 02/04/2020, the patient is still in the intensive care unit. The patient is being seen for a follow-up today. The patient remains confused and encephalopathic. He has required several doses of Haldol and I made recommendations to start Precedex drip to control the agitation as the patient's agitation becomes an ongoing issue. I think he was started on Precedex at a dose of 0.25 mg/kg/m. The patient is currently suffering from a Covid 19 related pneumonia with acute hypoxic respiratory failure and diffuse but the pulmonary infiltrates secondary to pneumonia. The patient currently is on high flow oxygen at 60 L with an FiO2 of 80% and he is also utilizing 100% nonrebreather facemask. Pulse ox is in the low 90s. IV fluid is running at 75 mL an hour. The patient remains in atrial fibrillation. Cardizem drip is running a timely grams an hour. The patient is on a combination of Decadron Remdesivir and the patient also received a unit of convalescent plasma. The patient remains on Lovenox in lieu of the 100 mg subcu every 12 hours. The patient was seen by neurology. There was a concern of Tegretol withdrawal syndromes and the patient was started on Keppra per neurology recommendations. White cell count of 7.7. In terms of inflammatory markers, CRP is at 77, the patient's LFTs are within normal limits, ferritin is at 752. Renal function is stable. 02/05/2020 the patient is still in the intensive care unit. Lethargic, confused, somnolent, agitated, nevertheless his condition is well-controlled with a Precedex drip which is currently running at 0.5 mg per KG per minute. The patient moans. He is restless. His movement is nonpurposeful. He is not following any commands. If left alone and unattended, the patient was easily pulled on his oxygen source. Currently is being supplemented with a high flow oxygen 60 L with an FiO2 of 92% and the patient is also on 100% nonrebreather facemask.. The patient is also in atrial fibrillation. Cardizem in running at 10 mg an hour. Normal saline is running at a rate of 75 mL an hour. The patient remains on Decadron 6 mg IV push. The patient has completed his course of Remdesivir and the patient also received convalescent plasma. Repeat chest x-ray shows diffuse bilateral pulmonary infiltrates in the patient has a CRP of 45.9 and a ferritin level of 965. Note that the CRP level is lower. The ferritin level is higher compared to yesterday. Renal function stable. Creatinine 0.7. Rest of the electrodes are all within normal limits. The gilma ent is a DNR/DNI CODE STATUS. I elected discussion with the . Apparently the patient had moved recently to [place] and after explaining to the the ongoing issues with the patient, she has consented for a DNR/DNI CODE STATUS. This was established yesterday. As such, the patient will be kept on high flow oxygen in addition to 100% nonrebreather and no intubation will be performed. Objective - Vital Signs Vital signs: Vital Signs Temp 99.0 F 02/05/20 12:00 Pulse 87 02/05/20 12:00 Resp 35 H 02/05/20 12:00 BP 125/76 02/05/20 12:00 Pulse Ox 95 02/05/20 15:50 Intake & Output 02/04/20 02/05/20 02/05/20 18:59 06:59 18:59 Intake Total 1283.768 963.565 859.439 Output Total 1200 850 725 Balance 83.768 113.565 134.439 Weight 109.3 kg Intake: IV 1000 905 600 Sodium Chloride 0.9% 1, 900 900 600 000 ml @ 75 mls/hr IV . [id number] EMI Rx#:[id number] cardizem 100 5 Intake, IV Titration 283.768 58.565 259.439 Amount Dexmedetomidine/0.9% NaCl 78.352 21.648 90.314 (Pmx) 400 mcg In Empty Bag 1 bag @ Titrate IV . Q0M EMI Rx#:[id number] Diltiazem 125 mg In 205.416 36.917 69.125 Sodium Chloride 0.9% 100 ml @ 10 MG/HR 10 mls/hr IV .[id number] EMI Rx#: [id number] levETIRAcetam IV 500 mg 100 In Sodium Chloride 0.9% 100 ml @ 400 mls/hr IVPB DAILY EMI Rx#:[id number] Output: Urine 1200 850 725 Other: Voiding Method Indwelling Catheter Indwelling Catheter Indwelling Catheter # Bowel Movements 0 0 - Exam GENERAL EXAM: Drowsy, confused, febrile 84-year-old white male, on high flow oxygen per Airvo at 60 l/min, in addition to 100% nonrebreather Fio2 81% of the pulse ox between 91%, does not appear to be in respiratory distress, however mentation is altered, patient is more drowsy and confused and unresponsive and at times agitated. The patient seems to be more comfortable while being on a Precedex drip which is essentially controlling his agitation. HEAD: Normocephalic/atraumatic. EYES: Normal reaction of pupils, equal size. Conjunctiva pink, sclera white. NOSE: Clear with pink turbinates. THROAT: No erythema or exudates. NECK: No masses, no JVD, no thyroid enlargement, no adenopathy. CHEST: No chest wall deformity. Symmetrical expansion. LUNGS: Equal air entry with no crackles, wheeze, rhonchi or dullness. CVS: Regular rate and rhythm, normal S1 and S2, no gallops, no murmurs, no rubs ABDOMEN: Soft, nontender. No hepatosplenomegaly, normal bowel sounds, no guarding or rigidity. EXTREMITIES: No clubbing, no edema, no cyanosis, 2+ pulses and upper and lower extremities. MUSCULOSKELETAL: Muscle strength and tone normal. SPINE: No scoliosis or deformity SKIN: No rashes CENTRAL NERVOUS SYSTEM: Drowsy, confused No focal deficits, tone is normal in all 4 extremities. The patient's speech is garbled. Is encephalopathic. He is unable to hold a conversation. At times he states few words which are clearly not understandable. He is unable to follow any commands. He senses painful stimulation and he withdraws and he gets agitated quite easily and he moans. No seizure activity has been noted. His neck is not stiff. The patient's agit ation is improved while the patient is on Precedex. Neurologist on the case. - Labs CBC & Chem 7: 02/05/20 04:09 02/05/20 04:09 Labs: Abnormal Lab Results - Last 24 Hours (Table) 02/04/20 02/04/20 02/04/20 Range/Units 03:50 17:56 23:51 Lymphocytes # (1.0-4.8) k/uL D-Dimer (<0.60) mg/L FEU Chloride (98-107) mmol/L BUN (9-20) mg/dL Glucose (74-99) mg/dL POC Glucose (mg/dL) 130 H 109 H (75-99) mg/dL Ferritin (22.0-322.0) ng/mL CK-MB (CK-2) (0.0-2.4) ng/mL C-Reactive Protein (<10.0) mg/L Total Protein (6.3-8.2) g/dL Albumin (3.5-5.0) g/dL Procalcitonin 0.10 H (0.02-0.09) ng/mL 02/05/20 02/05/20 02/05/20 Range/Units 04:09 04:09 04:09 Lymphocytes # 0.3 L (1.0-4.8) k/uL D-Dimer 5.03 H (<0.60) mg/L FEU Chloride 115 H (98-107) mmol/L BUN 27 H (9-20) mg/dL Glucose 103 H (74-99) mg/dL POC Glucose (mg/dL) (75-99) mg/dL Ferritin 965.5 H (22.0-322.0) ng/mL CK-MB (CK-2) (0.0-2.4) ng/mL C-Reactive Protein 45.9 H (<10.0) mg/L Total Protein 5.2 L (6.3-8.2) g/dL Albumin 2.3 L (3.5-5.0) g/dL Procalcitonin (0.02-0.09) ng/mL 02/05/20 02/05/20 Range/Units 04:09 12:33 Lymphocytes # (1.0-4.8) k/uL D-Dimer (<0.60) mg/L FEU Chloride (98-107) mmol/L BUN (9-20) mg/dL Glucose (74-99) mg/dL POC Glucose (mg/dL) 105 H (75-99) mg/dL Ferritin (22.0-322.0) ng/mL CK-MB (CK-2) 4.3 H (0.0-2.4) ng/mL C-Reactive Protein (<10.0) mg/L Total Protein (6.3-8.2) g/dL Albumin (3.5-5.0) g/dL Procalcitonin (0.02-0.09) ng/mL Microbiology - Last 24 Hours (Table) 02/02/20 15:21 Blood Culture - Preliminary Blood No Growth after 48 hours Assessment and Plan Plan: #1. Acute hypoxemic respiratory failure secondary to COVID 19 pneumonitis with underlying chronic interstitial fibrosis and COPD, currently on Decadron and the patient completed the course of Remdesivir and receives transfusion with 1 unit of convalescent plasma on 02/01/2020. The patient continues to be on high flow oxygen setting and 60 L in addition to 100% nonrebreather facemask. The chest x-ray showing diffuse breath and pulmonary infiltrates that are persistent without any significant change compared to yesterday. Overall pulmonary status remains unchanged compared to yesterday. He has a DNR/DNI CODE STATUS. #2. Altered mental status, likely related to metabolic encephalopathy, related to severe hypoxemia, fever, related to acute Covid 19 pneumonia, consider the possibility of an embolic phenomena probably induced by his atrial fibrillation in addition to hypercoagulability induced by Covid 19 infection. A neurologic consultation will be obtained. Unable to do a CAT scan of the brain because of his been extremely borderline pulmonary status. The patient was started on Precedex to control her agitation the patient's overall agitation is improved while being on Precedex. No focal neurological deficits. #3. Elevated inflammatory markers, increased d-dimer related to acute Covid 19 related infection, that have actually trended up during his admission. CRP level today is lower compared to yesterday. The levels are higher. #4. Prior history of heavy tobacco dependence #5. Diabetes mellitus #6. History of shingles #7. Hyperlipidemia #8. Hypertension #9 atrial fibrillation, rate is controlled at this point in time the patient is on a Cardizem drip at 10 mg an hour. The patient is also on Lovenox therapeutic doses. Plan Keep the patient in intensive care unit Continue IV Decadron 6 mg on a daily basis and the patient completed the course of Remdesivir and the patient received a unit of convalescent plasma The patient will be kept on high flow oxygen in addition to 100% nonrebreather facemask Continue Cardizem drip at 10 mg an hour Changes a Lovenox dose of 100 milligrams subcu every 12 hours Neurologic consultation was obtained and the patient was started on Keppra CODE STATUS is no CPR or defibrillation. DO NOT INTUBATE CODE STATUS was also requested by family. This was again confirmed based on my lengthy discussion of the head with the . We decided to treat this patient supportively here in the ICU for another 24-48 hours and monitor his outcome. The is considering comfort care measures if his condition decompensated.. Condition is critical we'll continue to follow. This evaluation was done and more than 30 minutes. Time with Patient: Greater than 30
[2020-02-05 16:34] LABS: LD Isoenzymes 1 25 % (19-38); LD Isoenzymes 2 38 % (30-43); LD Isoenzymes 3 18 % (16-26); LD Isoenzymes 4 7 % (3-12); LD Isoenzymes 5 12 % (3-14); Lactacte Dehydrogenase(LD) ISO 292 U/L (120-250)
[2020-02-05] MEDS: ATORVASTATIN 40 MG TAB PO SCH (20:03)
[2020-02-05] MEDS: MELATONIN 5 MG TABLET PO SCH (20:03)
[2020-02-05 23:28] LABS: Glucose,Whole Blood 109 mg/dL (75-99)
[2020-02-06] MEDS: SODIUM CHLORIDE 0.9% 1,000 ML IV SCH (03:13)
[2020-02-06] MEDS: DEXMEDETOMIDINE/0.9% NACL(PMX) 400 MCG in EMPTY BAG 1 BAG IV SCH ×2 (03:59→08:57)
[2020-02-06 05:29] LABS: Glucose,Whole Blood 112 mg/dL (75-99)
[2020-02-06] MEDS: INSULIN ASPART (NovoLOG) 100 UNIT/ML VIAL SQ SCH (05:36)
[2020-02-06 06:11] LABS: Basophils % (A) 0 %; Eosinophils % (A) 0 %; HCT 44.9 % (39.0-53.0); HGB 14.6 gm/dL (13.0-17.5); Lymphocytes # (A) 0.3 k/uL (1.0-4.8); Lymphocytes % (A) 3 %; MCHC 32.5 g/dL (31.0-37.0); MCV 86.2 fL (80.0-100.0); Mean Platelet Volume 7.3; Monocytes # (A) 0.8 k/uL (0-1.0); Monocytes % (A) 8 %; Neutrophils # (A) 9.4 k/uL (1.3-7.7); Neutrophils % (A) 88 %; Platelet Count 336 k/uL (150-450); RBC 5.21 m/uL (4.30-5.90); RDW 13.6 % (11.5-15.5); WBC 10.7 k/uL (3.8-10.6)
[2020-02-06 06:37] LABS: ALT 29 U/L (4-49); AST 29 U/L (17-59); African American GFR (CKD) >90 (>60 ml/min/1.73 sqM); Albumin 2.6 g/dL (3.5-5.0); Alkaline Phosphatase 85 U/L (38-126); Anion Gap 4 mmol/L; Blood Urea Nitrogen 26 mg/dL (9-20); Calcium 8.8 mg/dL (8.4-10.2); Carbon Dioxide 27 mmol/L (22-30); Chloride 114 mmol/L (98-107); Glucose 118 mg/dL (74-99); Non-African American GFR(CKD) 85 (>60 ml/min/1.73 sqM); Potassium 4.8 mmol/L (3.5-5.1); Sodium 145 mmol/L (137-145); Total Bilirubin 0.9 mg/dL (0.2-1.3); Total Protein 5.7 g/dL (6.3-8.2)
--- NOTE | 2020-02-06 07:31 | XR ---
EXAMINATION TYPE: XR chest 1V portable DATE OF EXAM: 02/06/2020 COMPARISON: 02/05/2020 HISTORY: Shortness of breath TECHNIQUE: Single frontal view of the chest is obtained. FINDINGS: Central line seen with underlying COPD and bilateral areas of alveolar and interstitial in filtrate. Small bilateral effusions. No sizable pneumothorax. Underlying neoplastic process in the le ft lung not excluded IMPRESSION: 1. Diffuse bilateral infiltrates are stable.
[2020-02-06] MEDS: FLUTICASONE 50MCG/SPRAY NASAL 16GM EA NOSTRIL SCH (08:52)
[2020-02-06] MEDS: ASPIRIN 81 MG PO SCH (08:52)
[2020-02-06] MEDS: TAMSULOSIN 0.4 MG CAP.ER.24H PO SCH (08:52)
[2020-02-06] MEDS: LOSARTAN 50 MG TAB PO SCH (08:52)
[2020-02-06] MEDS: ASCORBIC ACID 500 MG TAB PO SCH (08:52)
[2020-02-06] MEDS: CHOLECALCIFEROL 1,000 UNIT TAB PO SCH (08:52)
[2020-02-06] MEDS: ZINC SULFATE 220 MG CAP PO SCH (08:53)
[2020-02-06] MEDS: ENOXAPARIN 100 MG/ML SYRINGE SQ SCH (08:57)
[2020-02-06] MEDS: levETIRAcetam IV 500 MG in SODIUM CHLORIDE 0.9% 100 ML IVPB SCH (08:58)
[2020-02-06] MEDS: DEXAMETHASONE SOD PHOSPHATE 10 MG/ML 1 ML VIAL IV SCH (08:58)
[2020-02-06] MEDS: FAMOTIDINE 20 MG/2 ML VIAL IV SCH (08:58)
[2020-02-06] MEDS ORDERED: ATROPINE OPHTH SOLN 1% 5ML BTL SUBLINGUAL PRN (10:06)
[2020-02-06] MEDS ORDERED: MORPHINE SULFATE 4 MG/ML SYRINGE IV PRN (10:06)
[2020-02-06 10:13] VITALS: TEMP 99.1
[2020-02-06] MEDS ORDERED: MORPHINE SULFATE (100 MG/2 ML) 100 MG in SODIUM CHLORIDE 0.9% 100 ML IV SCH (10:15)
[2020-02-06] MEDS ORDERED: SCOPOLAMINE 1.5MG/72HR PATCH TRANSDERM SCH (10:30)
--- NOTE | 2020-02-06 13:51 | P.PN ---
Subjective Progress Note Date: 02/06/20 No acute events overnight reported by nursing staff. Patient is very encephalopathic. He is maintained on Precedex. He still requiring nonrebreather with 100% FiO2. Objective - Vital Signs Vital signs: Vital Signs Temp 99.1 F 02/06/20 08:00 Pulse 72 02/06/20 10:00 Resp 14 02/06/20 10:00 BP 111/58 02/06/20 10:00 Pulse Ox 85 L 02/06/20 10:00 Intake & Output 02/05/20 02/06/20 02/06/20 18:59 06:59 18:59 Intake Total 3212.974 3030.548 605.882 Output Total 915 775 190 Balance 244.439 550.548 415.882 Weight 107.4 kg Intake: IV 900 900 300 Sodium Chloride 0.9% 1, 900 900 300 000 ml @ 75 mls/hr IV . [id number] EMI Rx#:[id number] Intake, IV Titration 259.439 425.548 305.882 Amount Dexmedetomidine/0.9% NaCl 90.314 100 (Pmx) 400 mcg In Empty Bag 1 bag @ Titrate IV . Q0M EMI Rx#:[id number] Dexmedetomidine/0.9% NaCl 271.965 100 (Pmx) 400 mcg In Empty Bag 1 bag @ Titrate IV . Q0M EMI Rx#:[id number] Diltiazem 125 mg In 69.125 153.583 Sodium Chloride 0.9% 100 ml @ 10 MG/HR 10 mls/hr IV .[id number] EMI Rx#: [id number] Morphine Sulfate (100 mg/ 5.882 2 ml) 100 mg In Sodium Chloride 0.9% 100 ml @ 1 MG/HR 1.02 mls/hr IV . Q24H EMI Rx#:[id number] levETIRAcetam IV 500 mg 100 100 In Sodium Chloride 0.9% 100 ml @ 400 mls/hr IVPB DAILY EMI Rx#:[id number] Output: Urine 915 775 190 Other: Voiding Method Indwelling Catheter Indwelling Catheter Indwelling Catheter # Bowel Movements 0 - Exam General: The patient is confused and encephalopathic Eye: there is normal conjunctiva bilaterally. Neck: The neck is supple, there is no JVD. Cardiovascular: Normal S1-S2, no S3-S4, no murmurs. Respiratory: Lungs with diffuse rhonchi to anterior chest auscultation Gastrointestinal: Abdomen is soft, nontender Musculoskeletal: There is no pedal edema. Skin: Skin is warm and dry - Labs CBC & Chem 7: 02/06/20 06:00 02/06/20 06:00 Labs: Abnormal Lab Results - Last 24 Hours (Table) 02/03/20 02/05/20 02/06/20 Range/Units 04:12 23:27 05:28 WBC (3.8-10.6) k/uL Neutrophils # (1.3-7.7) k/uL Lymphocytes # (1.0-4.8) k/uL Chloride (98-107) mmol/L BUN (9-20) mg/dL Glucose (74-99) mg/dL POC Glucose (mg/dL) 109 H 112 H (75-99) mg/dL LD Isoenzymes 292 H (120-250) U/L CK-MB (CK-2) (0.0-2.4) ng/mL C-Reactive Protein (<10.0) mg/L Total Protein (6.3-8.2) g/dL Albumin (3.5-5.0) g/dL 02/06/20 02/06/20 02/06/20 Range/Units 06:00 06:00 06:00 WBC 10.7 H (3.8-10.6) k/uL Neutrophils # 9.4 H (1.3-7.7) k/uL Lymphocytes # 0.3 L (1.0-4.8) k/uL Chloride 114 H (98-107) mmol/L BUN 26 H (9-20) mg/dL Glucose 118 H (74-99) mg/dL POC Glucose (mg/dL) (75-99) mg/dL LD Isoenzymes (120-250) U/L CK-MB (CK-2) 3.1 H (0.0-2.4) ng/mL C-Reactive Protein 45.0 H (<10.0) mg/L Total Protein 5.7 L (6.3-8.2) g/dL Albumin 2.6 L (3.5-5.0) g/dL Microbiology - Last 24 Hours (Table) 02/02/20 15:21 Blood Culture - Preliminary Blood No Growth after 72 hours Assessment and Plan Assessment: Plan to start comfort care today. Goals of care discussed with the patient's family by the diesel maintenance technician. There was a list of his medical problems addressed during this hospitalization. COVID 19 pneumonitis with acute hypoxic respiratory failure -Dexamethasone, zinc, vitamin C, vitamin D, Pepcid, melatonin -Pulmonary recommendations: Remedesivir course finished 02/01, s/p convalesent plasma 01/31 -Follow COVID markers -Follow chest x-ray -Wean O2 as able Rigidity - Resolved - CPK ok - Hold tegretol (on for bipolar depression per ). - neuro consulted, appreciate recommendation COPD without acute exacerbation -Continue with albuterol, Spiriva, and Symbicort -Pulmonary recommendations -Pulmonary hygiene Metabolic encephalopathy -Supportive care -Frequent reorientation Diabetes mellitus type 2 -Metformin on hold -Sliding-scale insulin -Blood sugars controlled -Hemoglobin A1c 6.6 Urinary retention with penile implant -Flomax Dyslipidemia -Statin therapy Hypertension -Continue with Cozaar, hold hydrochlorothiazide -Follow blood pressures Prognosis Guarded.
[2020-02-06 14:35] VITALS: BP 90/44; PULSE 105; RESP 7
--- NOTE | 2020-02-06 15:12 | P.PN ---
Subjective Progress Note Date: 02/06/20 The patient is seen today 01/30/2020 in follow-up on the selective care unit. He was brought into the emergency room yesterday via EMS with platelets of shortness of breath cough and congestion. He is a poor historian. His states they were both recently tested positive for COVID 19. His test was at least 7 days prior to his arrival. He does have a history of underlying COPD, hypertension, hyperlipidemia. He was quite hypoxemic on arrival. He is currently on AirVo at 60 L and 80% FiO2 to maintain O2 saturations in the 90s. CT angiogram ruled out pulmonary embolism. There is noted extensive pulmonary infiltrates consistent with pulmonary fibrosis and some superimposed mild pneumonia and atelectasis of the posterior lung bases. Pulmonary emphysema. He was initiated on Remdesivir yesterday. He is currently afebrile. White count 4.6. Hemoglobin 14.9. D-dimer 1.71. Sodium 138. Potassium 4.4. Creatinine 1.04. Ferritin 849. LDH 732. C-reactive protein 34. He remains on vitamin C, vitamin D, dexamethasone, melatonin, zinc, Lovenox. He is on bronchodilators. On 01/31/2020 patient seen in follow-up on the selective care unit, patient was found to be positive for COVID 19, this is a day two of Remdesivir, remains on high flow oxygen,via Airvo at 60 l/min, Fio2 81%, and pulse ox is 97-98%, he is confused, but appears to be in no acute respiratory distress, at times he has a congested cough, not bringing up much sputum, blood and was seen and is infusing at 75 ML per hour. T-max is 99.3F, hemodynamically stable, denies any chest pain, today's chest x-ray showing bilateral airspace disease, with a background of emphysematous changes. CRP is relatively stable, currently at 43.5, LDH is trending down, down to 697, calcitonin 0.11, damage decreasing, at 1.4. Blood culture is negative at the 48 hour jelani. Lymphopenia continues, with the lymphocyte count is 0.4, white count is 4.2, hemoglobin is 13.7. Denies any fever or chills, no chest pain. No nausea or vomiting. On 02/01/2020 patient seen in follow-up on the selective care unit, patient was admitted with Covid 19 related to pneumonia, he continues on Remdesivir, today is day three. Still requiring high flow oxygen at 60 l/min, Fio2 84%, pulse ox of 91-93%. Continues to be febrile, low-grade fevers, with a T-max of 100.2F. Continues on bronchodilators, he is on Lovenox prophylactically, gentle IV hydration continues with 0.9 normal saline at a rate is 75 ML per hour. he continues on oral Decadron. Today d-dimer is 3.20, is increased from 1.2. On 02/02/2020 patient seen in follow-up on selective care unit, patient is Covid positive pneumonia, remains on high flow oxygen per Airvo at 81%, 60 L/m, in addition to 100% nonrebreather, with a pulse ox of 96%, patient has been febrile . Patient is very confused, his lethargic, he does arouse and respond, no unilateral weakness, patient is moving all 4 extremities, no facial asymmetry, no unilateral weakness. Patient has been self proning, he is very weak, continues on Remdesivir, he status post 1 unit of convalescent plasma, he is on oral Decadron, which we will switch to IV as the patient's mental status is more altered today. He is on Lovenox at 50 mg twice daily, his last d-dimer was yesterday with a value of 3.84. Remains lymphopenic, his lymphocyte count is down to 0.1, his CRP has actually went up to 134.5, LDH of 833. Patient is febrile, blood pressure is 114/65, status post labs were sent, blood cultures, urinalysis, urine culture, lactic acid, in view of patient's worsening status we will transfer the patient to the intensive care unit On 02/03/2020, the patient is currently in the intensive care unit. The patient is currently struggling from coronavirus Covid 19 related pneumonia. He remains quite confused and lethargic. At times agitated. At times he moans. He is able to sometimes say his name. However, not following any commands and he is unable to hold a conversation at this point in time. The patient is currently on 100% nonrebreather facemask and the patient is also on high flow oxygen 60 L per minute with an FiO2 of 80% with a pulse ox of 92%. Chest x-ray shows dense bilateral pulmonary infiltrates most on the left. The triple-lumen catheter was essentially his left IJ today. IV fluids are running at 75 mL an hour. He remains in atrial fibrillation. Cardizem drip is running at 10 mg an hour. He is afebrile. I was quite concerned about his altered mentation. Exact reason for that is not clear. Could be viral induced. I have consulted neurology in this regard. Unable to do the CAT scan as the patient is quite unstable and restless to be taken to a CAT scan machine for further investigation. Would like to get a neurology input at this point in time. His blood work shows a white cell count 7.1. His d-dimer is at 7.1. His ferritin level is at 7 was 3. CRP is at 161. The rest of the electrodes are all within normal limits. For now, the patient is still being treated with a combination of Decadron and he received a unit of convalescent plasma and he completed his course of Remdesivir yesterday. His Tegretol level is at 4.5. He is also on Lovenox at a dose of 50 mg subcu every 12 hours. I'm going to increase in creatinine therapy dose of Levaquin especially with his underlying atrial fibrillation. On 02/04/2020, the patient is still in the intensive care unit. The patient is being seen for a follow-up today. The patient remains confused and encephalopathic. He has required several doses of Haldol and I made recommendations to start Precedex drip to control the agitation as the patient's agitation becomes an ongoing issue. I think he was started on Precedex at a dose of 0.25 mg/kg/m. The patient is currently suffering from a Covid 19 related pneumonia with acute hypoxic respiratory failure and diffuse but the pulmonary infiltrates secondary to pneumonia. The patient currently is on high flow oxygen at 60 L with an FiO2 of 80% and he is also utilizing 100% nonrebreather facemask. Pulse ox is in the low 90s. IV fluid is running at 75 mL an hour. The patient remains in atrial fibrillation. Cardizem drip is running a timely grams an hour. The patient is on a combination of Decadron Remdesivir and the patient also received a unit of convalescent plasma. The patient remains on Lovenox in lieu of the 100 mg subcu every 12 hours. The patient was seen by neurology. There was a concern of Tegretol withdrawal syndromes and the patient was started on Keppra per neurology recommendations. White cell count of 7.7. In terms of inflammatory markers, CRP is at 77, the patient's LFTs are within normal limits, ferritin is at 752. Renal function is stable. 02/05/2020 the patient is still in the intensive care unit. Lethargic, confused, somnolent, agitated, nevertheless his condition is well-controlled with a Precedex drip which is currently running at 0.5 mg per KG per minute. The patient moans. He is restless. His movement is nonpurposeful. He is not following any commands. If left alone and unattended, the patient was easily pulled on his oxygen source. Currently is being supplemented with a high flow oxygen 60 L with an FiO2 of 92% and the patient is also on 100% nonrebreather facemask.. The patient is also in atrial fibrillation. Cardizem in running at 10 mg an hour. Normal saline is running at a rate of 75 mL an hour. The patient remains on Decadron 6 mg IV push. The patient has completed his course of Remdesivir and the patient also received convalescent plasma. Repeat chest x-ray shows diffuse bilateral pulmonary infiltrates in the patient has a CRP of 45.9 and a ferritin level of 965. Note that the CRP level is lower. The ferritin level is higher compared to yesterday. Renal function stable. Creatinine 0.7. Rest of the electrodes are all within normal limits. The gilma ent is a DNR/DNI CODE STATUS. I elected discussion with the . Apparently the patient had moved recently to [place] and after explaining to the the ongoing issues with the patient, she has consented for a DNR/DNI CODE STATUS. This was established yesterday. As such, the patient will be kept on high flow oxygen in addition to 100% nonrebreather and no intubation will be performed. 02/06/2020, the patient's condition essentially unchanged. He is unresponsive. While off the sedation, he gets quite agitated and restless and encephalopathic. Currently is on Precedex running at 0.8 mg per KG per minute. The patient is also normal state rate of 75 mL an hour. Urine output is order of 50 mL an hour. The patient is also receiving Cardizem at the rate of 10 mg an hour as the patient went into atrial fibrillation with rapid ventricular response. He is on high flow oxygen at 60 L with an FiO2 of 90%. He was taken off the 100% nonrebreather facemask. His pulse ox is in the low 90s. He remains extremely debilitated. He remains unresponsive. He remains tachypneic. He seems to be struggling with his breathing. WBC count is at 10.7 her hemoglobin 14.6. BUN is 26 with a creatinine of 0.7. Chest x-ray is showing diffuse breath and pulmonary infiltrates consistent with coronary vitals coronavirus ventilated pneumonia. No seizure activity has been noted. Family has been contacted. Updated the on his condition. Family opted to go and proceed with comfort care measures. Note that his CODE STATUS has been DO NOT RESUSCITATE/DO NOT INTUBATE. Objective - Vital Signs Vital signs: Vital Signs Temp 99.1 F 02/06/20 08:00 Pulse 105 H 02/06/20 13:00 Resp 7 L 02/06/20 13:00 BP 90/44 02/06/20 13:00 Pulse Ox 54 L 02/06/20 13:00 Intake & Output 02/05/20 02/06/20 02/06/20 18:59 06:59 18:59 Intake Total 3451.803 2374.548 605.882 Output Total 915 775 190 Balance 244.439 550.548 415.882 Weight 107.4 kg Intake: IV 900 900 300 Sodium Chloride 0.9% 1, 900 900 300 000 ml @ 75 mls/hr IV . [id number] EMI Rx#:[id number] Intake, IV Titration 259.439 425.548 305.882 Amount Dexmedetomidine/0.9% NaCl 90.314 100 (Pmx) 400 mcg In Empty Bag 1 bag @ Titrate IV . Q0M EMI Rx#:[id number] Dexmedetomidine/0.9% NaCl 271.965 100 (Pmx) 400 mcg In Empty Bag 1 bag @ Titrate IV . Q0M EMI Rx#:[id number] Diltiazem 125 mg In 69.125 153.583 Sodium Chloride 0.9% 100 ml @ 10 MG/HR 10 mls/hr IV .[id number] EMI Rx#: [id number] Morphine Sulfate (100 mg/ 5.882 2 ml) 100 mg In Sodium Chloride 0.9% 100 ml @ 1 MG/HR 1.02 mls/hr IV . Q24H EMI Rx#:[id number] levETIRAcetam IV 500 mg 100 100 In Sodium Chloride 0.9% 100 ml @ 400 mls/hr IVPB DAILY [facility] Rx#:[id number] Output: Urine 915 775 190 Other: Voiding Method Indwelling Catheter Indwelling Catheter Indwelling Catheter # Bowel Movements 0 - Exam GENERAL EXAM: Drowsy, confused, febrile 84-year-old white male, on high flow oxygen per Airvo at 60 l/min, in addition to 100% nonrebreather Fio2 81% of the pulse ox between 91%, does not appear to be in respiratory distress, however mentation is altered, patient is more drowsy and confused and unresponsive and at times agitated. The patient seems to be more comfortable while being on a Precedex drip which is essentially controlling his agitation. HEAD: Normocephalic/atraumatic. EYES: Normal reaction of pupils, equal size. Conjunctiva pink, sclera white. NOSE: Clear with pink turbinates. THROAT: No erythema or exudates. NECK: No masses, no JVD, no thyroid enlargement, no adenopathy. CHEST: No chest wall deformity. Symmetrical expansion. LUNGS: Equal air entry with no crackles, wheeze, rhonchi or dullness. CVS: Regular rate and rhythm, normal S1 and S2, no gallops, no murmurs, no rubs ABDOMEN: Soft, nontender. No hepatosplenomegaly, normal bowel sounds, no guarding or rigidity. EXTREMITIES: No clubbing, no edema, no cyanosis, 2+ pulses and upper and lower extremities. MUSCULOSKELETAL: Muscle strength and tone normal. SPINE: No scoliosis or deformity SKIN: No rashes CENTRAL NERVOUS SYSTEM: Drowsy, confused No focal deficits, tone is normal in all 4 extremities. The patient's speech is garbled. Is encephalopathic. He is unable to hold a conversation. At times he states few words which are clearly not understandable. He is unable to follow any commands. He senses painful stimulation and he withdraws and he gets agitated quite easily and he moans. No seizure activity has been noted. His neck is not stiff. The patient's agitation is improved while the patient is on Precedex. Neurologist on the case. - Labs CBC & Chem 7: 02/06/20 06:00 02/06/20 06:00 Labs: Abnormal Lab Results - Last 24 Hours (Table) 02/03/20 02/05/20 02/06/20 Range/Units 04:12 23:27 05:28 WBC (3.8-10.6) k/uL Neutrophils # (1.3-7.7) k/uL Lymphocytes # (1.0-4.8) k/uL Chloride (98-107) mmol/L BUN (9-20) mg/dL Glucose (74-99) mg/dL POC Glucose (mg/dL) 109 H 112 H (75-99) mg/dL LD Isoenzymes 292 H (120-250) U/L CK-MB (CK-2) (0.0-2.4) ng/mL C-Reactive Protein (<10.0) mg/L Total Protein (6.3-8.2) g/dL Albumin (3.5-5.0) g/dL 02/06/20 02/06/20 02/06/20 Range/Units 06:00 06:00 06:00 WBC 10.7 H (3.8-10.6) k/uL Neutrophils # 9.4 H (1.3-7.7) k/uL Lymphocytes # 0.3 L (1.0-4.8) k/uL Chloride 114 H (98-107) mmol/L BUN 26 H (9-20) mg/dL Glucose 118 H (74-99) mg/dL POC Glucose (mg/dL) (75-99) mg/dL LD Isoenzymes (120-250) U/L CK-MB (CK-2) 3.1 H (0.0-2.4) ng/mL C-Reactive Protein 45.0 H (<10.0) mg/L Total Protein 5.7 L (6.3-8.2) g/dL Albumin 2.6 L (3.5-5.0) g/dL Microbiology - Last 24 Hours (Table) 02/02/20 15:21 Blood Culture - Preliminary Blood No Growth after 72 hours Assessment and Plan Plan: #1. Acute hypoxemic respiratory failure secondary to COVID 19 pneumonitis with underlying chronic interstitial fibrosis and COPD, currently on Decadron and the patient completed the course of Remdesivir and receives transfusion with 1 unit of convalescent plasma on 02/01/2020. The patient continues to be on high flow oxygen setting and 60 L in addition to 100% nonrebreather facemask. The patient was taken off the 100% nonrebreather facemask. He was barely able to maintain a saturation above 90%. Chest x-ray showed diffuse bilateral pulmonary infi ltrates, stable and unchanged compared to yesterday. The patient shows no signs of recovery. His mentation remains altered. He is quite short of breath, tachypneic and has labored breathing. #2. Altered mental status, likely related to metabolic encephalopathy, related to severe hypoxemia, fever, related to acute Covid 19 pneumonia, consider the possibility of an embolic phenomena probably induced by his atrial fibrillation in addition to hypercoagulability induced by Covid 19 infection. The patient remains on Precedex #3. Elevated inflammatory markers, increased d-dimer related to acute Covid 19 related infection ay. #4. Prior history of heavy tobacco dependence #5. Diabetes mellitus #6. History of shingles #7. Hyperlipidemia #8. Hypertension #9 atrial fibrillation, rate is controlled at this point in time the patient is on a Cardizem drip at 10 mg an hour. The patient is also on Lovenox therapeutic doses. Plan Keep the patient in intensive care unit DNR/DNI CODE STATUS Update the family and the on his condition. Family opted to proceed with comfort care measures. This will be initiated today with a morphine drip and the patient will be given a scopolamine patch. He'll be kept on 100% nonrebreather facemask. Prognosis poor. He'll likely pass away from respiratory failure and Covid 19 related pneumonia and its complications.
--- NOTE | 2020-02-06 15:36 | P.DS ---
Providers Date of admission: 01/28/20 20:23 Expected date of discharge: 02/06/20 Attending physician: Shelbie Meehan DO Consults: 01/28/20 20:24 Consult Physician Routine Consulting Provider: Emir Hancock Consult Reason/Comments: covid 19 Do you want consulting provider notified?: Yes 01/29/20 17:00 Consult Physician Routine Consulting Provider: Orestes Houston Consult Reason/Comments: urinary retention, penile implant Do you want consulting provider notified?: Yes 02/02/20 13:12 Consult Physician Routine Consulting Provider: Kamala Conde Consult Reason/Comments: ICU management Do you want consulting provider notified?: Already Contacted 02/02/20 18:16 Consult Physician Routine Consulting Provider: Edyta Lowery Consult Reason/Comments: rigidity, COVID Do you want consulting provider notified?: Yes Primary care physician: Physician Nonstaff Hospital Course: Patient today at 13:34 Patient was on comfort measures as per his family wishes. He was a list of his medical problems addressed during this hospitalization. For further details please refer to the electronic chart. COVID 19 pneumonitis with acute hypoxic respiratory failure COPD without acute exacerbation Metabolic encephalopathy Diabetes mellitus type 2 Urinary retention with penile implant Dyslipidemia Hypertension Patient Condition at Discharge: Critical Plan - Discharge Summary Discharge Rx Participant: No New Discharge Prescriptions: No Action Tiotropium Briggs [Spiriva] 1 cap INHALATION RT-DAILY Fluticasone Propionate [Flonase Allergy Relief] 1 spray EA NOSTRIL DAILY Budesonide-Formot 160-4.5 Mcg [Symbicort 160-4.5 Mcg Inhaler] 2 puff INHALATION RT-BID Atorvastatin Calcium [Lipitor] 40 mg PO HS metFORMIN HCL 500 mg PO HS Losartan Potassium [Cozaar] 50 mg PO DAILY Hydrochlorothiazide [hydroCHLOROthiazide] 12.5 mg PO DAILY carBAMazepine 200 mg PO Q12H Aspirin [Adult Low Dose Aspirin EC] 81 mg PO DAILY Docusate [Colace] 100 mg PO BID PRN PRN Reason: Constipation methylPREDNISolone Dose Pack [Medrol Dose Pack] See Taper PO DAILY Azithromycin [Zithromax] See Taper PO DAILY Discharge Medication List Aspirin [Adult Low Dose Aspirin EC] 81 mg PO DAILY 01/28/20 [History] Atorvastatin Calcium [Lipitor] 40 mg PO HS 01/28/20 [History] Azithromycin [Zithromax] See Taper PO DAILY 01/28/20 [History] Budesonide-Formot 160-4.5 Mcg [Symbicort 160-4.5 Mcg Inhaler] 2 puff INHALATION RT-BID 01/28/20 [History] Docusate [Colace] 100 mg PO BID PRN 01/28/20 [History] Fluticasone Propionate [Flonase Allergy Relief] 1 spray EA NOSTRIL DAILY 01/28/20 [History] Hydrochlorothiazide [hydroCHLOROthiazide] 12.5 mg PO DAILY 01/28/20 [History] Losartan Potassium [Cozaar] 50 mg PO DAILY 01/28/20 [History] Tiotropium Briggs [Spiriva] 1 cap INHALATION RT-DAILY 01/28/20 [History] carBAMazepine 200 mg PO Q12H 01/28/20 [History] metFORMIN HCL 500 mg PO HS 01/28/20 [History] methylPREDNISolone Dose Pack [Medrol Dose Pack] See Taper PO DAILY 01/28/20 [History] Follow up Appointment(s)/Referral(s): Nonstaff,Physician [Primary Care Provider] - 1-2 days
[2020-02-06 16:58] LABS: Ferritin 755.3 ng/mL (22.0-322.0)
[2020-02-08 19:37] LABS: LD Isoenzymes 1 25 % (19-38); LD Isoenzymes 2 39 % (30-43); LD Isoenzymes 3 18 % (16-26); LD Isoenzymes 4 7 % (3-12); LD Isoenzymes 5 11 % (3-14); Lactacte Dehydrogenase(LD) ISO 281 U/L (120-250)
[2020-02-11 16:34] LABS: LD Isoenzymes 1 27 % (19-38); LD Isoenzymes 2 40 % (30-43); LD Isoenzymes 3 14 % (16-26); LD Isoenzymes 4 6 % (3-12); LD Isoenzymes 5 13 % (3-14); Lactacte Dehydrogenase(LD) ISO 279 U/L (120-250)
== END 2020-02-06 16:44 | disposition expired | DRG 177 ==
LOC: EC 17:50 → 3SCARD 20:23 → 2SICU 02-02 17:39
PROVIDERS: ADMIT Internal Medicine; ATTEND Internal Medicine
PROC: XW033E5 Introduction of Remdesivir Anti-infective into Peripheral Vein, Percutaneous Approach, New Technology Group 5 (ICD-10-PCS; 2020-01-29)
PROC: XW13325 Transfusion of Convalescent Plasma (Nonautologous) into Peripheral Vein, Percutaneous Approach, New Technology Group 5 (ICD-10-PCS; principal; 2020-02-01)
PROC: 4A133BC Monitoring of Arterial Pressure, Coronary, Percutaneous Approach (ICD-10-PCS; 2020-02-03)
PROC: 02HV33Z Insertion of Infusion Device into Superior Vena Cava, Percutaneous Approach (ICD-10-PCS; 2020-02-03)
DX: U07.1 COVID-19 (principal); G93.41 Metabolic encephalopathy; J12.89 Other viral pneumonia; J96.01 Acute respiratory failure with hypoxia; F31.30 Bipolar disorder, current episode depressed, mild or moderate severity, unspecified; J98.11 Atelectasis; F19.931 Other psychoactive substance use, unspecified with withdrawal delirium; J84.10 Pulmonary fibrosis, unspecified; J43.9 Emphysema, unspecified; E11.9 Type 2 diabetes mellitus without complications; Z51.5 Encounter for palliative care; Z66 Do not resuscitate; E78.5 Hyperlipidemia, unspecified; E83.42 Hypomagnesemia; I10 Essential (primary) hypertension; I45.10 Unspecified right bundle-branch block; N40.1 Benign prostatic hyperplasia with lower urinary tract symptoms; R33.9 Retention of urine, unspecified; R45.1 Restlessness and agitation; Z79.51 Long term (current) use of inhaled steroids; Z79.82 Long term (current) use of aspirin; Z79.84 Long term (current) use of oral hypoglycemic drugs; Z79.899 Other long term (current) drug therapy; I48.91 Unspecified atrial fibrillation; Z87.891 Personal history of nicotine dependence; Z86.19 Personal history of other infectious and parasitic diseases; Z98.890 Other specified postprocedural states; Z87.19 Personal history of other diseases of the digestive system; Z96.9 Presence of functional implant, unspecified
CPT/HCPCS: 36415; 36600; 71045; 71275; 80048; 80053; 80156; 81001; 82550; 82553; 82728; 82805; 83036; 83605; 83615; 83625; 83735; 84145; 85025; 85379; 85610; 85730; 86140; 86850; 86900; 86901; 87040; 93005; 94640; 96365; 96375; 99291